=== PATIENT | female | born 1965 | race Caucasian/White ===

== ENCOUNTER 2016-10-24 01:34 | Emergency (ER) | payer MEDICARE ==
[2016-10-24] MEDS ORDERED: Nitrostat 0.4 MG (ED) SL ONE ×2 (01:56→02:15)
[2016-10-24] MEDS ORDERED: BABY ASPIRIN 81 MG CHEW PO ONE (01:56)
[2016-10-24] MEDS ORDERED: Sodium Chloride 0.9% 1000 ML 1,000 ML IV SCH (02:00)
--- NOTE | 2016-10-24 02:00 | ERPHSYRPT ---
- History of Present Illness Time Seen by Provider: 10/24/16 01:48 Source: patient Exam Limitations: no limitations Physician History: PT DEVELOPED A RASH FROM [place]AMPOO AND CHEST PRESSURE 5 DAYS AGO AND WAS ADMITTED TO [facility] IN [place] FOR 3 DAYS. ABOUT 30 MINUTES AGO PT STARTED WITH A NON-PRODUCTIVE COUGH, CHOKING, CHEST HEAVINESS, SHORTNESS OF AIR , NAUSEA AND CONSTANT DULL MID ABDOMINAL PAIN. Allergies/Adverse Reactions: famotidine [From Pepcid] Allergy (Verified 02/25/14 11:42) insulin lispro [From Humalog] Allergy (Verified 11/17/15 15:41) lidocaine Allergy (Verified 02/25/14 11:42) potassium chloride Allergy (Verified 02/25/14 11:42) sumatriptan [From Imitrex] Allergy (Verified 02/25/14 11:42) sumatriptan succinate [From Imitrex] Allergy (Verified 02/25/14 11:42) Home Medications: Aspirin 81 gm Chew [Baby Aspirin 81 mg Chew] 81 mg PO DAILY 11/17/15 [ History] Dextroamphetamine/Amphetamine [Adderall Xr 30 mg Capsule] 2 tab PO DAILY [History] Docusate Sodium 100 mg [Colace 100 MG] 1 tab PO DAILY 11/17/15 [History] Doxepin HCl 2 tab PO DAILY 11/17/15 [History] Esomeprazole Sodium 40 mg PO BID 11/17/15 [History] Estradiol 1 mg [Estrace 1 mg] 1 tab PO DAILY 11/17/15 [History] Ezetimibe 10 mg [Zetia 10 MG] 1 tab PO HS 11/17/15 [History] Hydrochlorothiazide 25 mg [hydroDIURIL 25 MG] 25 mg PO DAILY 11/17/15 [ History] Hydrocodone Bit/Acetaminophen [[place] 10-325 Tablet] 1 tab PO Q4-6HPRN PRN [History] Insulin Aspart [Novolog Flexpen] 60 units SQ TID 11/17/15 [History] Insulin Degludec [Tresiba Flextouch U-200] 150 units SQ DAILY 11/17/15 [History] Lipase/Protease/Amylase [Creon Dr 24,000 Units Capsule] 2 tab PO TID 11/17/15 [ History] Loratadine 10 mg [Claritin 10 mg] 1 tab PO DAILY 11/17/15 [History] Multivitamin W-Minerals/Lutein [Centrum Silver Tablet] 1 tab PO DAILY 11/17/15 [ History] Promethazine HCl 25 mg [Phenergan 25 mg] 1 tab PO DAILY PRN 11/17/15 [ History] Ranitidine HCl 1 tab PO HS 11/17/15 [History] Rosuvastatin Calcium [Crestor] 1 tab PO DAILY 11/17/15 [History] Carvedilol 3.125 mg [Coreg 3.125 MG] 3.125 mg PO BID 07/14/16 [History] Duloxetine HCl 30 mg [Cymbalta 30 MG Capsule] 30 mg PO DAILY 07/14/16 [ History] Fluoxetine HCl [Prozac] 2 cap PO .AM 07/14/16 [History] Fluoxetine HCl [Prozac] 20 mg PO .NOON 07/14/16 [History] Furosemide 20 mg [Lasix 20 mg] 20 mg PO DAILY 07/14/16 [History] Gabapentin [Neurontin] 800 mg PO QID 07/14/16 [History] Meclizine HCl 25 mg [Antivert 25 mg] 25 mg PO TID PRN PRN 07/14/16 [ History] Melatonin/Pyridoxine HCl (B6) [Melatonin 10 mg Tablet] 2 tab PO HS 07/14/16 [ History] Polyethylene Glycol 3350 17 gm [Miralax Powder 17GM PACKET] 17 gm PO DAILY PRN PRN 07/14/16 [History] Potassium Chloride 20 Meq [Klor-Con 20 MEQ] 20 meq PO QID 07/14/16 [History] Thiothixene 5 mg PO BID 07/14/16 [History] Topiramate [Topamax] 200 mg PO BID 07/14/16 [History] Hx Tetanus, Diphtheria Vaccination/Date Given: No Hx Influenza Vaccination/Date Given: No Hx Pneumococcal Vaccination/Date Given: No - Review of Systems Respiratory: Cough, Dyspnea, Other (CHOKING) Cardiac: Other (CHEST HEAVINESS) Abdominal/Gastrointestinal: Abdominal Pain, Nausea Skin: Rash All Other Systems: Reviewed and Negative - Past Medical History Pertinent Past Medical History: Yes Neurological History: Peripheral Neuropathy ENT History: Other Cardiac History: Other Respiratory History: No Pertinent History Endocrine Medical History: Diabetes Type II Musculoskeletal History: Degenerative Disk Disease, Rheumatoid Arthritis GI Medical History: Diverticulosis, Gallbladder Disease History: No Pertinent History Psycho-Social History: Anxiety, Bipolar, Depression, Other Female Reproductive Disorders: Fibroids Other Medical History: 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 AFFECTS BLE AND LEFT ARM, BOTH HANDS, ALSO HAS EARLY SIGNS/SYMPTOMS OF PARKINSON'S DISEASE - Past Surgical History Past Surgical History: Yes Neuro Surgical History: No Pertinent History Cardiac: No Pertinent History Respiratory: No Pertinent History Gastrointestinal: Cholecystectomy Genitourinary: No Pertinent History Musculoskeletal: Other Female Surgical History: Hysterectomy Other Surgical History: surgery right foot pins/toes,right knee "rebuilt"-screw in place, faered hands neuro/nerve surgeries,right wrist x two cyst removed and bone reconstruction,left wrist also,right eye-[place] removed ?, x two, - Social History Smoking Status: Former smoker How long have you smoked: 12 Exposure to second hand smoke: No Drug Use: none Patient Lives Alone: No - Nursing Vital Signs Nursing Vital Signs: Initial Vital Signs Temperature 99.1 F 10/24/16 01:40 Pulse Rate 106 H 10/24/16 01:40 Respiratory Rate 20 10/24/16 01:40 Blood Pressure 130/70 10/24/16 01:40 O2 Sat by Pulse Oximetry 89 L 10/24/16 01:40 Pain Scale Pain Intensity 0 - Physical Exam General Appearance: alert Eye Exam: PERRL/EOMI Ears, Nose, Throat Exam: pharynx normal, moist mucous membranes Neck Exam: normal inspection Respiratory Exam: lungs clear Cardiovascular Exam: normal heart sounds Gastrointestinal/Abdomen Exam: soft, normal bowel sounds Back Exam: normal range of motion Extremity Exam: No pedal edema Neurologic Exam: alert, cooperative Skin Exam: rash (DIFFUSE MACULAR ERYTHEMA) - Course Nursing assessment & vital signs reviewed: Yes EKG Interpreted by Me: RATE ([id number]), Sinus Tach, NORMAL AXIS, NORMAL INTERVALS - Radiology Exams Chest X-ray Interpretation: Interpreted by me, No Pneumonia - CT Exams Chest CT Interpretation: Tele-radiologist Report (2 cm RIGHT THYROID LOBE NODULE. RIGHT PARASPINAL SOFT TISSUE LESION WHICH IS OVOID MEASURING 2.4 X 1.2 cm ON AXIAL IMAGE 100. RECOMMEND FOLLOWUP MRI. POSSIBLY NERVE SHEATH TUMOR. TRACE LEFT -SIDED PLEURAL EFFUSION AND BIBASILAR ATELECTASIS. SUBOPTIMAL OPACIFICATION OF THE PULMONARY ARTERIES. NO VISUALIZED FILLINF DEFECTS WITHIN THE PULMONARY ARTERIES TO SUGGEST PULMONARY EMBOLI.) Ordered Tests: Active Orders 24 hr Category Date Time Status Accucheck STAT Care 10/24/16 04:03 Active Donation Specialist STAT Care 10/24/16 01:56 Active EKG-ER Only STAT Care 10/24/16 01:56 Active IV Insertion STAT Care 10/24/16 01:56 Active Oxygen-ED Only NASAL CANNULA 2 lpm Care 10/24/16 01:56 Active Pulse Oximetry (ED) STAT Care 10/24/16 01:56 Active CHEST 1 VIEW (PORTABLE) Stat Exams 10/24/16 01:56 Taken CHEST WITH CONTRAST [CT] Stat Exams 10/24/16 02:57 Taken AMYLASE Stat Lab 10/24/16 02:05 Completed ARTERIAL BLOOD GASES Urgent Lab 10/24/16 02:16 Completed CBC W DIFF Stat Lab 10/24/16 02:05 Completed CMP Stat Lab 10/24/16 02:05 Completed D-DIMER QUANTITATION Stat Lab 10/24/16 02:05 Completed LIPASE Stat Lab 10/24/16 02:05 Completed MAGNESIUM Stat Lab 10/24/16 02:05 Completed Manual Differential NC Stat Lab 10/24/16 02:05 Completed NT PRO BNP Stat Lab 10/24/16 02:05 Completed TROPONIN Q3H Lab 10/24/16 02:05 Completed TROPONIN Q3H Lab 10/24/16 05:00 Ordered TROPONIN Q3H Lab 10/24/16 08:00 Ordered TROPONIN Q3H Lab 10/24/16 11:00 Ordered TROPONIN Q3H Lab 10/24/16 14:00 Ordered UA W/RFX UR CULTURE Stat Lab 10/24/16 02:55 Completed Medication Summary Generic Name Dose Route Start Last Admin Trade Name Freq PRN Reason Stop Dose Admin Sodium Chloride 1,000 mls @ 100 mls/hr 10/24/16 02:00 10/24/16 02:27 Sodium Chloride 0.9% 1000 Ml IV 11/23/16 01:59 100 mls/hr .Q10H DANIELITO Administration Discontinued Medications Generic Name Dose Route Start Last Admin Trade Name Freq PRN Reason Stop Dose Admin Aspirin 324 mg 10/24/16 01:56 10/24/16 02:29 Baby Aspirin 81 Mg Chew PO 10/24/16 01:57 324 mg STAT ONE Administration Aspirin Confirm 10/24/16 02:15 Baby Aspirin 81 Mg Chew Administered 10/24/16 02:16 Dose 324 mg .ROUTE .STK-MED ONE Nitroglycerin 0.4 mg 10/24/16 01:56 10/24/16 02:29 Nitrostat 0.4 Mg (Ed) SL 10/24/16 01:57 0.4 mg STAT ONE Administration Nitroglycerin Confirm 10/24/16 02:15 Nitrostat 0.4 Mg (Ed) Administered 10/24/16 02:16 Dose 0.4 mg SL .STK-MED ONE Lab/Rad Data: Laboratory Result Diagrams 10/24/16 02:05 10/24/16 02:05 Laboratory Results 10/24/16 10/24/16 10/24/16 Range/Units 02:55 02:16 02:05 WBC (4.0-10.5) K/mm3 RBC (4.1-5.4) M/mm3 Hgb (12.0-16.0) gm/dl Hct (35-47) % MCV (78-100) fl MCH (26-32) pg MCHC (32-36) g/dl RDW (11.5-14.0) % Plt Count (150-450) K/mm3 MPV (6-9.5) fl D-Dimer 1238 H* (0-500) ng/mL Puncture Site LEFT RADIAL pCO2 42 (35-45) mmHg pO2 68 L (75-100) mmHg Base Excess 1.0 (-2.0-2.0) O2 Saturation 92.8 L (94-100) g/dF ABG pH 7.40 (7.35-7.45) ABG HCO3 26.0 (22-28) ABG O2 Sat (Measured) 96.0 (95-100) % Diego Test YES A-a Gradient 136 a/A Ratio 0.33 Hemoglobin 13.4 Carboxyhemoglobin 1.8 (0.0-6.9) % THgb Methemoglobin 1.4 (1.4-1.5) % Temperature 37.0 C POC O2 Flow Rate 36 % Sodium (136-145) mEq/L Potassium 3.5 (3.5-5.1) mEq/L Chloride (98-107) mEq/L Carbon Dioxide (21-32) mEq/L Anion Gap (5-15) MEQ/L BUN (9-20) mg/dL Creatinine (0.55-1.30) mg/dl Estimated GFR ML/MIN Glucose (70-110) MG/DL Calcium (8.5-10.1) mg/dL Magnesium (1.8-2.4) mg/dL Total Bilirubin (0.2-1.0) mg/dL AST (15-37) U/L ALT (12-78) U/L Alkaline Phosphatase (46-116) U/L Troponin I (0.000-0.056) ng/ml NT-Pro-B Natriuret Pep (0-125) pg/ml Serum Total Protein (6.4-8.2) gm/dL Albumin (3.4-5.0) g/dL Amylase (25-115) U/L Lipase (73-393) U/L Ur Collection Type CLEAN CATCH Urine Color YELLOW (YELLOW) Urine Appearance CLEAR (CLEAR) Urine pH 7.0 (5-6) Ur Specific [place] 1.005 (1.005-1.025) Urine Protein NEGATIVE (Negative) Urine Ketones NEGATIVE (NEGATIVE) Urine Blood NEGATIVE (0-5) Regis/ul Urine Nitrite NEGATIVE (NEGATIVE) Urine Bilirubin NEGATIVE (NEGATIVE) Urine Urobilinogen NORMAL (0-1) mg/dL Ur Leukocyte Esterase NEGATIVE (NEGATIVE) Urine Glucose 1000 (NEGATIVE) mg/dL Specimen Received 10/24/16 0255 10/24/16 10/24/16 10/24/16 Range/Units 02:05 02:05 02:05 WBC 8.8 (4.0-10.5) K/mm3 RBC 4.91 (4.1-5.4) M/mm3 Hgb 13.8 (12.0-16.0) gm/dl Hct 43.3 (35-47) % MCV 88.2 (78-100) fl MCH 28.1 (26-32) pg MCHC 31.9 L (32-36) g/dl RDW 16.0 H (11.5-14.0) % Plt Count 222 (150-450) K/mm3 MPV 11.2 H (6-9.5) fl D-Dimer (0-500) ng/mL Puncture Site pCO2 (35-45) mmHg pO2 (75-100) mmHg Base Excess (-2.0-2.0) O2 Saturation (94-100) g/dF ABG pH (7.35-7.45) ABG HCO3 (22-28) ABG O2 Sat (Measured) (95-100) % Diego Test A-a Gradient a/A Ratio Hemoglobin Carboxyhemoglobin (0.0-6.9) % THgb Methemoglobin (1.4-1.5) % Temperature C POC O2 Flow Rate % Sodium 139 (136-145) mEq/L Potassium 3.5 (3.5-5.1) mEq/L Chloride 101 (98-107) mEq/L Carbon Dioxide 26.5 (21-32) mEq/L Anion Gap 15.4 H (5-15) MEQ/L BUN 11 (9-20) mg/dL Creatinine 0.96 (0.55-1.30) mg/dl Estimated GFR > 60 ML/MIN Glucose 358 H (70-110) MG/DL Calcium 9.0 (8.5-10.1) mg/dL Magnesium 1.8 (1.8-2.4) mg/dL Total Bilirubin 0.40 (0.2-1.0) mg/dL AST 42 H (15-37) U/L ALT 55 (12-78) U/L Alkaline Phosphatase 110 (46-116) U/L Troponin I < 0.017 (0.000-0.056) ng/ml NT-Pro-B Natriuret Pep 472 H (0-125) pg/ml Serum Total Protein 6.6 (6.4-8.2) gm/dL Albumin 3.0 L (3.4-5.0) g/dL Amylase 19 L (25-115) U/L Lipase 76 (73-393) U/L Ur Collection Type Urine Color (YELLOW) Urine Appearance (CLEAR) Urine pH (5-6) Ur Specific [place] (1.005-1.025) Urine Protein (Negative) Urine Ketones (NEGATIVE) Urine Blood (0-5) Regis/ul Urine Nitrite (NEGATIVE) Urine Bilirubin (NEGATIVE) Urine Urobilinogen (0-1) mg/dL Ur Leukocyte Esterase (NEGATIVE) Urine Glucose (NEGATIVE) mg/dL Specimen Received - Progress Discussed with Dr.: Other (SPOKE WITH DR Amelia BENSON([id number]) WHO ACCEPTED PT FOR TRANSFER TO [facility] A DIRECT ADMISSION.) - Departure Time of Disposition: 04:17 Departure Disposition: Transfer ([facility]) Clinical Impression: CHEST HEAVINESS, DYSPNEA, PN, DM, ARTHRITIS, BIPOLAR, ANXIETY Condition: Stable Critical Care Time: No
[2016-10-24 02:13] LABS: Mean Cell Volume 88.2 fl (78-100); Mean Corpuscular Hemoglobin 28.1 pg (26-32); Mean Platelet Volume 11.2 fl (6-9.5); Platelet Count 222 K/mm3 (150-450); Red Blood Count 4.91 M/mm3 (4.1-5.4); White Blood Count 8.8 K/mm3 (4.0-10.5)
[2016-10-24] MEDS ORDERED: BABY ASPIRIN 81 MG CHEW ONE (02:15)
[2016-10-24] MEDS ORDERED: Sodium Chloride 0.9% 1000 ML 1,000 ML ONE (02:15)
[2016-10-24 02:19] LABS: A-aADO2 136; ALLEN TEST OK? YES; ARTERIAL BLOOD GAS FIO2 36 %; ARTERIAL BLOOD GAS PO2 68 mmHg (75-100)
[2016-10-24 02:53] LABS: ALKALINE PHOSPHATASE 110 U/L (46-116); ANION GAP 15.4 MEQ/L (5-15); BLOOD UREA NITROGEN 11 mg/dL (9-20); CHLORIDE 101 mEq/L (98-107); Carbon Dioxide 26.5 mEq/L (21-32); Glucose 358 MG/DL (70-110); LIPASE 76 U/L (73-393); MAGNESIUM 1.8 mg/dL (1.8-2.4); Potassium 3.5 mEq/L (3.5-5.1); SGOT/AST 42 U/L (15-37); SGPT/ALT 55 U/L (12-78); SODIUM 139 mEq/L (136-145); Total Protein 6.6 gm/dL (6.4-8.2)
[2016-10-24 03:02] LABS: ADD URINE CULTURE? NO (NO); Bilirubin NEGATIVE (NEGATIVE); Blood NEGATIVE Ery/ul (0-5); COMPLETE URINE MICROSCOPIC? NO; Collection Type CLEAN CATCH; Glucose 1000 mg/dL (NEGATIVE); Leukocyte Esterase NEGATIVE (NEGATIVE)
[2016-10-24 03:58] VITALS: BP 120/73; PULSE 96; O2SAT 96
[2016-10-24 04:22] LABS: Eosinophil 1 % (0.00-3.0); Total Cells Counted 100
[2016-10-24 04:23] LABS: Platelet Estimate NORMAL (NORMAL)
--- NOTE | 2016-10-24 08:08 | XRAY ---
Indication: Cough, chest heaviness, and elevated d-dimer. Multiple contiguous axial images obtained through the chest using 80 cc Isovue 370 contrast and PE protocol. Comparison: None Pulmonary arteries are opacified adequately. There is nonoccluding pulmonary embolus in the distal right upper lobe branch extending into the posterior segmental branch. No other pulmonary embolus. Heart is not enlarged. Aorta is normal in course and caliber. Precarinal calcified node. No pathologic mediastinal/hilar lymphadenopathy. Right thyroid lobe enlarged with 2 cm hypodense lesion. Examination of the lung parenchyma demonstrates right upper lobe calcified granuloma. No other pulmonary mass/nodule, infiltrate, or effusion. Bony thorax intact with minimal spinal osteophytes. There is a 1.1 x 2.5 cm well-circumscribed T9 right paraspinal soft tissue mass. Limited upper abdomen demonstrates mild fatty liver. Caudate lobe of the liver demonstrates 3 cm patchy hypoattenuation. Impression: 1. Nonoccluding right upper lobe pulmonary embolus. No distal infarct. 2. T9 right paraspinal soft tissue mass better evaluated with outpatient MRI. 3. Fatty liver. There is a more focal hypoattenuation in the caudate lobe that can be better evaluated with CT or MRI with contrast. 4. Right thyroid gland enlargement with 2 cm hypodense lesion. Ultrasound may yield further information if clinically warranted. 5. Evidence for old granulomatous disease. Comment: Preliminary interpretation was made by [facility]. Pulmonary embolus and liver lesion not reported. I gave telephone report to Dr. Payton in the ER at 0805 hrs. on October 24, 2016.
--- NOTE | 2016-10-24 08:13 | XRAY ---
Indication: Cough and short of breath. Comparison: November 17, 2015. Portable chest remains clear with right apical calcified granuloma. Heart is not enlarged. Bony thorax intact with minimal degenerative changes. Impression: Stable nonacute chest with chronic feature.
== END 2016-10-24 05:45 | disposition short-term general hospital (02) ==
LOC: SUPCPDRO 01:34 → ED 01:34
DX: R07.89 Other chest pain (principal); R06.00 Dyspnea, unspecified; J18.9 Pneumonia, unspecified organism; E11.9 Type 2 diabetes mellitus without complications; M19.90 Unspecified osteoarthritis, unspecified site; F31.9 Bipolar disorder, unspecified; F41.9 Anxiety disorder, unspecified; R11.10 Vomiting, unspecified
CPT/HCPCS: 36000; 36415; 36600; 71010; 71260; 80053; 81002; 82150; 82375; 82803; 82962; 83690; 83735; 83880; 84484; 85025; 85379; 93005; 93041; 96360; 96361; 96365; 99285; A9270-GY

== ENCOUNTER 2017-08-31 15:22 | Emergency (ER) | payer MEDICARE ==
[2017-08-31] MEDS ORDERED: BACIGUENT PACKET TP ONE (16:10)
--- NOTE | 2017-08-31 16:15 | ERPHSYRPT ---
- History of Present Illness Time Seen by Provider: 08/31/17 16:10 Source: patient Exam Limitations: no limitations Patient Subjective Stated Complaint: Right Knee, Right Ankle, and left knee pain after falling Triage Nursing Assessment: Pt presents to the ED with complaints of fall from standing, abrasion to left knee, pain to right ankle and foot. Pt states "I skipped a step and fell." Pt denies other complaints, denies loss of cosciousness. Pt states she took oxycontin as prescribed at 0700 prior to fall. No distress noted at this time, skin pwd. Physician History: 52-year-old white female with history of peripheral neuropathy diverticulosis fibroids degenerative disc disease rheumatoid arthritis She arrives with complaint of pain in her left knee pain in her right foot and ankle after falling this morning at around 11:00. Patient's denies any other complaints she did have mild pain in her right knee but states it is radiating from her low right foot. According to patient she is on narcotic analgesia she took one at 7:30 this morning. She takes this 3 times a day. She is on blood thinners. Past medical history includes peripheral neuropathy, diverticulosis, degenerative disc disease, rheumatoid arthritis, anxiety, bipolar depression, past surgical history includes surgery on her right foot right knee hands she's had neurosurgery on her wrist she's had C- section 2 Timing/Duration: today (11:00 this morning) Severity: moderate Modifying Factors: Improves With: other Associated Symptoms: No nausea, No vomiting, No abdominal pain, No shortness of breath, No heartburn, No diaphoresis, No cough, No chills, No chest pain, No fever, No headaches, No loss of appetite, No malaise, No rash, No syncope, No seizure, No weakness Allergies/Adverse Reactions: famotidine [From Pepcid] Allergy (Verified 10/24/16 05:05) insulin lispro [From Humalog] Allergy (Verified 10/24/16 05:05) lidocaine Allergy (Verified 10/24/16 05:05) potassium chloride Allergy (Verified 10/24/16 05:05) sumatriptan [From Imitrex] Allergy (Verified 10/24/16 05:05) sumatriptan succinate [From Imitrex] Allergy (Verified 10/24/16 05:05) Home Medications: Aspirin 81 gm Chew [Baby Aspirin 81 mg Chew] 81 mg PO DAILY 11/17/15 [ History] Dextroamphetamine/Amphetamine [Adderall Xr 30 mg Capsule] 2 tab PO DAILY [History] Doxepin HCl 2 tab PO DAILY 11/17/15 [History] Esomeprazole Sodium 40 mg PO BID 11/17/15 [History] Ezetimibe 10 mg [Zetia 10 MG] 1 tab PO HS 11/17/15 [History] Insulin Aspart [Novolog Flexpen] 60 units SQ TID 11/17/15 [History] Insulin Degludec [Tresiba Flextouch U-200] 150 units SQ DAILY 11/17/15 [History] Lipase/Protease/Amylase [Creon Dr 24,000 Units Capsule] 2 tab PO TID 11/17/15 [ History] Multivitamin W-Minerals/Lutein [Centrum Silver Tablet] 1 tab PO DAILY 11/17/15 [ History] Promethazine HCl 25 mg [Phenergan 25 mg] 1 tab PO DAILY PRN 11/17/15 [ History] Ranitidine HCl 1 tab PO HS 11/17/15 [History] Rosuvastatin Calcium [Crestor] 1 tab PO DAILY 11/17/15 [History] Carvedilol 3.125 mg [Coreg 3.125 MG] 3.125 mg PO BID 07/14/16 [History] Duloxetine HCl 30 mg [Cymbalta 30 MG Capsule] 30 mg PO DAILY 07/14/16 [ History] Furosemide 20 mg [Lasix 20 mg] 20 mg PO DAILY 07/14/16 [History] Meclizine HCl 25 mg [Antivert 25 mg] 25 mg PO TID PRN PRN 07/14/16 [ History] Melatonin/Pyridoxine HCl (B6) [Melatonin 10 mg Tablet] 2 tab PO HS 07/14/16 [ History] Polyethylene Glycol 3350 17 gm [Miralax Powder 17GM PACKET] 17 gm PO DAILY PRN PRN 07/14/16 [History] Potassium Chloride 20 Meq [Klor-Con 20 MEQ] 20 meq PO QID 07/14/16 [History] Thiothixene 5 mg PO BID 07/14/16 [History] Oxycodone HCl/Acetaminophen [Percocet 5-325 mg Tablet] 1 tab PO TID 08/31/17 [ History] Hx Tetanus, Diphtheria Vaccination/Date Given: Yes Hx Influenza Vaccination/Date Given: Yes Hx Pneumococcal Vaccination/Date Given: Yes Immunizations Up to Date: Yes - Review of Systems Constitutional: No Fever, No Chills Eyes: No Symptoms Ears, Nose, & Throat: No Symptoms Respiratory: No Cough, No Dyspnea Cardiac: No Chest Pain, No Edema, No Syncope Abdominal/Gastrointestinal: No Abdominal Pain, No Nausea, No Vomiting, No Diarrhea Genitourinary Symptoms: No Dysuria Musculoskeletal: Other (left knee pain and abrasion, pain left foot and ankle) Skin: Other (abrasion left knee) Neurological: No Symptoms Psychological: No Symptoms Endocrine: No Symptoms All Other Systems: Reviewed and Negative - Past Medical History Pertinent Past Medical History: Yes Neurological History: Peripheral Neuropathy ENT History: Other Cardiac History: Other Respiratory History: No Pertinent History Endocrine Medical History: Diabetes Type II Musculoskeletal History: Degenerative Disk Disease, Rheumatoid Arthritis GI Medical History: Diverticulosis, Gallbladder Disease History: No Pertinent History Psycho-Social History: Anxiety, Bipolar, Depression, Other Female Reproductive Disorders: Fibroids Other Medical History: 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 AFFECTS BLE AND LEFT ARM, BOTH HANDS, ALSO HAS EARLY SIGNS/SYMPTOMS OF PARKINSON'S DISEASE - Past Surgical History Past Surgical History: Yes Neuro Surgical History: No Pertinent History Cardiac: No Pertinent History Respiratory: No Pertinent History Gastrointestinal: Cholecystectomy Genitourinary: No Pertinent History Musculoskeletal: Other Female Surgical History: Hysterectomy Other Surgical History: surgery right foot pins/toes,right knee "rebuilt"-screw in place, fareed hands neuro/nerve surgeries,right wrist x two cyst removed and bone reconstruction,left wrist also,right eye-[place] removed ?, x two, - Social History Smoking Status: Former smoker How long have you smoked: 12 Exposure to second hand smoke: No Drug Use: none Patient Lives Alone: No - Female History Hx Now: No - Nursing Vital Signs Nursing Vital Signs: Initial Vital Signs Temperature 98.8 F 08/31/17 15:36 Pulse Rate 100 H 08/31/17 15:36 Respiratory Rate 16 08/31/17 15:36 Blood Pressure 143/9 08/31/17 15:36 O2 Sat by Pulse Oximetry 96 08/31/17 15:36 Pain Scale Pain Intensity 6 - Physical Exam General Appearance: mild distress Eye Exam: PERRL/EOMI, eyes nml inspection Ears, Nose, Throat Exam: normal ENT inspection, TMs normal, pharynx normal, moist mucous membranes Neck Exam: normal inspection, non-tender, supple, full range of motion Respiratory Exam: normal breath sounds, lungs clear, No respiratory distress Cardiovascular Exam: regular rate/rhythm, normal heart sounds, normal peripheral pulses Gastrointestinal/Abdomen Exam: soft, normal bowel sounds, No tenderness, No mass Back Exam: normal inspection, normal range of motion, No CVA tenderness, No vertebral tenderness Extremity Exam: other (full range of motion all extremities pain with palpation left foot and ankle, abrasion anterior left knee pain with movement left knee) Neurologic Exam: alert, oriented x 3, cooperative, direct sales representative II-XII nml as tested, normal mood/affect, nml cerebellar function, nml station & gait, sensation nml, No motor deficits Skin Exam: warm, dry, other (6 cm abrasion left anterior knee), No rash SpO2 Interpretation: normal (96%) SpO2: 96 Oxygen Delivery: Room Air - Course Nursing assessment & vital signs reviewed: Yes - Radiology Exams Right Ankle X-ray Interpretation: Interpreted by me, Negative, No Fracture, No Subluxation Right Foot X-ray Interpretation: Interpreted by me (hardware in place no fractures no subluxation) Left Knee X-ray Interpretation: Interpreted by me, Negative, No Fracture, No Subluxation Ordered Tests: Active Orders 24 hr Category Date Time Status Wound Care STAT Care 08/31/17 16:10 Active ANKLE (3 VIEWS) Stat Exams 08/31/17 16:11 Taken FOOT (MINIMUM 3 VIEWS) Stat Exams 08/31/17 16:11 Taken KNEE (3 VIEWS) Stat Exams 08/31/17 16:10 Taken Medication Summary Discontinued Medications Generic Name Dose Route Start Last Admin Trade Name Freq PRN Reason Stop Dose Admin Bacitracin Zinc 0.9 gm 08/31/17 16:10 Baciguent Packet TP 08/31/17 16:11 STAT ONE Bacitracin Zinc Confirm 08/31/17 16:32 Baciguent Packet Administered 08/31/17 16:33 Dose 1 gm .ROUTE .STK-MED ONE - Progress Progress: improved Progress Note: 08/31/17 17:04 52-year-old white female with history of chronic pain arrives with complaint of pain in her left anterior knee right foot and ankle after falling this morning at around 11:00. Patient with a proximally 6 cm abrasion to her left anterior knee she states that her knee otherwise hurts but is stable. She also has pain in her right foot and ankle. X-ray of her left knee right foot right ankle all negative for fracture there is hardware noted in the right foot appears to be stable. I've asked the nurses to clean the patient's left knee apply bacitracin and dressing will have the nurses place Todd wrap to the right foot and give patient a postop shoe. Patient is already on chronic narcotic analgesia she states she took one this morning she is due to take another one now she states she would take this at home as she is driving. Consideration was given to giving the patient Toradol injection however patient is on Zarrella toe so will avoid this. Impression 1 accidental fall to contusion left knee, 3 left knee pain 4. Right foot sprain. 5 sprain. Plan as above continue home narcotic analgesia 08/31/17 17:09 The patient's tetanus is up-to-date - Departure Time of Disposition: 17:06 Departure Disposition: Home Clinical Impression: Abrasion, left knee, initial encounter Accidental fall Qualifiers: Encounter type: initial encounter Qualified Code(s): W19.XXXA - Unspecified fall, initial encounter Contusion of left knee Qualifiers: Encounter type: initial encounter Qualified Code(s): S80.02XA - Contusion of left knee, initial encounter Right foot sprain Qualifiers: Encounter type: initial encounter Qualified Code(s): S93.601A - Unspecified sprain of right foot, initial encounter Right ankle sprain Qualifiers: Encounter type: initial encounter Involved ligament of ankle: unspecified ligament Qualified Code(s): S93.401A - Sprain of unspecified ligament of right ankle, initial encounter Condition: Fair Critical Care Time: No Referrals: OMAR BENSON MD [Primary Care Provider] - Instructions: Contusion (DC), Preventing Falls Additional Instructions: Return home. Ice to contused areas 24-48 hours. Narcotic analgesia as prescribed by your family doctor or pain program control analyst. Bacitracin to abrasion until healed. Follow-up with your family doctor if symptoms are worse no better in 48 hours, or persist longer than one week. Return for acute distress or for severe symptoms.
[2017-08-31] MEDS ORDERED: BACIGUENT PACKET ONE (16:32)
--- NOTE | 2017-08-31 17:05 | XRAY ---
Exam: 3 view right ankle series from 08/31/2017. Comparison: None available. Indication: Fall, right ankle/foot pain. Findings: AP, oblique, and lateral radiographs of the right ankle were obtained. The lateral image is slightly rotated. I see no acute fracture of the distal right tibia or fibula. There is a small chronic-appearing, oval-shaped, calcification adjacent to the medial malleolus tip which probably represents an accessory ossicle. The right ankle mortise appears well-preserved and is uniform. There is a question of slight soft tissue prominence overlying the lateral aspect of the distal portion of the right ankle and hindfoot. Correlate clinically. The subtalar joint appears unremarkable. Prominent plantar and posterior calcaneal spurring is seen. Impression: 1. No acute fracture or dislocation of the right ankle is seen. There is question of minimal soft tissue swelling overlying the lateral aspect of the distal right ankle and hindfoot on the AP image. 2. Prominent plantar and posterior right calcaneal spurring is seen.
--- NOTE | 2017-08-31 17:06 | XRAY ---
Exam: 3 view left knee series from 08/31/2017. Comparison: 3 view left knee series from 05/25/2013. Indication: Fall, left knee pain. Findings: AP, internal rotation, and lateral radiographs of the left knee were obtained. I see no acute fracture or dislocation. Minimal suprapatellar fluid cannot be excluded. This is unchanged from 05/25/2013. Mild prepatellar soft tissue prominence/swelling is seen. No radiopaque soft tissue foreign body is seen. The patellofemoral joint appears maintained. Minor spurring is seen at the anterior superior and posterior superior margin of the left patella. There is mild to moderate narrowing of the medial compartment of the left knee joint with mild marginal spurring. This is unchanged. The lateral compartment of the left knee joint appears unremarkable. No other focal bone lesion is seen. Impression: 1. No acute left knee fracture or dislocation is seen. I cannot exclude a minimal amount of suprapatellar fluid. However, this is unchanged from 05/25/2013. 2. There is some prepatellar and infrapatellar anterior soft tissue prominence which could represent superficial soft tissue swelling. This is more prominent than that noted on 05/25/2013. Correlate clinically. 3. Predominantly mild to moderate medial compartment left knee joint osteoarthritis. This appears about the same as 05/25/2013.
--- NOTE | 2017-08-31 17:11 | XRAY ---
Exam: 3 views of the right foot from 08/31/2017. Comparison: 3 views of the right foot from 02/10/2016. Indication: Fall, right ankle/foot pain. Findings: AP, oblique, and lateral films of the right foot were obtained. I see no acute fracture or dislocation within the right foot. There is evidence of prior surgery with a small screw projected over the distal right first metatarsal head. It appears the patient may have had a prior bunionectomy. Alignment of the right first MTP joint appears unremarkable. The tarsal-metatarsal joints align correctly. Moderate plantar and posterior right calcaneal spurs is again seen. No other focal bone lesion is seen. No radiopaque soft tissue foreign body is seen. Impression: 1. No acute fracture or dislocation of the right foot is seen. 2. Evidence of prior surgery at the level of the distal right first metatarsal head with a threaded screw projected over this region. 3. There is at least moderate plantar and posterior right calcaneal spurring representing no change from 02/10/2016.
[2017-08-31 17:27] VITALS: BP 142/74; PULSE 93; O2SAT 98
== END 2017-08-31 17:28 | disposition home or self-care (01) ==
LOC: ED 15:22
DX: W19.XXXA Unspecified fall, initial encounter (principal); S80.02XA Contusion of left knee, initial encounter; S93.601A Unspecified sprain of right foot, initial encounter; S93.491A Sprain of other ligament of right ankle, initial encounter
CPT/HCPCS: 73562; 73610; 73630; 99283; A9270-GY

== ENCOUNTER 2018-09-09 17:01 | Emergency (ER) | payer MEDICARE ==
[2018-09-09 17:17] VITALS: O2SAT 96
--- NOTE | 2018-09-09 18:33 | ERPHSYRPT ---
- History of Present Illness Source: patient Exam Limitations: no limitations Patient Subjective Stated Complaint: pt here for pain to left hand for a week now, she states she fell land got hand caught in fencing, Triage Nursing Assessment: pt alert, resp easy, skin w/d/p, walked in with cane , she has yellow bruising to left hand, no swelling nited Physician History: Pt is a 53 y/o female that presented to the ER after injuring her L hand. Pt was walking down stairs and tripped. She grabbed the rail of the [employer] and her hand got cought between the rail and the wall. Pt has some limited ROM and swelling of soft tissue. Pt denied all other complains. Occurred: just prior to arrival Quality: aching Severity of Pain-Max: mild Severity of Pain-Current: mild Extremities Pain Location: hand: left (soft tissue swelling and pain in the L hand) Modifying Factors: Improves With: cold therapy, pain medication Associated Symptoms: none Allergies/Adverse Reactions: famotidine [From Pepcid] Allergy (Severe, Verified 09/09/18 17:18) Vomiting insulin lispro [From Humalog] Allergy (Severe, Verified 09/09/18 17:18) Anaphylactic Reaction lidocaine Allergy (Severe, Verified 09/09/18 17:18) Anaphylactic Reaction pt states all "edgar" potassium chloride Allergy (Severe, Verified 09/09/18 17:18) Swelling of Tongue and Lips liquid potassium caused tongue swelling. pt takes tablets without issue sumatriptan [From Imitrex] Allergy (Severe, Verified 09/09/18 17:18) Anaphylactic Reaction sumatriptan succinate [From Imitrex] Allergy (Severe, Verified 09/09/18 17:18) Anaphylactic Reaction zolpidem [From Ambien] Allergy (Verified 09/09/18 17:18) Home Medications: Aspirin 81 gm Chew [Baby Aspirin 81 mg Chew] 81 mg PO DAILY 11/17/15 [ History] Doxepin HCl 2 tab PO DAILY 11/17/15 [History] Insulin Aspart [Novolog Flexpen] 55 units SQ TID 11/17/15 [History] Insulin Degludec [Tresiba Flextouch U-200] 150 units SQ DAILY 11/17/15 [History] Lipase/Protease/Amylase [Creon Dr 24,000 Units Capsule] 2 tab PO TID 11/17/15 [ History] Multivitamin W-Minerals/Lutein [Centrum Silver Tablet] 1 tab PO DAILY 11/17/15 [ History] Promethazine HCl 25 mg [Phenergan 25 mg] 1 tab PO DAILY PRN 11/17/15 [ History] Ranitidine HCl 1 tab PO HS 11/17/15 [History] Rosuvastatin Calcium [Crestor] 1 tab PO DAILY 11/17/15 [History] Carvedilol 3.125 mg [Coreg 3.125 MG] 3.125 mg PO BID 07/14/16 [History] Duloxetine HCl 30 mg [Cymbalta 30 MG Capsule] 60 mg PO DAILY 07/14/16 [ History] Furosemide 20 mg [Lasix 20 mg] 20 mg PO DAILY 07/14/16 [History] Meclizine HCl 25 mg [Antivert 25 mg] 25 mg PO TID PRN PRN 07/14/16 [ History] Melatonin/Pyridoxine HCl (B6) [Melatonin 10 mg Tablet] 2 tab PO HS 07/14/16 [ History] Polyethylene Glycol 3350 17 gm [Miralax Powder 17GM PACKET] 17 gm PO DAILY PRN PRN 07/14/16 [History] Potassium Chloride 20 Meq [Klor-Con 20 MEQ] 20 meq PO TID 07/14/16 [History] Oxycodone HCl/Acetaminophen [Percocet 5-325 mg Tablet] 1 tab PO TID 08/31/17 [ History] Cyclobenzaprine HCl [Flexeril] 5 mg PO TID 03/07/18 [History] Haloperidol 5 mg [Haldol 5 MG] 5 mg PO BID 03/07/18 [History] Temazepam 15 mg [Restoril 15 MG] 15 mg DAILY 09/09/18 [History] Hx Tetanus, Diphtheria Vaccination/Date Given: Yes Hx Influenza Vaccination/Date Given: Yes Hx Pneumococcal Vaccination/Date Given: Yes Immunizations Up to Date: Yes - Review of Systems Constitutional: No Fever, No Chills Musculoskeletal: Other (hand pain on the L), No Back Pain, No Neck Pain - Past Medical History Pertinent Past Medical History: Yes Neurological History: Migraines, Peripheral Neuropathy ENT History: Other Cardiac History: Other Respiratory History: Other Endocrine Medical History: Diabetes Type II, Hypothyroidism, Other Musculoskeletal History: Osteoarthritis GI Medical History: Diverticulosis, GERD, Gallbladder Disease History: No Pertinent History Psycho-Social History: Anxiety, Bipolar, Depression, Other Female Reproductive Disorders: Fibroids Other Medical History: Diabetic neuropathy in B hands and feet. Psoratic OA. Liver polyps, Pt sleeps with 2L O2. Blockages in heart valves that are not severe enough to do surgery. PE blood clots. - Past Surgical History Past Surgical History: Yes Neuro Surgical History: No Pertinent History Cardiac: No Pertinent History Respiratory: No Pertinent History Gastrointestinal: Cholecystectomy Genitourinary: No Pertinent History Musculoskeletal: Other Female Surgical History: Hysterectomy Other Surgical History: surgery right foot pins/toes,right knee "rebuilt"-screw in place, fareed hands neuro/nerve surgeries,right wrist x two cyst removed and bone reconstruction,left wrist also,right eye-[place] removed ?, x two, back surgery - Social History Smoking Status: Never smoker How long have you smoked: 12 Exposure to second hand smoke: No Drug Use: none Patient Lives Alone: No - Female History Hx Last Menstrual Period: post Hx Now: No - Nursing Vital Signs Nursing Vital Signs: Initial Vital Signs Temperature 97.0 F 09/09/18 17:11 Pulse Rate 106 H 09/09/18 17:11 Respiratory Rate 16 09/09/18 17:11 Blood Pressure 104/83 09/09/18 17:11 O2 Sat by Pulse Oximetry 96 09/09/18 17:11 Pain Scale Pain Intensity 8 - Physical Exam General Appearance: alert Back Exam: normal inspection, No vertebral tenderness Shoulder Exam: normal inspection Elbow/Forearm Exam: normal inspection Wrist Exam: normal inspection Hand Exam: limited ROM (secondary to mild soft tissue swelling.) Neuro/Tendon Exam: normal sensation, normal motor functions SpO2: 96 - Radiology Exams Left Hand X-ray Interpretation: Interpreted by me (No fracture. Soft tissue swelling.) Ordered Tests: Active Orders 24 hr Category Date Time Status HAND (MINIMUM 3 VIEWS) Stat Exams 09/09/18 18:21 Taken - Progress Progress: unchanged Progress Note: 09/09/18 18:32 Pt was seen and examined. XR of L hand did not show any fracture or bony injury. Some soft tissue swelling. Pt should Ice the hand and elevate. She can use OTC pain meds as needed. Will see patient in: office Counseled pt/family regarding: need for follow-up - Departure Departure Disposition: Home Clinical Impression: Injury of left hand Condition: Stable Critical Care Time: No Referrals: OMAR BENSON MD [Primary Care Provider] - Additional Instructions: Ice and elevate the L hand. Use OTC meds for pain. F/U with PCP.
[2018-09-09 18:48] VITALS: BP 103/77; PULSE 95
--- NOTE | 2018-09-09 22:16 | XRAY ---
Indication: Pain following fall one week ago. Comparison: None 3 views of the left hand demonstrates mild degenerative changes base 1st metacarpal. No other bony, articular, or soft tissue abnormalities.
== END 2018-09-09 18:55 | disposition home or self-care (01) ==
LOC: ED 17:01
DX: S69.92XA Unspecified injury of left wrist, hand and finger(s), initial encounter (principal); W10.9XXA Fall (on) (from) unspecified stairs and steps, initial encounter; Z79.899 Other long term (current) drug therapy; E11.9 Type 2 diabetes mellitus without complications
CPT/HCPCS: 73130; 99283

== ENCOUNTER 2018-11-04 20:41 | Emergency (ER) | payer MEDICARE ==
[2018-11-04 21:00] VITALS: O2SAT 97
--- NOTE | 2018-11-04 21:11 | ERPHSYRPT ---
- History of Present Illness Time Seen by Provider: 11/04/18 21:01 Source: patient Patient Subjective Stated Complaint: Left upper leg pain Triage Nursing Assessment: Patient ambulated back to ED and transferred self to bed. Patient A+O X3. Patient's skin pink, warm and dry. Patient complains of left upper leg pain from groin to knee constant, sharp since yesterday. Patient denies injury. Patient's left groin noted to be red and galded. No redness, warmth or swelling noted to left upper leg. Patient states pain starts at groin and goes down behind left knee. Pulses noted and strong. Physician History: 53-year-old white female with history of schizophrenia, bipolar depression, associative identity disorder, dorsalis a, chronic pain syndrome, diabetes who apparently has had PEs in the past arrives with complaint of pain in her left side radiating to her left knee symptoms since yesterday she denies any injury no fever no nausea no vomiting. Patient is chronically on Xaralto and aspirin, she is also chronically on oxycodone temazepam Past medical history includes schizophrenia, bipolar depression, dissociative identity disorder, personality, abdominal pain, pancreatitis, diabetes type 2, irritable bowel syndrome, chronic pain syndrome, GERD, COPD, osteoarthritis, liver polyps, she states that she's had blockage in her heart but nothing surgical. Past surgical history includes cholecystectomy, hysterectomy, ORIF of foot, right knee, hand surgery bilaterally, chorizon removed from eye, , back surgery. Timing/Duration: yesterday Severity: moderate Modifying Factors: Improves With: nothing Associated Symptoms: rash (gaulded skin left inguinal region), No nausea, No vomiting, No abdominal pain, No shortness of breath, No heartburn, No diaphoresis, No cough, No chills, No chest pain, No fever, No headaches, No loss of appetite, No malaise Allergies/Adverse Reactions: famotidine [From Pepcid] Allergy (Severe, Verified 11/04/18 20:47) Vomiting insulin lispro [From Humalog] Allergy (Severe, Verified 11/04/18 20:47) Anaphylactic Reaction lidocaine Allergy (Severe, Verified 11/04/18 20:47) Anaphylactic Reaction pt states all "edgar" potassium chloride Allergy (Severe, Verified 11/04/18 20:47) Swelling of Tongue and Lips liquid potassium caused tongue swelling. pt takes tablets without issue sumatriptan [From Imitrex] Allergy (Severe, Verified 11/04/18 20:47) Anaphylactic Reaction sumatriptan succinate [From Imitrex] Allergy (Severe, Verified 11/04/18 20:47) Anaphylactic Reaction zolpidem [From Ambien] Allergy (Verified 11/04/18 20:47) Home Medications: Albuterol Sulfate [Proair Respiclick] 90 mcg IH QID 11/04/18 [History] Alirocumab [Praluent Pen] 75 mg SQ UD 11/04/18 [History] Ascorbic Acid 500 mg [Vitamin C 500 MG] 500 mg PO DAILY 11/04/18 [History] Aspirin EC 81 mg [Ecotrin 81 mg] 81 mg PO DAILY 11/04/18 [History] Calcium Citrate [Calcitrate] 200 mg PO TID 11/04/18 [History] Carvedilol 3.125 mg [Coreg 3.125 MG] 3.125 mg PO BID 11/04/18 [History] Clobetasol Propionate/Emoll [Clobetasol Emollient 0.05% Crm] 15 gm TP 2XW [History] Cyanocobalamin (Vitamin B-12) [Vitamin B-12] 500 mcg PO DAILY 11/04/18 [History] Doxepin HCl 100 mg PO HS 11/04/18 [History] Duloxetine HCl 30 mg [Cymbalta 30 MG Capsule] 60 mg PO DAILY 11/04/18 [ History] Ergocalciferol (Vitamin D2) [Drisdol] 50,000 unit PO WEEKLY 11/04/18 [History] Esomeprazole Magnesium [Nexium] 40 mg PO DAILY 11/04/18 [History] Furosemide 20 mg [Lasix 20 mg] 20 mg PO BID 11/04/18 [History] Gabapentin Enacarbil [Horizant] 600 mg PO HS 11/04/18 [History] Glimepiride 4 mg [Amaryl 4 mg] 4 mg PO BID 11/04/18 [History] Glycopyrrolate/Formoterol Fum [Bevespi Aerosphere Inhaler] 9 mcg IH BID [History] Haloperidol 5 mg [Haldol 5 MG] 5 mg PO TID 11/04/18 [History] Icosapent Ethyl [Vascepa] 1 gm PO BID 11/04/18 [History] Insulin Aspart Prot/Insuln Asp [Novolog Mix 70-30 Flexpen Syrn] 25 unit SQ TID 11/04/18 [History] Insulin Glargine,Hum.rec.anlog [Lantus Solostar] 80 unit SQ BID 11/04/18 [ History] Ipratropium/Albuterol Sulfate [Combivent Inhaler] 14.7 gm IH QID 11/04/18 [ History] Ipratropium/Albuterol Sulfate [Iprat-Albut 0.5-3(2.5) mg/3 ml] 3 ml IH Q6H 11/04 [History] Levothyroxine Sodium 75 Mcg [Synthroid 75 Mcg] 75 mcg PO DAILY 11/04/18 [ History] Lipase/Protease/Amylase [Creon Dr 24,000 Units Capsule] 2 each PO QID 11/04/18 [ History] Loxapine Succinate [Loxapine] 10 mg PO BID 11/04/18 [History] Metoclopramide HCl 5 mg PO HS 11/04/18 [History] Montelukast Sodium 10 mg [Singulair 10 MG] 10 mg PO DAILY 11/04/18 [History] Multivit-Min/Iron/Folic/Lutein [Centrum Silver Women Tablet] 1 each PO DAILY 06/20 [History] Mupirocin [Bactroban OINTMENT] 22 gm TP TID 11/04/18 [History] Nystatin 4 ml PO QID 11/04/18 [History] Oxycodone HCl/Acetaminophen [Percocet 5-325 mg Tablet] 1 each PO TID 11/04/18 [ History] Pioglitazone 30 mg [Actos 30 MG] 30 mg PO DAILY 11/04/18 [History] Polyethylene Glycol 3350 17 gm [Miralax Powder 17GM PACKET] 17 gm PO DAILY [History] Potassium Chloride 10 Meq Tab* [Klor Con 10 MEQ] 10 meq PO TID 11/04/18 [ History] Promethazine HCl 12.5 mg PO DAILY 11/04/18 [History] Ranitidine HCl [Zantac] 300 mg PO DAILY 11/04/18 [History] Rivaroxaban 10 mg Tablet [Xarelto 10 mg Tablet] 10 mg PO DAILY 11/04/18 [ History] Topiramate 100 mg PO BID 11/04/18 [History] Hx Tetanus, Diphtheria Vaccination/Date Given: Yes Hx Influenza Vaccination/Date Given: Yes Hx Pneumococcal Vaccination/Date Given: No Immunizations Up to Date: Yes - Review of Systems Constitutional: No Fever, No Chills Eyes: No Symptoms Ears, Nose, & Throat: No Symptoms Respiratory: No Cough, No Dyspnea Cardiac: No Chest Pain, No Edema, No Syncope Abdominal/Gastrointestinal: No Abdominal Pain, No Nausea, No Vomiting, No Diarrhea Musculoskeletal: Other (left thigh pain since yesterday), No Neck Pain, No Fall , No Injury Skin: Other (gaulded skin left inguinal region) Neurological: No Dizziness, No Focal Weakness, No Sensory Changes Psychological: No Symptoms Endocrine: No Symptoms All Other Systems: Reviewed and Negative - Past Medical History Pertinent Past Medical History: Yes Neurological History: Migraines, Peripheral Neuropathy ENT History: Other Cardiac History: Other Respiratory History: Other Endocrine Medical History: Diabetes Type II, Hypothyroidism, Other Musculoskeletal History: Osteoarthritis GI Medical History: Diverticulosis, GERD, Gallbladder Disease History: No Pertinent History Psycho-Social History: Anxiety, Bipolar, Depression, Other Female Reproductive Disorders: Fibroids Other Medical History: Diabetic neuropathy in B hands and feet. Psoratic OA. Liver polyps, Pt sleeps with 2L O2. Blockages in heart valves that are not severe enough to do surgery. PE blood clots, schizophrenia - Past Surgical History Past Surgical History: Yes Neuro Surgical History: No Pertinent History Cardiac: No Pertinent History Respiratory: No Pertinent History Gastrointestinal: Cholecystectomy Genitourinary: No Pertinent History Musculoskeletal: Other Female Surgical History: Hysterectomy, Section Other Surgical History: surgery right foot pins/toes,right knee "rebuilt"-screw in place, fareed hands neuro/nerve surgeries,right wrist x two cyst removed and bone reconstruction,left wrist also,right eye-[place] removed ?, x two, back surgery - Social History Smoking Status: Never smoker How long have you smoked: 12 Exposure to second hand smoke: No Drug Use: none Patient Lives Alone: No - Female History Hx Last Menstrual Period: Partial hysterctomy Hx Now: No - Nursing Vital Signs Nursing Vital Signs: Initial Vital Signs Temperature 99.3 F 11/04/18 20:47 Pulse Rate 110 H 11/04/18 20:47 Respiratory Rate 18 11/04/18 20:47 Blood Pressure 107/74 11/04/18 20:47 O2 Sat by Pulse Oximetry 97 11/04/18 20:47 Pain Scale Pain Intensity 8 - Physical Exam General Appearance: no apparent distress, alert Eye Exam: PERRL/EOMI, eyes nml inspection Ears, Nose, Throat Exam: normal ENT inspection, TMs normal, pharynx normal, moist mucous membranes Neck Exam: normal inspection, non-tender, supple, full range of motion Respiratory Exam: normal breath sounds, lungs clear, No respiratory distress Cardiovascular Exam: regular rate/rhythm, normal heart sounds, normal peripheral pulses, capillary refill <2 sec Gastrointestinal/Abdomen Exam: soft, normal bowel sounds, No tenderness, No mass Back Exam: normal inspection, normal range of motion, No CVA tenderness, No vertebral tenderness Extremity Exam: normal inspection, normal range of motion, pelvis stable, other (mild tenderness withpalpation left thigh) Skin Exam: other (erythematous skin left groin) SpO2 Interpretation: normal (97%) SpO2: 97 - Course Nursing assessment & vital signs reviewed: Yes Ordered Tests: Active Orders 24 hr Category Date Time Status CBC W DIFF Stat Lab 11/04/18 21:53 Completed CMP Stat Lab 11/04/18 21:53 Completed D-DIMER QUANTITATION Stat Lab 11/04/18 21:53 Completed PROTIME WITH INR Stat Lab 11/04/18 21:53 Completed PTT Stat Lab 11/04/18 21:53 Completed Medication Summary Discontinued Medications Generic Name Dose Route Start Last Admin Trade Name Freq PRN Reason Stop Dose Admin Clotrimazole 30 gm 11/04/18 22:06 Lotrimin Cream 30 Gm TP 11/04/18 22:07 STAT ONE Potassium Chloride 20 meq 11/04/18 22:06 Klor Con 10 Meq PO 11/04/18 22:07 STAT ONE Lab/Rad Data: Laboratory Result Diagrams 11/04/18 21:53 11/04/18 21:53 Laboratory Results 11/04/18 11/04/18 11/04/18 Range/Units 21:53 21:53 21:53 WBC 14.2 H (4.0-10.5) K/mm3 RBC 4.13 (4.1-5.4) M/mm3 Hgb 10.6 L (12.0-16.0) gm/dl Hct 34.9 L (35-47) % MCV 84.5 (78-100) fl MCH 25.6 L (26-32) pg MCHC 30.4 L (32-36) g/dl RDW 17.2 H (11.5-14.0) % Plt Count 241 (150-450) K/mm3 MPV 10.7 H (6-9.5) fl Gran % 66.4 H (36.0-66.0) % Eos # (Auto) 0.48 (0-0.5) Absolute Lymphs (auto) 3.54 (1.0-4.6) Absolute Monos (auto) 0.74 (0.0-1.3) Lymphocytes % 24.9 (24.0-44.0) % Monocytes % 5.2 (0.0-12.0) % Eosinophils % 3.4 (0.00-5.0) % Basophils % 0.1 (0.0-0.4) % Absolute Granulocytes 9.41 H (1.4-6.9) Basophils # 0.02 (0-0.4) PT 12.3 (9.95-12.35) SECONDS INR 1.09 (0.8-3.0) APTT 40.7 H (25.3-37.0) SECONDS D-Dimer 269 (215-500) ng/mL Sodium 140 (137-145) mmol/L Potassium 3.2 L (3.5-5.1) mmol/L Chloride 105 (98-107) mmol/L Carbon Dioxide 30 (22-30) mmol/L Anion Gap 8.9 (5-15) MEQ/L BUN 12 (7-17) mg/dL Creatinine 0.59 (0.52-1.04) mg/dL Estimated GFR > 60.0 ML/MIN Glucose 138 H (74-106) mg/dL Calcium 9.1 (8.4-10.2) mg/dL Total Bilirubin 0.30 (0.2-1.3) mg/dL AST 15 (14-36) U/L ALT 18 (0-35) U/L Alkaline Phosphatase 92 (38-126) U/L Serum Total Protein 6.4 (6.3-8.2) g/dL Albumin 3.6 (3.5-5.0) g/dL - Progress Progress: improved Progress Note: 11/04/18 21:59 Patient's d-dimer within normal limits. 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 Patient did have a potassium of 3.2 will give patient potassium 20 mEq orally. Patient also with what appears to be candidal dermatitis in her groin will place her on clotrimazole cream to apply to the area twice a day for 7 days. Patient to followup with her family . - Departure Departure Disposition: Home Clinical Impression: Left thigh pain, Candidal dermatitis Condition: Fair Critical Care Time: No Referrals: OMAR BENSON MD [Primary Care Provider] - Additional Instructions: Return home Lotrimin cream to groin area twice a day for 7 days. Continue oxycodone as prescribed by your family doctor as needed for pain. Followup with your family . Return for acute distress or for severe symptoms.
[2018-11-04 21:34] LABS: BASOPHIL % 0.1 % (0.0-0.4); Basophil (Absolute #) 0.02 (0-0.4); Eosinophil % 3.4 % (0.00-5.0); Eosinophil (Absolute #) 0.48 (0-0.5); Granulocyte Absolute (ANC) 9.41 (1.4-6.9); Granulocytes % 66.4 % (36.0-66.0); Hematocrit 34.9 % (35-47); Hemoglobin 10.6 gm/dl (12.0-16.0); Lymphocyte (Absolute #) 3.54 (1.0-4.6); Lymphocytes % 24.9 % (24.0-44.0); Mean Cell Volume 84.5 fl (78-100); Mean Corpuscular Hgb Concent. 30.4 g/dl (32-36); Mean Platelet Volume 10.7 fl (6-9.5); Monocyte (Absolute #) 0.74 (0.0-1.3); Monocytes % 5.2 % (0.0-12.0); Platelet Count 241 K/mm3 (150-450); Red Blood Count 4.13 M/mm3 (4.1-5.4); Red Cell Distribution Width 17.2 % (11.5-14.0); White Blood Count 14.2 K/mm3 (4.0-10.5)
[2018-11-04 21:45] VITALS: BP 116/68; PULSE 105
[2018-11-04 21:47] LABS: INR 1.09 (0.8-3.0); PROTIME 12.3 SECONDS (9.95-12.35)
[2018-11-04 21:50] LABS: PTT 40.7 SECONDS (25.3-37.0)
[2018-11-04 21:51] LABS: ALBUMIN 3.6 g/dL (3.5-5.0); ALKALINE PHOSPHATASE 92 U/L (38-126); ANION GAP 8.9 MEQ/L (5-15); BLOOD UREA NITROGEN 12 mg/dL (7-17); CHLORIDE 105 mmol/L (98-107); Calcium 9.1 mg/dL (8.4-10.2); Carbon Dioxide 30 mmol/L (22-30); Creatinine 1 0.59 mg/dL (0.52-1.04); Glucose 138 mg/dL (74-106); Potassium 3.2 mmol/L (3.5-5.1); SGOT/AST 15 U/L (14-36); SGPT/ALT 18 U/L (0-35); SODIUM 140 mmol/L (137-145); Total Protein 6.4 g/dL (6.3-8.2)
[2018-11-04 21:55] LABS: Mean Corpuscular Hemoglobin 25.6 pg (26-32)
[2018-11-04] MEDS ORDERED: LOTRIMIN CREAM 30 GM TP ONE (22:06)
[2018-11-04] MEDS ORDERED: Klor Con 10 MEQ PO ONE ×2 (22:06→22:13)
== END 2018-11-04 22:29 | disposition home or self-care (01) ==
LOC: ED 20:41
DX: M79.652 Pain in left thigh (principal); B37.2 Candidiasis of skin and nail
CPT/HCPCS: 36415; 80053; 85025; 85379; 85610; 85730; 99283; A9270-GY

== ENCOUNTER 2019-02-27 18:24 | Emergency (ER) | payer MEDICARE ==
[2019-02-27 18:59] VITALS: BP 114/68; PULSE 95; O2SAT 95
--- NOTE | 2019-02-27 19:25 | ERPHSYRPT ---
- History of Present Illness Time Seen by Provider: 02/27/19 19:12 Source: patient Exam Limitations: no limitations Patient Subjective Stated Complaint: Right heel and lower leg pain Triage Nursing Assessment: Patient brought back to ED via w/c and transferred self to bed. Patient A+O X 3. Patient's skin pink, warm and dry. Patient complains of right lower leg and heel pain after stepping down steps yesterday and felt a "pop" and a sharp pain in the middle of heel that caused pain that went up to her right knee. Patient's right heel noted to be warm, red and swollen with sharp intermitent pain when walking. Physician History: 53-year-old female endorses a remote right activities tendon injury during a physical therapy session 5 months ago has been doing well. Yesterday was stepping down a step when she had sudden onset of pain like a bubble popping" in the back of her right ankle area since that time she is constant moderate pain that is worse with walking and better with rest and elevation. She tried one dose of ibuprofen yesterday with mild relief none since. No fevers nausea vomiting. No knee pain. A focal numbness or weakness. Endorses swelling and warmth of the back of the right Achilles as well. PMH: Patient versus a history of diabetes Social: Patient denies tobacco Allergies/Adverse Reactions: famotidine [From Pepcid] Allergy (Severe, Verified 02/27/19 18:49) Vomiting insulin lispro [From Humalog] Allergy (Severe, Verified 02/27/19 18:49) Anaphylactic Reaction lidocaine Allergy (Severe, Verified 02/27/19 18:49) Anaphylactic Reaction pt states all "edgar" potassium chloride Allergy (Severe, Verified 02/27/19 18:49) Swelling of Tongue and Lips liquid potassium caused tongue swelling. pt takes tablets without issue sumatriptan [From Imitrex] Allergy (Severe, Verified 02/27/19 18:49) Anaphylactic Reaction sumatriptan succinate [From Imitrex] Allergy (Severe, Verified 02/27/19 18:49) Anaphylactic Reaction zolpidem [From Ambien] Allergy (Verified 02/27/19 18:49) Home Medications: Albuterol Sulfate [Proair Respiclick] 90 mcg IH QID 11/04/18 [History] Alirocumab [Praluent Pen] 75 mg SQ UD 11/04/18 [History] Ascorbic Acid 500 mg [Vitamin C 500 MG] 500 mg PO DAILY 11/04/18 [History] Aspirin EC 81 mg [Ecotrin 81 mg] 81 mg PO DAILY 11/04/18 [History] Calcium Citrate [Calcitrate] 200 mg PO TID 11/04/18 [History] Carvedilol 3.125 mg [Coreg 3.125 MG] 3.125 mg PO BID 11/04/18 [History] Clobetasol Propionate/Emoll [Clobetasol Emollient 0.05% Crm] 15 gm TP 2XW [History] Cyanocobalamin (Vitamin B-12) [Vitamin B-12] 500 mcg PO DAILY 11/04/18 [History] Doxepin HCl 100 mg PO HS 11/04/18 [History] Duloxetine HCl 30 mg [Cymbalta 30 MG Capsule] 60 mg PO DAILY 11/04/18 [ History] Ergocalciferol (Vitamin D2) [Drisdol] 50,000 unit PO WEEKLY 11/04/18 [History] Esomeprazole Magnesium [Nexium] 40 mg PO DAILY 11/04/18 [History] Furosemide 20 mg [Lasix 20 mg] 20 mg PO BID 11/04/18 [History] Gabapentin Enacarbil [Horizant] 600 mg PO HS 11/04/18 [History] Glimepiride 4 mg [Amaryl 4 mg] 4 mg PO BID 11/04/18 [History] Glycopyrrolate/Formoterol Fum [Bevespi Aerosphere Inhaler] 9 mcg IH BID [History] Haloperidol 5 mg [Haldol 5 MG] 5 mg PO TID 11/04/18 [History] Icosapent Ethyl [Vascepa] 1 gm PO BID 11/04/18 [History] Insulin Aspart Prot/Insuln Asp [Novolog Mix 70-30 Flexpen Syrn] 25 unit SQ TID 11/04/18 [History] Insulin Glargine,Hum.rec.anlog [Lantus Solostar] 80 unit SQ BID 11/04/18 [ History] Ipratropium/Albuterol Sulfate [Combivent Inhaler] 14.7 gm IH QID 11/04/18 [ History] Ipratropium/Albuterol Sulfate [Iprat-Albut 0.5-3(2.5) mg/3 ml] 3 ml IH Q6H 11/04 [History] Levothyroxine Sodium 75 Mcg [Synthroid 75 Mcg] 75 mcg PO DAILY 11/04/18 [ History] Lipase/Protease/Amylase [Armando Zuleta 24,000 Units Capsule] 2 each PO QID 11/04/18 [ History] Loxapine Succinate [Loxapine] 10 mg PO BID 11/04/18 [History] Metoclopramide HCl 5 mg PO HS 11/04/18 [History] Montelukast Sodium 10 mg [Singulair 10 MG] 10 mg PO DAILY 11/04/18 [History] Multivit-Min/Iron/Folic/Lutein [Centrum Silver Women Tablet] 1 each PO DAILY 06/20 [History] Mupirocin [Bactroban OINTMENT] 22 gm TP TID 11/04/18 [History] Nystatin 4 ml PO QID 11/04/18 [History] Oxycodone HCl/Acetaminophen [Percocet 5-325 mg Tablet] 1 each PO TID 11/04/18 [ History] Pioglitazone 30 mg [Actos 30 MG] 30 mg PO DAILY 11/04/18 [History] Polyethylene Glycol 3350 17 gm [Miralax Powder 17GM PACKET] 17 gm PO DAILY [History] Potassium Chloride 10 Meq Tab* [Klor Con 10 MEQ] 10 meq PO TID 11/04/18 [ History] Promethazine HCl 12.5 mg PO DAILY 11/04/18 [History] Rivaroxaban 10 mg Tablet [Xarelto 10 mg Tablet] 10 mg PO DAILY 11/04/18 [ History] Topiramate 100 mg PO BID 11/04/18 [History] raNITIdine HCl [Zantac] 300 mg PO DAILY 11/04/18 [History] Hx Tetanus, Diphtheria Vaccination/Date Given: Yes Hx Influenza Vaccination/Date Given: Yes Hx Pneumococcal Vaccination/Date Given: No Immunizations Up to Date: Yes - Review of Systems Constitutional: No Fever, No Chills Eyes: No Symptoms Ears, Nose, & Throat: No Symptoms Respiratory: No Cough, No Dyspnea Cardiac: No Chest Pain, No Edema, No Syncope Abdominal/Gastrointestinal: No Abdominal Pain, No Nausea, No Vomiting, No Diarrhea Genitourinary Symptoms: No Dysuria Musculoskeletal: Other (historian endorses right posterior ankle pain), No Back Pain, No Neck Pain Skin: No Rash Neurological: No Dizziness, No Focal Weakness, No Sensory Changes Psychological: No Symptoms Endocrine: No Symptoms All Other Systems: Reviewed and Negative - Past Medical History Pertinent Past Medical History: Yes Neurological History: Migraines, Peripheral Neuropathy ENT History: Other Cardiac History: Other Respiratory History: Other Endocrine Medical History: Diabetes Type II, Hypothyroidism, Other Musculoskeletal History: Osteoarthritis GI Medical History: Diverticulosis, GERD, Gallbladder Disease History: No Pertinent History Psycho-Social History: Anxiety, Bipolar, Depression, Other Female Reproductive Disorders: Fibroids Other Medical History: Diabetic neuropathy in B hands and feet. Psoratic OA. Liver polyps, Pt sleeps with 2L O2. Blockages in heart valves that are not severe enough to do surgery. PE blood clots, schizophrenia - Past Surgical History Past Surgical History: Yes Neuro Surgical History: No Pertinent History Cardiac: No Pertinent History Respiratory: No Pertinent History Gastrointestinal: Cholecystectomy Genitourinary: No Pertinent History Musculoskeletal: Other Female Surgical History: Hysterectomy, Section Other Surgical History: surgery right foot pins/toes,right knee "rebuilt"-screw in place, fareed hands neuro/nerve surgeries,right wrist x two cyst removed and bone reconstruction,left wrist also,right eye-[place] removed ?, x two, back surgery - Social History Smoking Status: Never smoker How long have you smoked: 12 Exposure to second hand smoke: Yes Drug Use: none Patient Lives Alone: No - Female History Hx Last Menstrual Period: hysterecomy Hx Now: No - Nursing Vital Signs Nursing Vital Signs: Initial Vital Signs Temperature 97.9 F 02/27/19 18:50 Pulse Rate 95 H 02/27/19 18:50 Respiratory Rate 18 02/27/19 18:50 Blood Pressure 114/68 02/27/19 18:50 O2 Sat by Pulse Oximetry 95 02/27/19 18:50 Pain Scale Pain Intensity 8 - Physical Exam General Appearance: no apparent distress, alert Eye Exam: PERRL/EOMI, eyes nml inspection Ears, Nose, Throat Exam: normal ENT inspection, TMs normal, pharynx normal, moist mucous membranes Neck Exam: normal inspection, non-tender, supple, full range of motion Respiratory Exam: normal breath sounds, lungs clear, No respiratory distress Cardiovascular Exam: regular rate/rhythm, normal heart sounds, normal peripheral pulses Gastrointestinal/Abdomen Exam: soft, normal bowel sounds, No tenderness, No mass Back Exam: normal inspection, normal range of motion, No CVA tenderness, No vertebral tenderness Extremity Exam: normal inspection, normal range of motion, pelvis stable, other (over the entire right acuities is a large warm soft fluid collection without fluctuance induration or erythema in her Jain's test is weak but intact compared to the other side) Neurologic Exam: alert, oriented x 3, cooperative, normal mood/affect, nml cerebellar function, nml station & gait, sensation nml, No motor deficits Skin Exam: normal color, warm, dry, No rash Lymphatic Exam: No adenopathy SpO2 Interpretation: normal SpO2: 95 O2 Delivery: Room Air - Progress Progress: unchanged Progress Note: patient clearly has an acute achilles tendinopathy. No evidence of saline this or infected joint. Patient appears well overall and is appropriate for discharge with rest, ice, scheduled NSAID therapy instructions and orthopedic followup which she states she can do tomorrow morning. The Achilles is intact though extensive precautions have been provided in regards to have ambulate without increasing her risk of completely ruptured the tendon. 02/27/19 19:27 - Departure Departure Disposition: Home Clinical Impression: Achilles tendinitis Qualifiers: Laterality: right Qualified Code(s): M76.61 - Achilles tendinitis, right leg Clinical Impression: (Ruled Out): Achilles rupture, right Condition: Good Critical Care Time: No Referrals: OMAR BENSON MD [Primary Care Provider] - Instructions: Achilles Tendinopathy Additional Instructions: Follow up with orthopedics from the resources provided. Take her ibuprofen as instructed 3 times daily for the next 3-5 days. Return here for new or concerning symptoms. Prescriptions: Ibuprofen 600 mg PO TID 10 Days #30 tablet
== END 2019-02-27 19:33 | disposition home or self-care (01) ==
LOC: ED 18:24
DX: M76.61 Achilles tendinitis, right leg (principal); M79.661 Pain in right lower leg; M79.671 Pain in right foot; Z79.899 Other long term (current) drug therapy; Z79.891 Long term (current) use of opiate analgesic; E11.9 Type 2 diabetes mellitus without complications; E03.9 Hypothyroidism, unspecified
CPT/HCPCS: 99283

== ENCOUNTER 2019-03-24 15:14 | Emergency (ER) | payer MEDICARE ==
[2019-03-24] MEDS ORDERED: EPINEPHRINE 1MG/ML AMP ONE (15:31)
[2019-03-24] MEDS ORDERED: BENADRYL 50 MG/ML ONE (15:32)
[2019-03-24] MEDS ORDERED: XYLOCAINE 1%/Epi 1:100000 MDV 20 ML ONE (15:33)
[2019-03-24] MEDS ORDERED: BENADRYL 50 MG/ML IM ONE (15:40)
[2019-03-24] MEDS ORDERED: XYLOCAINE 1%/Epi 1:100000 MDV 20 ML IJ ONE (15:41)
[2019-03-24] MEDS ORDERED: EPINEPHRINE 1MG/ML AMP IM ONE (15:42)
--- NOTE | 2019-03-24 15:47 | ERPHSYRPT ---
- History of Present Illness Time Seen by Provider: 03/24/19 15:16 Source: patient, family Exam Limitations: no limitations Patient Subjective Stated Complaint: Pt's Jemima Niraj attacked her 5 lb dog and she went to check out the little dog when the Great Niraj bit her several times to the right hand pointing finger and thumb, pt went to Dr. Benson yesterday and was given Amoxicillin and a triple antibiotic was placed on it, today her fingers hurt more and her hand is swelling Triage Nursing Assessment: Pt walked into the ER, vitals wnl, 9 puncture gonzalez on the right thumb, 6 puncture gonzalez to the right pointing finger, fingers are swollen, red, and bruised with puss coming out of some punctures, pt rates pain 10/11 Physician History: Patient is here with dog bite and injury. Patient states 4 days ago she was bite by her dog. She has had continued pain and swelling at the site of the bite since then. Yesterday, she saw here PCP, Dr. Benson. He prescribed her amoxicillin. She states she has taken all doses of this. Today, she returns with continued pain and draining from the wounds. Patient states it is her dog and he is uptodate on vaccinations. Location: right first and second finger radiation: none type: sharp frequency: constant duration: 4 days modifying symptoms: already on amoxicillin Allergies/Adverse Reactions: famotidine [From Pepcid] Allergy (Severe, Verified 03/24/19 15:34) Vomiting insulin lispro [From Humalog] Allergy (Severe, Verified 03/24/19 15:34) Anaphylactic Reaction lidocaine Allergy (Severe, Verified 03/24/19 15:34) Anaphylactic Reaction pt states all "edgar" potassium chloride Allergy (Severe, Verified 03/24/19 15:34) Swelling of Tongue and Lips liquid potassium caused tongue swelling. pt takes tablets without issue sumatriptan [From Imitrex] Allergy (Severe, Verified 03/24/19 15:34) Anaphylactic Reaction sumatriptan succinate [From Imitrex] Allergy (Severe, Verified 03/24/19 15:34) Anaphylactic Reaction zolpidem [From Ambien] Allergy (Verified 03/24/19 15:34) Home Medications: Albuterol Sulfate [Proair Respiclick] 90 mcg IH QID 11/04/18 [History] Alirocumab [Praluent Pen] 75 mg SQ UD 11/04/18 [History] Ascorbic Acid 500 mg [Vitamin C 500 MG] 500 mg PO DAILY 11/04/18 [History] Aspirin EC 81 mg [Ecotrin 81 mg] 81 mg PO DAILY 11/04/18 [History] Calcium Citrate [Calcitrate] 200 mg PO TID 11/04/18 [History] Carvedilol 3.125 mg [Coreg 3.125 MG] 3.125 mg PO BID 11/04/18 [History] Clobetasol Propionate/Emoll [Clobetasol Emollient 0.05% Crm] 15 gm TP 2XW [History] Cyanocobalamin (Vitamin B-12) [Vitamin B-12] 500 mcg PO DAILY 11/04/18 [History] Doxepin HCl 100 mg PO HS 11/04/18 [History] Duloxetine HCl 30 mg [Cymbalta 30 MG Capsule] 60 mg PO DAILY 11/04/18 [ History] Ergocalciferol (Vitamin D2) [Drisdol] 50,000 unit PO WEEKLY 11/04/18 [History] Esomeprazole Magnesium [Nexium] 40 mg PO DAILY 11/04/18 [History] Furosemide 20 mg [Lasix 20 mg] 20 mg PO BID 11/04/18 [History] Gabapentin Enacarbil [Horizant] 600 mg PO HS 11/04/18 [History] Glimepiride 4 mg [Amaryl 4 mg] 4 mg PO BID 11/04/18 [History] Glycopyrrolate/Formoterol Fum [Bevespi Aerosphere Inhaler] 9 mcg IH BID [History] Haloperidol 5 mg [Haldol 5 MG] 5 mg PO TID 11/04/18 [History] Icosapent Ethyl [Vascepa] 1 gm PO BID 11/04/18 [History] Insulin Aspart Prot/Insuln Asp [Novolog Mix 70-30 Flexpen Syrn] 25 unit SQ TID 11/04/18 [History] Insulin Glargine,Hum.rec.anlog [Lantus Solostar] 80 unit SQ BID 11/04/18 [ History] Ipratropium/Albuterol Sulfate [Combivent Inhaler] 14.7 gm IH QID 11/04/18 [ History] Ipratropium/Albuterol Sulfate [Iprat-Albut 0.5-3(2.5) mg/3 ml] 3 ml IH Q6H 11/04 [History] Levothyroxine Sodium 75 Mcg [Synthroid 75 Mcg] 75 mcg PO DAILY 11/04/18 [ History] Lipase/Protease/Amylase [Creon Dr 24,000 Units Capsule] 2 each PO QID 11/04/18 [ History] Loxapine Succinate [Loxapine] 10 mg PO BID 11/04/18 [History] Metoclopramide HCl 5 mg PO HS 11/04/18 [History] Montelukast Sodium 10 mg [Singulair 10 MG] 10 mg PO DAILY 11/04/18 [History] Multivit-Min/Iron/Folic/Lutein [Centrum Silver Women Tablet] 1 each PO DAILY 06/20 [History] Mupirocin [Bactroban OINTMENT] 22 gm TP TID 11/04/18 [History] Nystatin 4 ml PO QID 11/04/18 [History] Oxycodone HCl/Acetaminophen [Percocet 5-325 mg Tablet] 1 each PO TID 11/04/18 [ History] Pioglitazone 30 mg [Actos 30 MG] 30 mg PO DAILY 11/04/18 [History] Polyethylene Glycol 3350 17 gm [Miralax Powder 17GM PACKET] 17 gm PO DAILY [History] Potassium Chloride 10 Meq Tab* [Klor Con 10 MEQ] 10 meq PO TID 11/04/18 [ History] Promethazine HCl 12.5 mg PO DAILY 11/04/18 [History] Rivaroxaban 10 mg Tablet [Xarelto 10 mg Tablet] 10 mg PO DAILY 11/04/18 [ History] Topiramate 100 mg PO BID 11/04/18 [History] raNITIdine HCl [Zantac] 300 mg PO DAILY 11/04/18 [History] Hx Tetanus, Diphtheria Vaccination/Date Given: Yes (2015) Hx Influenza Vaccination/Date Given: Yes Hx Pneumococcal Vaccination/Date Given: No - Review of Systems Constitutional: No Fever, No Chills Eyes: No Symptoms Ears, Nose, & Throat: No Symptoms Respiratory: No Cough, No Dyspnea Cardiac: No Chest Pain, No Edema, No Syncope Abdominal/Gastrointestinal: No Abdominal Pain, No Nausea, No Vomiting, No Diarrhea Genitourinary Symptoms: No Dysuria Musculoskeletal: Other (right finger injury ), No Back Pain, No Neck Pain Skin: No Rash Neurological: No Dizziness, No Focal Weakness, No Sensory Changes Psychological: No Symptoms Endocrine: No Symptoms All Other Systems: Reviewed and Negative - Past Medical History Pertinent Past Medical History: Yes Neurological History: Migraines, Peripheral Neuropathy ENT History: Other Cardiac History: Arrhythmia, High Cholesterol Respiratory History: Pneumonia Endocrine Medical History: Diabetes Type II, Hypothyroidism Musculoskeletal History: Osteoarthritis, Other GI Medical History: Diverticulosis, GERD, Gallbladder Disease History: No Pertinent History Psycho-Social History: Anxiety, Bipolar, Depression, Other Female Reproductive Disorders: Fibroids Other Medical History: PMHX: SCHIZOPHRENIA, BIPOLAR DISORDER, ASSOCIATIVE PERSONALITY DISORDER, ANXIETY, GERD DIVERTICULOSIS, AUTOIMMUNE PANCREATITIS, TACHYCARDIA, STEATOSIS OF LIVER. SX HX: HAD EXTRA TOE REMOVED RIGHT FOOT, KNEE RECONSTRUCTION FOR "BUSTED" UP LIGAMENT WITH PATELLA GOING TO THE SIDE AT AGE 15 , FX RIGHT WRIST WITH PATIENT STATING SHE HAD SURGERY X 2 BUT DENIES HARDWARE AND HAD CYST REMOVAL RIGHT AND LEFT WRIST. CHOLECYSTECTOMY, HYSTERECTOMY, BACK SURGERY - HAS PAIN STIMULATOR. - Past Surgical History Past Surgical History: Yes Neuro Surgical History: No Pertinent History Cardiac: No Pertinent History Respiratory: No Pertinent History Gastrointestinal: Cholecystectomy Genitourinary: No Pertinent History Musculoskeletal: Other Female Surgical History: Hysterectomy, Section Other Surgical History: surgery right foot pins/toes,right knee "rebuilt"-screw in place, fareed hands neuro/nerve surgeries,right wrist x two cyst removed and bone reconstruction,left wrist also,right eye-[place] removed ?, x two, back surgery - Social History Smoking Status: Former smoker How long have you smoked: 12 Exposure to second hand smoke: Yes Drug Use: none Patient Lives Alone: No - Female History Hx Now: No - Nursing Vital Signs Nursing Vital Signs: Initial Vital Signs Temperature 98.3 F 03/24/19 15:19 Pulse Rate 94 H 03/24/19 15:19 Blood Pressure 117/79 1221/19 15:19 O2 Sat by Pulse Oximetry 97 03/24/19 15:19 Pain Scale Pain Intensity 7 - Physical Exam General Appearance: alert Eyes, Ears, Nose, Throat Exam: moist mucous membranes Neck Exam: non-tender, supple Cardiovascular/Respiratory Exam: chest non-tender, normal breath sounds, regular rate/rhythm, no respiratory distress Abdominal Exam: non-tender, No guarding Back Exam: normal inspection, No vertebral tenderness Hand Exam: abrasions (Patient has multiple abrasions without lacerations of her 1st and 2nd finger. She has full range of motion. kanavel signs- negative. There is local wound swelling and active draining of flucent abscess. But, it does not extend deeper then superficially. Good cap refill, neurovascuallry intact) Neuro/Tendon Exam: normal sensation, normal motor functions Mental Status Exam: alert, oriented x 3, cooperative Skin Exam: normal color, warm, dry SpO2: 97 Procedures - Incision and Drainage Anesthesia: 1% lidocaine w/epi cc's of anesthesia: 3 Blade Size: scalpel I & D Procedure: betadine prep Results: small amount pus Progress: small amount of pus drained from 2 locations on index finger. - Radiology Exams Hand X-ray Interpretation: Interpreted by me, No Fracture Ordered Tests: Active Orders 24 hr Category Date Time Status FINGER(S) Stat Exams 03/24/19 Ordered Medication Summary Discontinued Medications Generic Name Dose Route Start Last Admin Trade Name Justin PRN Reason Stop Dose Admin Diphenhydramine HCl Confirm 03/24/19 15:32 Benadryl 50 Mg/Ml Administered 03/24/19 15:33 Dose 50 mg .ROUTE .STK-MED ONE Epinephrine HCl Confirm 03/24/19 15:31 Epinephrine 1mg/Ml Amp Administered 03/24/19 15:32 Dose 1 mg .ROUTE .STK-MED ONE Lidocaine/Epinephrine Confirm 03/24/19 15:33 Xylocaine 1%/Epi [id number] Mdv 20 Ml Administered 03/24/19 15:34 Dose 1 ml .ROUTE .STK-MED ONE - Progress Progress: unchanged Progress Note: 03/24/19 15:50 Patient does appear to have draining abscess on finger. Given this, we will open the wound more to help with evacuation of infection. See procedure note for full details. We will change patient to augmentin for better dog bite coverage. Patient will absolutely need 48 hour ortho follow up for revisiting exam on kanavel signs. The patient should return here for new or changing symptoms sooner, if she is not improving tonight or tomorrow on different antibiotics. Otherwise, she will follow up with ortho as described. - Departure Departure Disposition: Home Clinical Impression: Dog bite, Abscess Condition: Stable Critical Care Time: No Referrals: OMAR BENSON MD [Primary Care Provider] - Additional Instructions: See in ortho follow up clinic for reexam in 48 hours at 8 am on 03/26/19. Return here for new or changing symptoms. Prescriptions: Amox Tr/Potass Clav. 875 mg [Augmentin 875-125 Tablet] 875 mg PO BID 10 Days #20 tablet
[2019-03-24 16:21] VITALS: BP 107/49; PULSE 89
[2019-03-24 16:26] VITALS: O2SAT 97
--- NOTE | 2019-03-24 20:45 | XRAY ---
Indication: Dog bite. Comparison: None 3 views of the right 2nd finger demonstrates tiny posterior laceration. No other bony, articular, or soft tissue abnormalities. Comment: Preliminary interpretation was made by [facility]. No discrepancy.
== END 2019-03-24 16:39 | disposition home or self-care (01) ==
LOC: ED 15:14
DX: S61.250A Open bite of right index finger without damage to nail, initial encounter (principal); S61.051A Open bite of right thumb without damage to nail, initial encounter; W54.0XXA Bitten by dog, initial encounter; L02.511 Cutaneous abscess of right hand
CPT/HCPCS: 73140; 96372; 99284; J0171; J1200

== ENCOUNTER 2019-07-25 14:56 | Emergency (ER) | payer MEDICARE ==
--- NOTE | 2019-07-25 15:27 | ERPHSYRPT ---
- History of Present Illness Time Seen by Provider: 07/25/19 15:20 Source: patient Physician History: 54 years old female with history of diabetes mellitus, pulmonary embolism on Xarelto, hypertension, hyperlipidemia, anxiety, depression presented in the ER with chief complaint of gradually worsening lower extremity swelling for almost 1 week. Swelling is bilaterally and lower legs associated with dull aching pain without any significant aggravating or relieving factors. She has been taking diuretics recommended by her doctor with no significant relief. Patient denies any chest pain palpitations. She has shortness of breath or her baseline which is not any worse than usual. Denies any fever or chills. No sick contact. Patient is sent in here by her primary care. Patient reports she has been taking Xarelto regularly. Timing/Duration: week(s) (1), gradual onset, worse Severity: moderate Associated Symptoms: No nausea, No vomiting, No abdominal pain, No cough, No chills, No chest pain Allergies/Adverse Reactions: famotidine [From Pepcid] Allergy (Severe, Verified 07/25/19 15:23) Vomiting insulin lispro [From Humalog] Allergy (Severe, Verified 07/25/19 15:23) Anaphylactic Reaction lidocaine Allergy (Severe, Verified 07/25/19 15:23) Anaphylactic Reaction pt states all "edgar" potassium chloride Allergy (Severe, Verified 07/25/19 15:23) Swelling of Tongue and Lips liquid potassium caused tongue swelling. pt takes tablets without issue sumatriptan [From Imitrex] Allergy (Severe, Verified 07/25/19 15:23) Anaphylactic Reaction sumatriptan succinate [From Imitrex] Allergy (Severe, Verified 07/25/19 15:23) Anaphylactic Reaction zolpidem [From Ambien] Allergy (Verified 07/25/19 15:23) Home Medications: Albuterol Sulfate [Proair Respiclick] 90 mcg IH QID 11/04/18 [History] Alirocumab [Praluent Pen] 75 mg SQ UD 11/04/18 [History] Ascorbic Acid 500 mg [Vitamin C 500 MG] 500 mg PO DAILY 11/04/18 [History] Aspirin EC 81 mg [Ecotrin 81 mg] 81 mg PO DAILY 11/04/18 [History] Calcium Citrate [Calcitrate] 200 mg PO TID 11/04/18 [History] Carvedilol 3.125 mg [Coreg 3.125 MG] 3.125 mg PO BID 11/04/18 [History] Clobetasol Propionate/Emoll [Clobetasol Emollient 0.05% Crm] 15 gm TP 2XW [History] Cyanocobalamin (Vitamin B-12) [Vitamin B-12] 500 mcg PO DAILY 11/04/18 [History] Doxepin HCl 100 mg PO HS 11/04/18 [History] Duloxetine HCl 30 mg [Cymbalta 30 MG Capsule] 60 mg PO DAILY 11/04/18 [ History] Ergocalciferol (Vitamin D2) [Drisdol] 50,000 unit PO WEEKLY 11/04/18 [History] Esomeprazole Magnesium [Nexium] 40 mg PO DAILY 11/04/18 [History] Furosemide 20 mg [Lasix 20 mg] 20 mg PO BID 11/04/18 [History] Gabapentin Enacarbil [Horizant] 600 mg PO HS 11/04/18 [History] Glimepiride 4 mg [Amaryl 4 mg] 4 mg PO BID 11/04/18 [History] Glycopyrrolate/Formoterol Fum [Bevespi Aerosphere Inhaler] 9 mcg IH BID [History] Haloperidol 5 mg [Haldol 5 MG] 5 mg PO TID 11/04/18 [History] Icosapent Ethyl [Vascepa] 1 gm PO BID 11/04/18 [History] Insulin Aspart Prot/Insuln Asp [Novolog Mix 70-30 Flexpen Syrn] 25 unit SQ TID 11/04/18 [History] Insulin Glargine,Hum.rec.anlog [Lantus Solostar] 80 unit SQ BID 11/04/18 [ History] Ipratropium/Albuterol Sulfate [Combivent Inhaler] 14.7 gm IH QID 11/04/18 [ History] Ipratropium/Albuterol Sulfate [Iprat-Albut 0.5-3(2.5) mg/3 ml] 3 ml IH Q6H 11/04 [History] Levothyroxine Sodium 75 Mcg [Synthroid 75 Mcg] 75 mcg PO DAILY 11/04/18 [ History] Lipase/Protease/Amylase [Armando Dr 24,000 Units Capsule] 2 each PO QID 11/04/18 [ History] Loxapine Succinate [Loxapine] 10 mg PO BID 11/04/18 [History] Metoclopramide HCl 5 mg PO HS 11/04/18 [History] Montelukast Sodium 10 mg [Singulair 10 MG] 10 mg PO DAILY 11/04/18 [History] Multivit-Min/Iron/Folic/Lutein [Centrum Silver Women Tablet] 1 each PO DAILY 06/20 [History] Mupirocin [Bactroban OINTMENT] 22 gm TP TID 11/04/18 [History] Nystatin 4 ml PO QID 11/04/18 [History] Oxycodone HCl/Acetaminophen [Percocet 5-325 mg Tablet] 1 each PO TID 11/04/18 [ History] Pioglitazone 30 mg [Actos 30 MG] 30 mg PO DAILY 11/04/18 [History] Polyethylene Glycol 3350 17 gm [Miralax Powder 17GM PACKET] 17 gm PO DAILY [History] Potassium Chloride 10 Meq Tab* [Klor Con 10 MEQ] 10 meq PO TID 11/04/18 [ History] Promethazine HCl 12.5 mg PO DAILY 11/04/18 [History] Rivaroxaban 10 mg Tablet [Xarelto 10 mg Tablet] 10 mg PO DAILY 11/04/18 [ History] Topiramate 100 mg PO BID 11/04/18 [History] raNITIdine HCl [Zantac] 300 mg PO DAILY 11/04/18 [History] Hx Tetanus, Diphtheria Vaccination/Date Given: Yes (2015) Hx Influenza Vaccination/Date Given: Yes Hx Pneumococcal Vaccination/Date Given: No Travel Risk - International Travel Have you traveled outside of the country in past 3 weeks: No Have you or anyone close to you been diagnosed with or: No Do your reside in a community with a known COVID-19 case?: Yes If Yes where:: [place] - Review of Systems Constitutional: Fatigue Eyes: No Symptoms Ears, Nose, & Throat: No Symptoms Respiratory: Dyspnea Cardiac: No Symptoms Abdominal/Gastrointestinal: No Symptoms Genitourinary Symptoms: No Symptoms Musculoskeletal: No Symptoms Neurological: No Symptoms Psychological: No Symptoms Endocrine: No Symptoms Hematologic/Lymphatic: Blood Clots Immunological/Allergic: No Symptoms - Past Medical History Pertinent Past Medical History: Yes Neurological History: Migraines, Peripheral Neuropathy ENT History: Other Cardiac History: Arrhythmia, High Cholesterol Respiratory History: Pneumonia Endocrine Medical History: Diabetes Type II Musculoskeletal History: Osteoarthritis, Other GI Medical History: Diverticulosis, GERD, Gallbladder Disease History: No Pertinent History Psycho-Social History: Anxiety, Bipolar, Depression, Other Female Reproductive Disorders: Fibroids Other Medical History: PMHX: SCHIZOPHRENIA, BIPOLAR DISORDER, ASSOCIATIVE PERSONALITY DISORDER, ANXIETY, GERD DIVERTICULOSIS, AUTOIMMUNE PANCREATITIS, TACHYCARDIA, STEATOSIS OF LIVER. SX HX: HAD EXTRA TOE REMOVED RIGHT FOOT, KNEE RECONSTRUCTION FOR "BUSTED" UP LIGAMENT WITH PATELLA GOING TO THE SIDE AT AGE 15 , FX RIGHT WRIST WITH PATIENT STATING SHE HAD SURGERY X 2 BUT DENIES HARDWARE AND HAD CYST REMOVAL RIGHT AND LEFT WRIST. CHOLECYSTECTOMY, HYSTERECTOMY, BACK SURGERY - HAS PAIN STIMULATOR. - Past Surgical History Past Surgical History: Yes Neuro Surgical History: No Pertinent History Cardiac: No Pertinent History Respiratory: No Pertinent History Gastrointestinal: Cholecystectomy Genitourinary: No Pertinent History Musculoskeletal: Other Female Surgical History: Hysterectomy, Section Other Surgical History: surgery right foot pins/toes,right knee "rebuilt"-screw in place, fareed hands neuro/nerve surgeries,right wrist x two cyst removed and bone reconstruction,left wrist also,right eye-[place] removed ?, x two, back surgery - Social History Smoking Status: Former smoker How long have you smoked: 12 Exposure to second hand smoke: Yes Drug Use: none Patient Lives Alone: No - Nursing Vital Signs Nursing Vital Signs: Initial Vital Signs Temperature 98.2 F 07/25/19 15:11 Pulse Rate 112 H 07/25/19 15:11 Respiratory Rate 18 07/25/19 15:11 Blood Pressure 152/78 07/25/19 15:11 O2 Sat by Pulse Oximetry 97 07/25/19 15:11 Pain Scale Pain Intensity 6 - Physical Exam General Appearance: no apparent distress Eye Exam: PERRL/EOMI Ears, Nose, Throat Exam: normal ENT inspection, TMs normal, pharynx normal Neck Exam: normal inspection, non-tender, supple, full range of motion Respiratory Exam: normal breath sounds, lungs clear Cardiovascular Exam: regular rate/rhythm, normal heart sounds, normal peripheral pulses Gastrointestinal/Abdomen Exam: soft, normal bowel sounds, No tenderness Back Exam: normal inspection Extremity Exam: pedal edema, swelling (1+ pitting edema bilateral lower extremities. No redness or signs of cellulitis. Nontender to touch. Normal temperature.), other Neurologic Exam: alert, oriented x 3, cooperative, design technology professor II-XII nml as tested Skin Exam: normal color SpO2 Interpretation: normal O2 Delivery: Room Air - Course Nursing assessment & vital signs reviewed: Yes Ordered Tests: Active Orders 24 hr Category Date Time Status IV Insertion STAT Care 07/25/19 15:27 Active CHEST 1 VIEW (PORTABLE) Stat Exams 07/25/19 15:28 Completed CBC W DIFF Stat Lab 07/25/19 15:50 Completed CMP Stat Lab 07/25/19 15:50 Completed MAGNESIUM Stat Lab 07/25/19 15:50 Completed NT PRO BNP Stat Lab 07/25/19 15:50 Completed TROPONIN Q3H Lab 07/25/19 15:50 Completed TROPONIN Q3H Lab 07/25/19 18:30 Ordered TROPONIN Q3H Lab 07/25/19 21:30 Ordered TROPONIN Q3H Lab 07/26/19 00:30 Ordered TROPONIN Q3H Lab 07/26/19 03:30 Ordered Medication Summary Discontinued Medications Generic Name Dose Route Start Last Admin Trade Name Freq PRN Reason Stop Dose Admin Furosemide 40 mg 07/25/19 15:28 07/25/19 15:53 Lasix 40 Mg/4 Ml IV 07/25/19 15:29 40 mg STAT ONE Administration Furosemide Confirm 07/25/19 15:51 Lasix 40 Mg/4 Ml Administered 07/25/19 15:52 Dose 40 mg .ROUTE .STK-MED ONE Lab/Rad Data: Laboratory Result Diagrams 07/25/19 15:50 07/25/19 15:50 Laboratory Results 07/25/19 07/25/19 07/25/19 Range/Units 15:50 15:50 15:50 WBC 9.7 (4.0-10.5) K/mm3 RBC 4.24 (4.1-5.4) M/mm3 Hgb 9.5 L (12.0-16.0) gm/dl Hct 33.8 L (35-47) % MCV 79.7 (78-100) fl MCH 22.4 L (26-32) pg MCHC 28.1 L (32-36) g/dl RDW 18.3 H (11.5-14.0) % Plt Count 236 (150-450) K/mm3 MPV 11.5 H (7.5-11.0) fl Gran % 55.1 (36.0-66.0) % Eos # (Auto) 0.33 (0-0.5) Absolute Lymphs (auto) 3.26 (1.0-4.6) Absolute Monos (auto) 0.75 (0.0-1.3) Lymphocytes % 33.6 (24.0-44.0) % Monocytes % 7.7 (0.0-12.0) % Eosinophils % 3.4 (0.00-5.0) % Basophils % 0.2 (0.0-0.4) % Absolute Granulocytes 5.34 (1.4-6.9) Basophils # 0.02 (0-0.4) Sodium 140 (137-145) mmol/L Potassium 3.6 (3.5-5.1) mmol/L Chloride 104 (98-107) mmol/L Carbon Dioxide 31 H (22-30) mmol/L Anion Gap 8.7 (5-15) MEQ/L BUN 14 (7-17) mg/dL Creatinine 0.67 (0.52-1.04) mg/dL Estimated GFR > 60.0 ML/MIN Glucose 230 H (74-106) mg/dL Calcium 8.8 (8.4-10.2) mg/dL Magnesium 1.9 (1.6-2.3) mg/dL Total Bilirubin 0.30 (0.2-1.3) mg/dL AST 18 (14-36) U/L ALT 17 (0-35) U/L Alkaline Phosphatase 108 (38-126) U/L Troponin I < 0.012 (0.000-0.034) ng/mL NT-Pro-B Natriuret Pep 39.8 (0-900) pg/mL Serum Total Protein 6.4 (6.3-8.2) g/dL Albumin 3.6 (3.5-5.0) g/dL Slides for Path Review YES - Progress Progress: improved, re-examined Progress Note: 07/25/19 17:45 54 years old is evaluated for bilateral lower extremity increasing swelling. She is given IV Lasix. She is not having any shortness of breath and chest x- ray did not show any consolidation or congestion/CHF exacerbation. Normal troponin. Grossly unremarkable chemistries except her blood sugar which she is on insulin. She is taking Xarelto regularly and is not short of breath at all. I do not think patient needs ultrasound based on the presentation with bilateral lower extremity swelling and pitting edema and also that she is taking Xarelto regularly. I believe patient has some fluid retention, recommended leg elevation and taking extra dose of Lasix for 2 to 3 days and follow-up outpatient with primary care. Also she has normal white count and no signs of cellulitis needing antibiotics. Discussed signs symptoms of worsening needing return to ER which she seems understanding. Counseled pt/family regarding: lab results, diagnosis, need for follow-up, rad results - Departure Departure Disposition: Home Clinical Impression: Bilateral lower extremity edema Condition: Stable Critical Care Time: No Referrals: OMAR BENSON MD [Primary Care Provider] - (1 to 2 days for reevaluation.) Instructions: Dependent Edema (DC), Peripheral Edema -- Bilateral Additional Instructions: Keep legs elevated while sleeping. Take low-salt diet. Take extra dose of your diuretic/water pill for next couple of days. Follow-up with your primary care physician for reevaluation. Return to ER for worsening swelling, redness of the legs or if you develop any increasing shortness of breath from your baseline.
[2019-07-25] MEDS ORDERED: Lasix 40 MG/4 ML ONE (15:51)
--- NOTE | 2019-07-25 15:51 | XRAY ---
Indication: Short of breath and leg swelling. CHF. Comparison: October 28, 2016. Portable chest remains clear again with incidental right apical calcified granuloma. Heart is not enlarged for AP portable technique. Bony thorax intact again with mild degenerative changes. Impression: Continued nonacute chest with chronic features.
[2019-07-25] MEDS: Lasix 40 MG/4 ML IV ONE (15:53)
[2019-07-25 16:04] LABS: Absolute Neutrophil Ct (ANC) 5.34 (1.4-6.9); BASOPHIL % 0.2 % (0.0-0.4); Basophil (Absolute #) 0.02 (0-0.4); Eosinophil % 3.4 % (0.00-5.0); Eosinophil (Absolute #) 0.33 (0-0.5); Hematocrit 33.8 % (35-47); Hemoglobin 9.5 gm/dl (12.0-16.0); Lymphocyte (Absolute #) 3.26 (1.0-4.6); Lymphocytes % 33.6 % (24.0-44.0); Mean Cell Volume 79.7 fl (78-100); Mean Corpuscular Hemoglobin 22.4 pg (26-32); Mean Corpuscular Hgb Concent. 28.1 g/dl (32-36); Mean Platelet Volume 11.5 fl (7.5-11.0); Monocyte (Absolute #) 0.75 (0.0-1.3); Monocytes % 7.7 % (0.0-12.0); Neutrophil % 55.1 % (36.0-66.0); Platelet Count 236 K/mm3 (150-450); Red Blood Count 4.24 M/mm3 (4.1-5.4); Red Cell Distribution Width 18.3 % (11.5-14.0); White Blood Count 9.7 K/mm3 (4.0-10.5)
[2019-07-25 16:22] LABS: ALBUMIN 3.6 g/dL (3.5-5.0); ALKALINE PHOSPHATASE 108 U/L (38-126); ANION GAP 8.7 MEQ/L (5-15); BLOOD UREA NITROGEN 14 mg/dL (7-17); CHLORIDE 104 mmol/L (98-107); Calcium 8.8 mg/dL (8.4-10.2); Carbon Dioxide 31 mmol/L (22-30); Creatinine 1 0.67 mg/dL (0.52-1.04); Glucose 230 mg/dL (74-106); MAGNESIUM 1.9 mg/dL (1.6-2.3); NT PRO BNP 39.8 pg/mL (0-900); Potassium 3.6 mmol/L (3.5-5.1); SGOT/AST 18 U/L (14-36); SGPT/ALT 17 U/L (0-35); SODIUM 140 mmol/L (137-145); Total Protein 6.4 g/dL (6.3-8.2)
[2019-07-25 16:43] VITALS: BP 119/77; PULSE 97; O2SAT 93
[2019-07-25 16:57] LABS: Slide Review 1 YES
== END 2019-07-25 17:56 | disposition home or self-care (01) ==
LOC: ED 14:56
DX: R60.0 Localized edema (principal); E11.9 Type 2 diabetes mellitus without complications; F31.9 Bipolar disorder, unspecified; F41.9 Anxiety disorder, unspecified; F20.9 Schizophrenia, unspecified; Z79.01 Long term (current) use of anticoagulants; Z79.899 Other long term (current) drug therapy; I10 Essential (primary) hypertension; G62.9 Polyneuropathy, unspecified; E78.5 Hyperlipidemia, unspecified; K21.9 Gastro-esophageal reflux disease without esophagitis
CPT/HCPCS: 36000; 36415; 71045; 80053; 83735; 83880; 84484; 85025; 96374; 99284; J1940

== ENCOUNTER 2020-04-10 23:04 | Emergency (ER) | payer MEDICARE ==
--- NOTE | 2020-04-10 23:22 | ERPHSYRPT ---
- History of Present Illness Time Seen by Provider: 04/10/20 23:22 Source: patient Exam Limitations: no limitations Physician History: This is an obese 54-year-old diabetic white female with a history of pulmonary embolism on Xarelto and also has a history of hypertension and elevated cholesterol. In addition she has a history of anxiety and depression. Patient presents with pain in her right knee, right ankle and right foot after falling after slipping at approximately 6 PM prior to this examination. Patient did not injure her head or neck. Patient can bear weight but it hurts to do so. Occurred: this evening Reason for Fall: slipped Injuries/Pain Location: lower extremity (Right knee, ankle and foot) Loss of Consciousness: no loss of consciousness Quality: aching Severity of Pain-Max: moderate Severity of Pain-Current: moderate Modifying Factors: Improves With: movement Associated Symptoms (Fall): extremity injury (Right knee right ankle and right foot) Allergies/Adverse Reactions: famotidine [From Pepcid] Allergy (Severe, Verified 04/10/20 23:36) Vomiting insulin lispro [From Humalog] Allergy (Severe, Verified 04/10/20 23:36) Anaphylactic Reaction lidocaine Allergy (Severe, Verified 04/10/20 23:36) Anaphylactic Reaction pt states all "edgar" potassium chloride Allergy (Severe, Verified 04/10/20 23:36) Swelling of Tongue and Lips liquid potassium caused tongue swelling. pt takes tablets without issue propranolol [From Inderal LA] Allergy (Severe, Verified 04/10/20 23:36) Anaphylactic Reaction sumatriptan [From Imitrex] Allergy (Severe, Verified 04/10/20 23:36) Anaphylactic Reaction sumatriptan succinate [From Imitrex] Allergy (Severe, Verified 04/10/20 23:36) Anaphylactic Reaction zolpidem [From Ambien] Allergy (Verified 04/10/20 23:36) Home Medications: Albuterol Sulfate [Proair Respiclick] 90 mcg IH QID 11/04/18 [History] Alirocumab [Praluent Pen] 75 mg SQ UD 11/04/18 [History] Ascorbic Acid 500 mg [Vitamin C 500 MG] 500 mg PO DAILY 11/04/18 [History] Aspirin EC 81 mg [Ecotrin 81 mg] 81 mg PO DAILY 11/04/18 [History] Calcium Citrate [Calcitrate] 200 mg PO TID 11/04/18 [History] Carvedilol 3.125 mg [Coreg 3.125 MG] 3.125 mg PO BID 11/04/18 [History] Clobetasol Propionate/Emoll [Clobetasol Emollient 0.05% Crm] 15 gm TP 2XW 11/04/18 [History] Cyanocobalamin (Vitamin B-12) [Vitamin B-12] 500 mcg PO DAILY 11/04/18 [History] Doxepin HCl 100 mg PO HS 11/04/18 [History] Duloxetine HCl 30 mg [Cymbalta 30 MG Capsule] 60 mg PO DAILY 11/04/18 [History] Ergocalciferol (Vitamin D2) [Drisdol] 50,000 unit PO WEEKLY 11/04/18 [History] Esomeprazole Magnesium [Nexium] 40 mg PO DAILY 11/04/18 [History] Furosemide 20 mg [Lasix 20 mg] 20 mg PO BID 11/04/18 [History] Gabapentin Enacarbil [Horizant] 600 mg PO HS 11/04/18 [History] Glimepiride 4 mg [Amaryl 4 mg] 4 mg PO BID 11/04/18 [History] Glycopyrrolate/Formoterol Fum [Bevespi Aerosphere Inhaler] 9 mcg IH BID 11/04/18 [History] Haloperidol 5 mg [Haldol 5 MG] 5 mg PO TID 11/04/18 [History] Icosapent Ethyl [Vascepa] 1 gm PO BID 11/04/18 [History] Insulin Aspart Prot/Insuln Asp [Novolog Mix 70-30 Flexpen Syrn] 25 unit SQ TID 11/04/18 [History] Insulin Glargine,Hum.rec.anlog [Lantus Solostar] 80 unit SQ BID 11/04/18 [History] Ipratropium/Albuterol Sulfate [Combivent Inhaler] 14.7 gm IH QID 11/04/18 [History] Ipratropium/Albuterol Sulfate [Iprat-Albut 0.5-3(2.5) mg/3 ml] 3 ml IH Q6H 11/04/18 [History] Levothyroxine Sodium 75 Mcg [Synthroid 75 Mcg] 75 mcg PO DAILY 11/04/18 [History] Lipase/Protease/Amylase [Creon Dr 24,000 Units Capsule] 2 each PO QID 11/04/18 [History] Loxapine Succinate [Loxapine] 10 mg PO BID 11/04/18 [History] Metoclopramide HCl 5 mg PO HS 11/04/18 [History] Montelukast Sodium 10 mg [Singulair 10 MG] 10 mg PO DAILY 11/04/18 [History] Multivit-Min/Iron/Folic/Lutein [Centrum Silver Women Tablet] 1 each PO DAILY 11/04/18 [History] Mupirocin [Bactroban OINTMENT] 22 gm TP TID 11/04/18 [History] Nystatin 4 ml PO QID 11/04/18 [History] Oxycodone HCl/Acetaminophen [Percocet 5-325 mg Tablet] 1 each PO TID 11/04/18 [History] Pioglitazone 30 mg [Actos 30 MG] 30 mg PO DAILY 11/04/18 [History] Polyethylene Glycol 3350 17 gm [Miralax Powder 17GM PACKET] 17 gm PO DAILY 11/04/18 [History] Potassium Chloride 10 Meq Tab* [Klor Con 10 MEQ] 10 meq PO TID 11/04/18 [History] Promethazine HCl 12.5 mg PO DAILY 11/04/18 [History] Rivaroxaban 10 mg Tablet [Xarelto 10 mg Tablet] 10 mg PO DAILY 11/04/18 [History] Topiramate 100 mg PO BID 11/04/18 [History] raNITIdine HCl [Zantac] 300 mg PO DAILY 11/04/18 [History] Hx Tetanus, Diphtheria Vaccination/Date Given: Yes (2015) Hx Influenza Vaccination/Date Given: Yes Hx Pneumococcal Vaccination/Date Given: No Travel Risk - International Travel Have you traveled outside of the country in past 3 weeks: No - Coronavirus Screening Are you exhibiting any of the following symptoms?: No Close contact with a COVID-19 positive Pt in past 14-21 Days: No - Review of Systems Constitutional: No Symptoms Eyes: No Symptoms Ears, Nose, & Throat: No Symptoms Respiratory: No Symptoms Cardiac: No Symptoms Abdominal/Gastrointestinal: No Symptoms Genitourinary Symptoms: No Symptoms Musculoskeletal: Fall, Injury (Right knee, right ankle and right foot) Skin: No Symptoms Neurological: No Symptoms Psychological: No Symptoms Endocrine: No Symptoms Hematologic/Lymphatic: No Symptoms Immunological/Allergic: No Symptoms All Other Systems: Reviewed and Negative - Past Medical History Pertinent Past Medical History: Yes Neurological History: Migraines, Peripheral Neuropathy ENT History: Other Cardiac History: Arrhythmia Respiratory History: Other Endocrine Medical History: Diabetes Type II, Hyperthyroidism Musculoskeletal History: Osteoarthritis GI Medical History: Diverticulosis, GERD, Gallbladder Disease History: No Pertinent History Psycho-Social History: Anxiety, Bipolar, Depression, Other Female Reproductive Disorders: Fibroids Other Medical History: pancreatitis, Lack of O2 in the blood, she notes her heart beats fast. - Past Surgical History Past Surgical History: Yes Neuro Surgical History: No Pertinent History Cardiac: No Pertinent History Respiratory: No Pertinent History Gastrointestinal: Cholecystectomy Genitourinary: No Pertinent History Musculoskeletal: Other Female Surgical History: Hysterectomy, Section Other Surgical History: surgery right foot pins/toes,right knee "rebuilt"-screw in place, fareed hands neuro/nerve surgeries,right wrist x two cyst removed and bone reconstruction,left wrist also,right eye-[place] removed ?, x two, back surgery - Social History Smoking Status: Former smoker How long have you smoked: 12 Exposure to second hand smoke: Yes Drug Use: none Patient Lives Alone: No - Nursing Vital Signs Nursing Vital Signs: Initial Vital Signs Temperature 99.1 F 04/10/20 23:25 Pulse Rate 92 H 04/10/20 23:25 Respiratory Rate 18 04/10/20 23:25 Blood Pressure 103/71 04/10/20 23:25 O2 Sat by Pulse Oximetry 98 04/10/20 23:25 Pain Scale Pain Intensity 9 - [place] Coma Score Best Eye Response ([place]): (4) open spontaneously Best Verbal Response ([place]): (5) oriented Best Motor Response ([place]): (6) obeys commands [place] Total: 15 - Physical Exam General Appearance: no apparent distress, alert, anxiety, obese Head Injury: no evidence of injury Eye Exam: PERRL/EOMI, eyes nml inspection ENT Exam: airway nml, nml ext.inspection Neck Exam: supple, trachea midline, full range of motion, normal alignment Respiratory/Chest Exam: No chest tenderness, No respiratory distress Gastrointestinal Exam: No tenderness Rectal Exam: not done Back Exam: normal inspection, normal range of motion, No CVA tenderness, No vertebral tenderness Extremity Exam: normal inspection, normal range of motion, tenderness (Right anterior knee, right ankle and right foot) Neurologic Exam: alert, oriented x 3, cooperative, chaperon II-XII nml as tested, normal mood/affect, nml cerebellar function, sensation nml Skin Exam: normal color, warm, dry SpO2 Interpretation: normal O2 Delivery: Room Air - Course Nursing assessment & vital signs reviewed: Yes Ordered Tests: Active Orders 24 hr Category Date Time Status ANKLE (3 VIEWS) Stat Exams 04/11/20 00:01 Taken FOOT (MINIMUM 3 VIEWS) Stat Exams 04/11/20 00:01 Taken KNEE (1 OR 2 VIEW) Stat Exams 04/11/20 00:01 Taken Medication Summary Generic Name Dose Route Start Last Admin Trade Name Justin PRN Reason Stop Dose Admin Morphine Sulfate 2 mg 04/11/20 01:32 Morphine Sulfate 2 Mg Inj IM 04/11/20 01:33 STAT ONE Ondansetron HCl 4 mg 04/11/20 01:32 Zofran Odt 4 Mg PO 04/11/20 01:33 STAT ONE - Progress Progress: improved, pain not gone completely, re-examined Progress Note: 04/11/20 01:33 X-ray of right knee reveals no acute fracture or dislocation X-ray of right ankle reveals no acute fracture dislocation X-ray of right foot reveals no acute fracture or dislocation. Medical decision making: This patient takes Percocet 4 times a day. Her last dose was approximately 4 hours ago. Patient states that her right side injuries were much worse than the left and does not feel that the x-rays of the left knee foot ankle or lower leg need to be x-rayed. She is bearing weight fine per her report, using of the left leg. We will provide her with very low-dose of morphine intramuscularly and Zofran ODT. We will also put her in a Aircast for her right ankle. Counseled pt/family regarding: diagnosis, need for follow-up, rad results - Departure Departure Disposition: Home Clinical Impression: Fall with injury, Contusion of lower extremity Condition: Stable Critical Care Time: No Referrals: OMAR BENSON MD [Primary Care Provider] - Additional Instructions: Wear your Aircast for comfort. May purchase a right knee sleeve/brace for comfort [id number]. Continue your Percocet pain medicine as prescribed. Follow-up with your primary care physician for persistent symptoms.
[2020-04-11] MEDS ORDERED: ZOFRAN ODT 4 MG PO ONE (01:32)
[2020-04-11] MEDS ORDERED: MORPHINE SULFATE 2 MG INJ IM ONE (01:32)
[2020-04-11] MEDS ORDERED: ZOFRAN ODT 4 MG ONE (02:01)
[2020-04-11] MEDS ORDERED: MORPHINE SULFATE 2 MG INJ ONE (02:02)
[2020-04-11 02:19] VITALS: BP 115/73
[2020-04-11 02:43] VITALS: PULSE 89; O2SAT 97
--- NOTE | 2020-04-11 09:17 | XRAY ---
Indication: Pain following fall. Comparison: August 31, 2017. 3 view right ankle demonstrates stable small heel spurs and small medial malleolus tip heterotopic ossifications. No other bony, articular, or soft tissue abnormalities. Foot reported separately.
--- NOTE | 2020-04-11 09:23 | XRAY ---
Indication: Pain following fall. Comparison: August 31, 2017. 3 nonweightbearing views right foot demonstrates new nondisplaced 4th and 5th metatarsal head fracture. Stable mild osteopenia, small heel spurs, and intact 1st metatarsal head orthopedic screw. No other bony, articular, or soft tissue abnormalities. Ankle reported separately. Comment: Fractures not reported by interpreting ER clinician. Telephone report given to Dr. Johnson at 0917 hrs. on April 11, 2020.
--- NOTE | 2020-04-11 09:25 | XRAY ---
Indication: Pain following fall. Comparison: November 20, 2013. AP/lateral right knee again demonstrates mild osteopenia, mild tricompartmental degenerative changes, nonspecific effusion, and intact proximal tibia orthopedic screw. New faint patella tendon calcifications presumed from old injury/inflammation. No other bony, articular, or soft tissue abnormalities.
== END 2020-04-11 02:42 | disposition home or self-care (01) ==
LOC: ED 23:04
DX: S92.341A Displaced fracture of fourth metatarsal bone, right foot, initial encounter for closed fracture (principal); S92.351A Displaced fracture of fifth metatarsal bone, right foot, initial encounter for closed fracture; W01.0XXA Fall on same level from slipping, tripping and stumbling without subsequent striking against object, initial encounter; Z79.899 Other long term (current) drug therapy; Z79.4 Long term (current) use of insulin
CPT/HCPCS: 73560; 73610; 73630; 96372; 99284; J2270; Q0162

== ENCOUNTER 2020-05-29 17:24 | Emergency (ER) | payer MEDICARE ==
[2020-05-29 18:51] LABS: Absolute Neutrophil Ct (ANC) 7.58 (1.4-6.9); BASOPHIL % 0.1 % (0.0-0.4); Basophil (Absolute #) 0.01 (0-0.4); Eosinophil % 2.5 % (0.00-5.0); Eosinophil (Absolute #) 0.28 (0-0.5); Hematocrit 32.2 % (35-47); Hemoglobin 8.4 gm/dl (12.0-16.0); Lymphocyte (Absolute #) 2.44 (1.0-4.6); Lymphocytes % 21.9 % (24.0-44.0); Mean Cell Volume 78.5 fl (78-100); Mean Corpuscular Hemoglobin 20.5 pg (26-32); Mean Corpuscular Hgb Concent. 26.1 g/dl (32-36); Mean Platelet Volume 11.3 fl (7.5-11.0); Monocyte (Absolute #) 0.81 (0.0-1.3); Monocytes % 7.3 % (0.0-12.0); Neutrophil % 68.2 % (36.0-66.0); Platelet Count 287 K/mm3 (150-450); White Blood Count 11.1 K/mm3 (4.0-10.5)
[2020-05-29 19:14] LABS: ALKALINE PHOSPHATASE 86 U/L (38-126); ANION GAP 9.6 MEQ/L (5-15); BLOOD UREA NITROGEN 8 mg/dL (7-17); CHLORIDE 99 mmol/L (98-107); Calcium 9.3 mg/dL (8.4-10.2); Carbon Dioxide 33 mmol/L (22-30); Creatinine 1 0.78 mg/dL (0.52-1.04); EST GLOMERULAR FILTRATION RATE > 60.0 ML/MIN; Glucose 80 mg/dL (74-106); NT PRO BNP 81.2 pg/mL (0-900); Potassium 3.4 mmol/L (3.5-5.1); SGOT/AST 21 U/L (14-36); SGPT/ALT 16 U/L (0-35); SODIUM 139 mmol/L (137-145); Total Protein 6.8 g/dL (6.3-8.2)
[2020-05-29 20:06] LABS: Slide Review 1 YES
[2020-05-29 20:20] VITALS: O2SAT 99
--- NOTE | 2020-05-29 20:47 | ERPHSYRPT ---
- History of Present Illness Time Seen by Provider: 05/29/20 17:56 Source: patient Exam Limitations: no limitations Patient Subjective Stated Complaint: Pt states "I had a boot on my right foot from breaking my foot and took it off yesterday and today I noticed my legs were swollen." Triage Nursing Assessment: Pt presented alert and oriented X3, skin pwd. PT lower legs tight and swollen, non pitting edema. PT in no apparent resiratory distress noted. Physician History: Patient is a 54-year-old female presents to our emergency department for evaluation of bilateral lower extremity swelling. Patient states she fractured her foot has been wearing a right lower extremity walking boot. Yesterday she removed her boot and observed her legs were swollen. No associated chest pain or shortness of breath. No nausea vomiting or diaphoresis. No trauma. No fevers. No lower extremity numbness tingling or weakness. Patient otherwise asymptomatic. Patient states she feels pressure at her right calf and some pain at her left calf. No history of PE DVT. Patient voices no other complaints or concerns at this time. Timing/Duration: today Severity: moderate Modifying Factors: Improves With: nothing Associated Symptoms: denies symptoms, other (Upon arrival patient was feeling drowsy. Patient's blood sugar was found to be in the 40 range. Patient was given orange juice and immediately felt better.) Allergies/Adverse Reactions: famotidine [From Pepcid] Allergy (Severe, Verified 04/10/20 23:36) Vomiting insulin lispro [From Humalog] Allergy (Severe, Verified 04/10/20 23:36) Anaphylactic Reaction lidocaine Allergy (Severe, Verified 04/10/20 23:36) Anaphylactic Reaction pt states all "edgar" potassium chloride Allergy (Severe, Verified 04/10/20 23:36) Swelling of Tongue and Lips liquid potassium caused tongue swelling. pt takes tablets without issue propranolol [From Inderal LA] Allergy (Severe, Verified 04/10/20 23:36) Anaphylactic Reaction sumatriptan [From Imitrex] Allergy (Severe, Verified 04/10/20 23:36) Anaphylactic Reaction sumatriptan succinate [From Imitrex] Allergy (Severe, Verified 04/10/20 23:36) Anaphylactic Reaction zolpidem [From Ambien] Allergy (Verified 04/10/20 23:36) Home Medications: Albuterol Sulfate [Proair Respiclick] 90 mcg IH QID 11/04/18 [History] Ascorbic Acid 500 mg [Vitamin C 500 MG] 500 mg PO DAILY 11/04/18 [History] Aspirin EC 81 mg [Ecotrin 81 mg] 81 mg PO DAILY 11/04/18 [History] Calcium Citrate [Calcitrate] 200 mg PO TID 11/04/18 [History] Carvedilol 3.125 mg [Coreg 3.125 MG] 3.125 mg PO BID 11/04/18 [History] Cyanocobalamin (Vitamin B-12) [Vitamin B-12] 500 mcg PO DAILY 11/04/18 [History] Doxepin HCl 100 mg PO HS 11/04/18 [History] Duloxetine HCl 30 mg [Cymbalta 30 MG Capsule] 60 mg PO DAILY 11/04/18 [History] Ergocalciferol (Vitamin D2) [Drisdol] 50,000 unit PO WEEKLY 11/04/18 [History] Esomeprazole Magnesium [Nexium] 40 mg PO DAILY 11/04/18 [History] Furosemide 20 mg [Lasix 20 mg] 20 mg PO BID 11/04/18 [History] Glimepiride 4 mg [Amaryl 4 mg] 4 mg PO BID 11/04/18 [History] Glycopyrrolate/Formoterol Fum [Bevespi Aerosphere Inhaler] 9 mcg IH BID 11/04/18 [History] Haloperidol 5 mg [Haldol 5 MG] 5 mg PO TID 11/04/18 [History] Insulin Aspart Prot/Insuln Asp [Novolog Mix 70-30 Flexpen Syrn] 25 unit SQ TID 11/04/18 [History] Insulin Glargine,Hum.rec.anlog [Lantus Solostar] 80 unit SQ BID 11/04/18 [History] Ipratropium/Albuterol Sulfate [Combivent Inhaler] 14.7 gm IH QID 11/04/18 [History] Ipratropium/Albuterol Sulfate [Iprat-Albut 0.5-3(2.5) mg/3 ml] 3 ml IH Q6H 11/04/18 [History] Levothyroxine Sodium 75 Mcg [Synthroid 75 Mcg] 75 mcg PO DAILY 11/04/18 [History] Lipase/Protease/Amylase [Armando Zuleta 24,000 Units Capsule] 2 each PO QID 11/04/18 [History] Loxapine Succinate [Loxapine] 10 mg PO BID 11/04/18 [History] Metoclopramide HCl 5 mg PO HS 11/04/18 [History] Montelukast Sodium 10 mg [Singulair 10 MG] 10 mg PO DAILY 11/04/18 [History] Multivit-Min/Iron/Folic/Lutein [Centrum Silver Women Tablet] 1 each PO DAILY 11/04/18 [History] Mupirocin [Bactroban OINTMENT] 22 gm TP TID 11/04/18 [History] Nystatin 4 ml PO QID 11/04/18 [History] Oxycodone HCl/Acetaminophen [Percocet 5-325 mg Tablet] 1 each PO TID 11/04/18 [History] Pioglitazone 30 mg [Actos 30 MG] 30 mg PO DAILY 11/04/18 [History] Polyethylene Glycol 3350 17 gm [Miralax Powder 17GM PACKET] 17 gm PO DAILY 11/04/18 [History] Potassium Chloride 10 Meq Tab* [Klor Con 10 MEQ] 10 meq PO TID 11/04/18 [History] Promethazine HCl 12.5 mg PO DAILY 11/04/18 [History] Rivaroxaban 10 mg Tablet [Xarelto 10 mg Tablet] 10 mg PO DAILY 11/04/18 [History] Topiramate 100 mg PO BID 11/04/18 [History] Hx Tetanus, Diphtheria Vaccination/Date Given: Yes Hx Influenza Vaccination/Date Given: Yes Hx Pneumococcal Vaccination/Date Given: Yes Immunizations Up to Date: Yes Travel Risk - International Travel Have you traveled outside of the country in past 3 weeks: No - Coronavirus Screening Are you exhibiting any of the following symptoms?: No Close contact with a COVID-19 positive Pt in past 14-21 Days: No - Review of Systems Constitutional: No Symptoms, No Fever, No Chills Eyes: No Symptoms Ears, Nose, & Throat: No Symptoms Respiratory: No Symptoms, No Cough, No Dyspnea Cardiac: No Symptoms, No Chest Pain, No Edema, No Syncope Abdominal/Gastrointestinal: No Symptoms, No Abdominal Pain, No Nausea, No Vomiting, No Diarrhea Genitourinary Symptoms: No Symptoms, No Dysuria Musculoskeletal: No Symptoms, No Back Pain, No Neck Pain Skin: No Symptoms, No Rash Neurological: No Symptoms, No Dizziness, No Focal Weakness, No Sensory Changes Psychological: No Symptoms Endocrine: No Symptoms Hematologic/Lymphatic: No Symptoms Immunological/Allergic: No Symptoms All Other Systems: Reviewed and Negative - Past Medical History Pertinent Past Medical History: Yes Neurological History: Migraines, Peripheral Neuropathy ENT History: Other Cardiac History: Arrhythmia Respiratory History: Other Endocrine Medical History: Diabetes Type II, Hyperthyroidism Musculoskeletal History: Osteoarthritis GI Medical History: Diverticulosis, GERD, Gallbladder Disease History: No Pertinent History Psycho-Social History: Anxiety, Bipolar, Depression, Other Female Reproductive Disorders: Fibroids Other Medical History: pancreatitis, Lack of O2 in the blood, she notes her heart beats fast. - Past Surgical History Past Surgical History: Yes Neuro Surgical History: No Pertinent History Cardiac: No Pertinent History Respiratory: No Pertinent History Gastrointestinal: Cholecystectomy Genitourinary: No Pertinent History Musculoskeletal: Other Female Surgical History: Hysterectomy, Section Other Surgical History: surgery right foot pins/toes,right knee "rebuilt"-screw in place, fareed hands neuro/nerve surgeries,right wrist x two cyst removed and bone reconstruction,left wrist also,right eye-[place] removed ?, x two, back surgery - Social History Smoking Status: Former smoker How long have you smoked: 12 Exposure to second hand smoke: Yes Drug Use: none Patient Lives Alone: No - Female History Hx Now: No - Nursing Vital Signs Nursing Vital Signs: Initial Vital Signs Temperature 98.4 F 05/29/20 17:36 Pulse Rate 78 05/29/20 17:36 Respiratory Rate 20 05/29/20 17:36 Blood Pressure 115/86 05/29/20 17:36 O2 Sat by Pulse Oximetry 100 05/29/20 17:36 Pain Scale Pain Intensity 0 - Physical Exam General Appearance: no apparent distress, alert Eye Exam: PERRL/EOMI, eyes nml inspection Ears, Nose, Throat Exam: normal ENT inspection, TMs normal, pharynx normal, moist mucous membranes Neck Exam: normal inspection, non-tender, supple, full range of motion Respiratory Exam: normal breath sounds, lungs clear, No respiratory distress Cardiovascular Exam: regular rate/rhythm, normal heart sounds, normal peripheral pulses Gastrointestinal/Abdomen Exam: soft, normal bowel sounds, No tenderness, No mass Back Exam: normal inspection, normal range of motion, No CVA tenderness, No vertebral tenderness Extremity Exam: normal inspection, normal range of motion, pelvis stable, other (2+ pitting edema bilateral lower extremity. Bilateral Homans' sign positive. Bilateral lower extremities are neurovascularly intact distally. Compartments are soft. Cap refill less than 2 seconds.) Neurologic Exam: alert, oriented x 3, cooperative, normal mood/affect, nml cerebellar function, nml station & gait, sensation nml, No motor deficits Skin Exam: normal color, warm, dry, No rash Lymphatic Exam: No adenopathy SpO2 Interpretation: normal SpO2: 99 O2 Delivery: Room Air - Course Nursing assessment & vital signs reviewed: Yes EKG Interpreted by Me: RATE (80), Sinus Rhythm, NORMAL AXIS, NORMAL INTERVALS - Radiology Exams Chest X-ray Interpretation: Interpreted by me (Chest x-ray. No infiltrate consolidation. No pulmonary congestion.) Ordered Tests: Active Orders 24 hr Category Date Time Status It Infrastructure Manager STAT Care 05/29/20 17:58 Active EKG-ER Only STAT Care 05/29/20 17:57 Active IV Insertion STAT Care 05/29/20 17:57 Active Pulse Oximetry (ED) STAT Care 05/29/20 17:57 Active CHEST 1 VIEW (PORTABLE) Stat Exams 05/29/20 17:58 Taken VENOUS BILATERAL EXTREMITY [US] Stat Exams 05/29/20 18:06 Taken CBC W DIFF Stat Lab 05/29/20 18:30 Completed CMP Stat Lab 05/29/20 18:30 Completed MAGNESIUM Stat Lab 05/29/20 18:30 Completed NT PRO BNP Stat Lab 05/29/20 18:30 Completed TROPONIN Q3H Lab 05/29/20 18:30 Completed TROPONIN Q3H Lab 05/29/20 21:29 Completed TROPONIN Q3H Lab 05/30/20 00:00 Ordered TROPONIN Q3H Lab 05/30/20 03:00 Ordered TROPONIN Q3H Lab 05/30/20 06:00 Ordered UA W/RFX UR CULTURE Stat Lab 05/29/20 20:47 Completed Lab/Rad Data: Laboratory Result Diagrams 05/29/20 18:30 05/29/20 18:30 Laboratory Results 05/29/20 05/29/20 05/29/20 Range/Units 21:29 20:47 18:30 WBC (4.0-10.5) K/mm3 RBC (4.1-5.4) M/mm3 Hgb (12.0-16.0) gm/dl Hct (35-47) % MCV (78-100) fl MCH (26-32) pg MCHC (32-36) g/dl RDW (11.5-14.0) % Plt Count (150-450) K/mm3 MPV (7.5-11.0) fl Gran % (36.0-66.0) % Eos # (Auto) (0-0.5) Absolute Lymphs (auto) (1.0-4.6) Absolute Monos (auto) (0.0-1.3) Lymphocytes % (24.0-44.0) % Monocytes % (0.0-12.0) % Eosinophils % (0.00-5.0) % Basophils % (0.0-0.4) % Absolute Granulocytes (1.4-6.9) Basophils # (0-0.4) Sodium (137-145) mmol/L Potassium (3.5-5.1) mmol/L Chloride (98-107) mmol/L Carbon Dioxide (22-30) mmol/L Anion Gap (5-15) MEQ/L BUN (7-17) mg/dL Creatinine (0.52-1.04) mg/dL Estimated GFR ML/MIN Glucose (74-106) mg/dL Calcium (8.4-10.2) mg/dL Magnesium (1.6-2.3) mg/dL Total Bilirubin (0.2-1.3) mg/dL AST (14-36) U/L ALT (0-35) U/L Alkaline Phosphatase (38-126) U/L Troponin I < 0.012 < 0.012 (0.000-0.034) ng/mL NT-Pro-B Natriuret Pep (0-900) pg/mL Serum Total Protein (6.3-8.2) g/dL Albumin (3.5-5.0) g/dL Urine Color STRAW (YELLOW) Urine Appearance CLEAR (CLEAR) Urine pH 9.0 (5-6) Ur Specific [place] 1.004 (1.005-1.025) Urine Protein NEGATIVE (Negative) Urine Ketones NEGATIVE (NEGATIVE) Urine Blood NEGATIVE (0-5) Regis/ul Urine Nitrite NEGATIVE (NEGATIVE) Urine Bilirubin NEGATIVE (NEGATIVE) Urine Urobilinogen NEGATIVE (0-1) mg/dL Ur Leukocyte Esterase TRACE (NEGATIVE) Urine WBC (Auto) 6-10 (0-5) /HPF Urine RBC (Auto) NONE (0-2) /HPF U Epithel Cells (Auto) NONE (FEW) /HPF Urine Bacteria (Auto) NONE SEEN (NEGATIVE) /HPF Urine Culture Reflexed NO (NO) Urine Glucose NEGATIVE (NEGATIVE) mg/dL Slides for Path Review 05/29/20 05/29/20 Range/Units 18:30 18:30 WBC 11.1 H (4.0-10.5) K/mm3 RBC 4.10 (4.1-5.4) M/mm3 Hgb 8.4 L (12.0-16.0) gm/dl Hct 32.2 L (35-47) % MCV 78.5 (78-100) fl MCH 20.5 L (26-32) pg MCHC 26.1 L (32-36) g/dl RDW 19.0 H (11.5-14.0) % Plt Count 287 (150-450) K/mm3 MPV 11.3 H (7.5-11.0) fl Gran % 68.2 H (36.0-66.0) % Eos # (Auto) 0.28 (0-0.5) Absolute Lymphs (auto) 2.44 (1.0-4.6) Absolute Monos (auto) 0.81 (0.0-1.3) Lymphocytes % 21.9 L (24.0-44.0) % Monocytes % 7.3 (0.0-12.0) % Eosinophils % 2.5 (0.00-5.0) % Basophils % 0.1 (0.0-0.4) % Absolute Granulocytes 7.58 H (1.4-6.9) Basophils # 0.01 (0-0.4) Sodium 139 (137-145) mmol/L Potassium 3.4 L (3.5-5.1) mmol/L Chloride 99 (98-107) mmol/L Carbon Dioxide 33 H (22-30) mmol/L Anion Gap 9.6 (5-15) MEQ/L BUN 8 (7-17) mg/dL Creatinine 0.78 (0.52-1.04) mg/dL Estimated GFR > 60.0 ML/MIN Glucose 80 (74-106) mg/dL Calcium 9.3 (8.4-10.2) mg/dL Magnesium 2.0 (1.6-2.3) mg/dL Total Bilirubin 0.10 L (0.2-1.3) mg/dL AST 21 (14-36) U/L ALT 16 (0-35) U/L Alkaline Phosphatase 86 (38-126) U/L Troponin I (0.000-0.034) ng/mL NT-Pro-B Natriuret Pep 81.2 (0-900) pg/mL Serum Total Protein 6.8 (6.3-8.2) g/dL Albumin 4.0 (3.5-5.0) g/dL Urine Color (YELLOW) Urine Appearance (CLEAR) Urine pH (5-6) Ur Specific [place] (1.005-1.025) Urine Protein (Negative) Urine Ketones (NEGATIVE) Urine Blood (0-5) Regis/ul Urine Nitrite (NEGATIVE) Urine Bilirubin (NEGATIVE) Urine Urobilinogen (0-1) mg/dL Ur Leukocyte Esterase (NEGATIVE) Urine WBC (Auto) (0-5) /HPF Urine RBC (Auto) (0-2) /HPF U Epithel Cells (Auto) (FEW) /HPF Urine Bacteria (Auto) (NEGATIVE) /HPF Urine Culture Reflexed (NO) Urine Glucose (NEGATIVE) mg/dL Slides for Path Review YES - Progress Progress: improved Progress Note: Patient reassessed. She feels well. No chest pain or shortness of breath. No nausea vomiting or diaphoresis. Patient had bouts of hypoglycemia in our ED. Patient states that she has been dealing with this for several weeks and she is currently working with her physician to adjust her insulin. Cause of bilateral lower extremity swelling is unclear. Ultrasound negative for DVT. BNP is normal. No pulmonary congestion. CHF very unlikely. Renal function within normal limits. We will discharge patient home. Patient agrees to follow-up with her primary care doctor for further evaluation and treatment of her leg swelling. Plan of care discussed with patient. She voices no other complaints at this time. Patient requesting discharge. 05/29/20 22:45 05/29/20 22:47 Counseled pt/family regarding: lab results, diagnosis, need for follow-up, rad results - Departure Departure Disposition: Home Clinical Impression: Hypoglycemia, Leg swelling Condition: Stable Critical Care Time: No Referrals: OMAR BENSON MD [Primary Care Provider] - Additional Instructions: Discharge/Care Plan HIREN BENSON was seen on 05/29/20 in the Emergency Room. The patient was counseled regarding Diagnosis,Lab results, Imaging studies, need for follow up and when to return to the Emergency Room. Prescriptions given: Discharge Note I have spoken with the patient and/or caregivers. I have explained the patient's condition, diagnosis and treatment plan based on the information available to me at this time. I have answered the patient's and/or caregiver's questions and addressed any concerns. The patient and/or caregivers have as good understanding of the patient's diagnosis, condition and treatment plan as can be expected at this point. The vital signs have been stable. The patient's condition is stable and appropriate for discharge from the emergency department. The patient will pursue further outpatient evaluation with the primary care physician or other designated or consulting physician as outlined in the discharge instructions. The patient and/or caregivers are agreeable to this plan of care and follow-up instructions have been explained in detail. The patient and/or caregivers have received these instruction. The patient/and or caregivers are aware that any significant change in condition or worsening of symptoms should prompt an immediate return to this or the closest emergency department or call 911.
[2020-05-29 21:06] LABS: Appearance CLEAR (CLEAR); Bilirubin NEGATIVE (NEGATIVE); Blood NEGATIVE Ery/ul (0-5); Glucose NEGATIVE (NEGATIVE); Ketones NEGATIVE (NEGATIVE); Leukocyte Esterase TRACE (NEGATIVE); Nitrite NEGATIVE (NEGATIVE); Protein,Urine Dip NEGATIVE (Negative); Specific Gravity 1.004 (1.005-1.025); Urobilinogen NEGATIVE mg/dL (0-1)
[2020-05-29 21:07] LABS: Bacteria NONE SEEN /HPF (NEGATIVE)
[2020-05-29 23:00] VITALS: BP 121/67; PULSE 74
--- NOTE | 2020-05-30 13:18 | XRAY ---
Exam: AP upright portable chest film from 05/29/2020. Comparison: AP upright portable chest film from 07/25/2019. Indication: Pulmonary congestion, swelling in legs. Findings: 2 AP upright portable chest films were obtained. The patient is slightly rotated toward the right on both images. Fine surgical suture material is seen along the right margin of the thoracic inlet. Correlate with surgical history. The transverse heart size appears within normal limits. The remainder of the marin and mediastinal structures appears unremarkable. There is average inflation of the lungs. An 8 mm calcified granuloma is again seen at the lateral right lung apex representing no change from 07/25/2019. No abnormal soft tissue lung nodule is seen. No air space infiltrates, vascular congestion, pneumothorax, or pleural fluid is seen. Lateral osteophyte formation is seen on the right within the lower thoracic spine. No acute osseous process is seen. Impression: 1. No pulmonary vascular congestion to suggest fluid volume overload or heart failure is seen. I see no other evidence of acute cardiopulmonary disease. 2. Stable calcified granuloma at lateral right lung apex.
--- NOTE | 2020-05-30 13:35 | XRAY ---
Exam: Bilateral lower extremity duplex Doppler venous ultrasound exam from 05/29/2020. There is an: None. Indication: 54-year-old female with bilateral lower extremity swelling. Findings: Wilson scale images, color blood flow images, and Doppler tracings without and with augmentation were obtained within both lower extremities. Right lower extremity: Normal transducer compression, color flow imaging, and Doppler signal without and with augmentation were seen throughout the right lower extremity deep veins. No echogenic thrombus was seen. Envelope Sealing Machine Operator images of the greater saphenous vein reveal normal color flow imaging and transducer compression. The profunda femoral vein reveals normal Doppler signal augmentation. I note moderate subcutaneous soft tissue swelling and edema within the distal right lower leg. Left lower extremity: Normal transducer compression, color flow imaging, and Doppler signal augmentation were seen throughout the deep veins on the left. I again see some mild superficial subcutaneous edema/soft tissue swelling within the distal left lower leg. The profunda femoral vein reveals normal color blood flow and Doppler signal augmentation. The greater saphenous vein reveals normal transducer compression. Unremarkable color blood flow and Doppler signal augmentation were seen within the left greater saphenous vein near the superficial femoral vein junction. Impression: 1. No sonographic or Doppler evidence of deep or superficial venous thrombosis was seen within either lower extremity. 2. Superficial subcutaneous soft tissue swelling/edema is seen within both distal lower legs.
== END 2020-05-29 22:57 | disposition home or self-care (01) ==
LOC: ED 17:24
DX: E16.2 Hypoglycemia, unspecified (principal); M79.89 Other specified soft tissue disorders; M79.662 Pain in left lower leg; E11.9 Type 2 diabetes mellitus without complications; E05.90 Thyrotoxicosis, unspecified without thyrotoxic crisis or storm; F41.9 Anxiety disorder, unspecified; Z79.899 Other long term (current) drug therapy; Z79.4 Long term (current) use of insulin; Z79.891 Long term (current) use of opiate analgesic; Z79.01 Long term (current) use of anticoagulants
CPT/HCPCS: 36415; 71045; 80053; 81001; 83735; 83880; 84484; 85025; 93005; 93041; 93970; 94760; 99284

== ENCOUNTER → 2020-08-01 | Day surgery (SDC) | payer MEDICARE ==
[~2020-08-01] MED LIST: INJECTAFER 750 MG 750 MG in Sodium Chloride 0.9% 250 ML 250 ML IV SCH
[2020-08-01 14:58] VITALS: BP 137/77; PULSE 72; O2SAT 97
== END ==
LOC: INFUSION 13:22
PROVIDERS: ATTEND Internal Medicine
DX: D50.8 Other iron deficiency anemias (principal); K90.9 Intestinal malabsorption, unspecified
CPT/HCPCS: 96365; 99211; J1439

== ENCOUNTER 2021-06-25 17:14 | Emergency (ER) | payer MEDICARE ==
[2021-06-25] MEDS ORDERED: XYLOCAINE 1% HCL 20 ML MDV IJ ONE (17:15)
--- NOTE | 2021-06-25 17:19 | ERPHSYRPT ---
- History of Present Illness Time Seen by Provider: 06/25/21 17:19 Source: patient Exam Limitations: no limitations Physician History: This is a morbidly obese 55-year-old white female has a history of hypertension, diabetes, hypothyroidism and a history of deep venous thrombosis and is no longer on any anticoagulation therapy. She presents with 2-day history of right lower extremity, medial aspect redness tenderness and some swelling. Patient is concerned for 2 things. The first is, DVT. The second thing is infection. Patient has not been coughing. She has no shortness of breath. Patient states that she has multiple allergies but can take Rocephin and oral Bactrim DS without any problems. Method of Injury: other (No specific injury) Occurred: days ago (2) Severity of Pain-Max: mild Severity of Pain-Current: mild Modifying Factors: Improves With: nothing Associated Symptoms: none Allergies/Adverse Reactions: famotidine [From Pepcid] Allergy (Severe, Verified 06/25/21 17:28) Vomiting insulin lispro [From Humalog] Allergy (Severe, Verified 06/25/21 17:28) Anaphylactic Reaction potassium chloride Allergy (Severe, Verified 06/25/21 17:28) Swelling of Tongue and Lips liquid potassium caused tongue swelling. pt takes tablets without issue propranolol [From Inderal LA] Allergy (Severe, Verified 06/25/21 17:28) Anaphylactic Reaction sumatriptan [From Imitrex] Allergy (Severe, Verified 06/25/21 17:28) Anaphylactic Reaction sumatriptan succinate [From Imitrex] Allergy (Severe, Verified 06/25/21 17:28) Anaphylactic Reaction procaine [From Novocain] Allergy (Intermediate, Verified 06/25/21 17:28) Swelling zolpidem [From Ambien] Allergy (Verified 06/25/21 17:28) Home Medications: Albuterol Sulfate [Proair Respiclick] 90 mcg IH QID 11/04/18 [History] Ascorbic Acid 500 mg [Vitamin C 500 MG] 500 mg PO DAILY 11/04/18 [History] Aspirin EC 81 mg [Ecotrin 81 mg] 81 mg PO DAILY 11/04/18 [History] Calcium Citrate [Calcitrate] 200 mg PO TID 11/04/18 [History] Carvedilol 3.125 mg [Coreg 3.125 MG] 3.125 mg PO BID 11/04/18 [History] Cyanocobalamin (Vitamin B-12) [Vitamin B-12] 500 mcg PO DAILY 11/04/18 [History] Doxepin HCl 100 mg PO HS 11/04/18 [History] Duloxetine HCl 30 mg [Cymbalta 30 MG Capsule] 60 mg PO DAILY 11/04/18 [History] Ergocalciferol (Vitamin D2) [Drisdol] 50,000 unit PO WEEKLY 11/04/18 [History] Esomeprazole Magnesium [Nexium] 40 mg PO DAILY 11/04/18 [History] Furosemide 20 mg [Lasix 20 mg] 20 mg PO BID 11/04/18 [History] Glimepiride 4 mg [Amaryl 4 mg] 4 mg PO BID 11/04/18 [History] Insulin Aspart Prot/Insuln Asp [Novolog Mix 70-30 Flexpen Syrn] 25 unit SQ TID 11/04/18 [History] Ipratropium/Albuterol Sulfate [Iprat-Albut 0.5-3(2.5) mg/3 ml] 3 ml IH Q6H 11/04/18 [History] Levothyroxine Sodium 75 Mcg [Synthroid 75 Mcg] 75 mcg PO DAILY 11/04/18 [History] Lipase/Protease/Amylase [Creon Dr 24,000 Units Capsule] 2 each PO QID 11/04/18 [History] Loxapine Succinate [Loxapine] 10 mg PO BID 11/04/18 [History] Metoclopramide HCl 5 mg PO HS 11/04/18 [History] Montelukast Sodium 10 mg [Singulair 10 MG] 10 mg PO DAILY 11/04/18 [History] Multivit-Min/Iron/Folic/Lutein [Centrum Silver Women Tablet] 1 each PO DAILY 11/04/18 [History] Nystatin 4 ml PO QID 11/04/18 [History] Oxycodone HCl/Acetaminophen [Percocet 5-325 mg Tablet] 1 each PO TID 11/04/18 [History] Pioglitazone 30 mg [Actos 30 MG] 30 mg PO DAILY 11/04/18 [History] Polyethylene Glycol 3350 17 gm [Miralax Powder 17GM PACKET] 17 gm PO DAILY PRN PRN 11/04/18 [History] Potassium Chloride 10 Meq Tab* [Klor Con 10 MEQ] 10 meq PO TID 11/04/18 [History] Promethazine HCl 12.5 mg PO HS PRN PRN 11/04/18 [History] Topiramate 100 mg PO BID 11/04/18 [History] Apremilast [Otezla] 1 each PO BID 08/01/20 [History] Cyclobenzaprine HCl 10 mg [Cyclobenzaprine 10 MG] 10 mg PO BID 08/01/20 [History] Gabapentin 300 mg [Neurontin 300 mg] 300 mg PO TID 08/01/20 [History] Glucagon,Human Recombinant [Glucagen] 1 mg IJ UD 08/01/20 [History] Levocetirizine Dihydrochloride 5 mg PO BID 08/01/20 [History] Losartan Potassium [Cozaar] 25 mg PO BID 08/01/20 [History] Mirtazapine 30 mg [Remeron 30 mg] 30 mg PO BID 08/01/20 [History] Naphazoline HCl/Pheniramine [Allergy Eye Drops] 15 ml OP BID 08/01/20 [History] Silver Sulfadiazine [Silvadene] 1,000 gm TP DAILY PRN PRN 08/01/20 [History] haloperidoL [Haloperidol] 10 mg PO TID 08/01/20 [History] Hx Tetanus, Diphtheria Vaccination/Date Given: Yes Hx Influenza Vaccination/Date Given: Yes Hx Pneumococcal Vaccination/Date Given: Yes Travel Risk - International Travel Have you traveled outside of the country in past 3 weeks: No - Coronavirus Screening Are you exhibiting any of the following symptoms?: No Close contact with a COVID-19 positive Pt in past 14-21 Days: No - Review of Systems Constitutional: No Symptoms Eyes: No Symptoms Ears, Nose, & Throat: No Symptoms Respiratory: No Symptoms Cardiac: No Symptoms Abdominal/Gastrointestinal: No Symptoms Genitourinary Symptoms: No Symptoms Musculoskeletal: No Symptoms Skin: Cellulitis, Other (Tenderness medial aspect right lower extremity. Mild swelling and redness present.) Neurological: No Symptoms Psychological: No Symptoms Endocrine: No Symptoms Hematologic/Lymphatic: No Symptoms Immunological/Allergic: No Symptoms All Other Systems: Reviewed and Negative - Past Medical History Pertinent Past Medical History: Yes Neurological History: Other ENT History: Other Cardiac History: Arrhythmia, High Cholesterol, Hypertension Respiratory History: Other Endocrine Medical History: Diabetes Type II, Hypothyroidism Musculoskeletal History: Fractures GI Medical History: Diverticulosis, GERD, Gallbladder Disease History: No Pertinent History Psycho-Social History: Anxiety, Bipolar, Depression, Other Female Reproductive Disorders: Fibroids Other Medical History: PATIENT REPORTS HX OF COVID BUT ASYMPTOMATIC, IS VACCINATED FOR COVID. ALSO REPORTS "DON'T BREATH DEEP ENOUGH" SO USES NEBULIZER EVERY DAY. HX FX RIGHT TIBIA WITH ORIF AT AGE 15, SURGERY RIGHT GREAT TOE FOR HALLUX VALGUS 5 YEARS AGO. - Past Surgical History Past Surgical History: Yes Neuro Surgical History: No Pertinent History Cardiac: No Pertinent History Respiratory: No Pertinent History Gastrointestinal: Cholecystectomy Genitourinary: No Pertinent History Musculoskeletal: Other Female Surgical History: Hysterectomy, Section Other Surgical History: surgery right foot pins/toes,right knee "rebuilt"-screw in place, fareed hands neuro/nerve surgeries,right wrist x two cyst removed and bone reconstruction,left wrist also,right eye-[place] removed ?, x two, back surgery - Social History Smoking Status: Former smoker How long have you smoked: 12 Exposure to second hand smoke: Yes Drug Use: none Patient Lives Alone: No - Nursing Vital Signs Nursing Vital Signs: Initial Vital Signs Temperature 97.4 F 06/25/21 17:21 Pulse Rate 90 06/25/21 17:21 Respiratory Rate 18 06/25/21 17:21 Blood Pressure 131/92 06/25/21 17:21 O2 Sat by Pulse Oximetry 98 06/25/21 17:21 Pain Scale Pain Intensity 2 - Physical Exam General Appearance: no apparent distress, alert, anxiety, obese Eyes, Ears, Nose, Throat Exam: normal ENT inspection, moist mucous membranes Neck Exam: normal inspection, non-tender, supple, full range of motion Cardiovascular/Respiratory Exam: chest non-tender, no respiratory distress Gastrointestinal/Abdominal Exam: non-tender Back Exam: normal inspection, normal range of motion, No CVA tenderness, No vertebral tenderness Hips Exam: bilateral: non-tender, normal inspection, normal range of motion, no evidence of injury Legs Exam: right leg: soft tissue tenderness (Right lower leg below the knee medial aspect), swelling (Right lower leg below the knee medial aspect), other, left leg: non-tender, normal inspection, bilateral leg: normal range of motion, no evidence of injury Knees Exam: bilateral knee: non-tender, normal inspection, normal range of motion, no evidence of injury Ankle Exam: bilateral ankle: non-tender, normal inspection, normal range of motion, no evidence of injury Foot Exam: bilateral foot: non-tender, normal inspection, normal range of mo tion, no evidence of injury Neuro/Tendon Exam: normal sensation, normal motor functions, normal tendon functions, responds to pain, no evidence tendon injury Mental Status Exam: alert, oriented x 3, cooperative Skin Exam: other (Colitis redness tenderness and swelling medial aspect distal right lower leg) SpO2 Interpretation: normal O2 Delivery: Room Air Ordered Tests: Active Orders 24 hr Category Date Time Status D-DIMER QUANTITATIVE Stat Lab 06/25/21 17:31 Completed Medication Summary Discontinued Medications Generic Name Dose Route Start Last Admin Trade Name Justin PRN Reason Stop Dose Admin Ceftriaxone Sodium 1,000 mg 06/25/21 17:52 06/25/21 17:55 Ceftriaxone Sodium 1000 Mg Inj Vial IM 06/25/21 17:53 1,000 mg STAT ONE Administration Ceftriaxone Sodium Confirm 06/25/21 17:53 Ceftriaxone Sodium 1000 Mg Inj Vial Administered 06/25/21 17:54 Dose 1,000 mg .ROUTE .STK-MED ONE Enoxaparin Sodium 150 mg 06/25/21 18:23 Enoxaparin Sodium 150 Mg/Ml Syringe SQ 06/25/21 18:24 STAT ONE Lab/Rad Data: Laboratory Results 06/25/21 Range/Units 17:31 D-Dimer 537 H* (215-500) ng/mL - Progress Progress: unchanged Progress Note: 06/25/21 18:31 Medical decision making: This patient has a history of DVTs. She is obese. She is no longer on any anticoagulation therapy. She has an elevated D-dimer. She does have redness and swelling in medial aspect distal right lower extremity. It is tender there. We will provide the patient with intramuscular Rocephin injection and a subcutaneous Lovenox injection 150 mg 1 time. We will then continue Bactrim DS orally as an outpatient. Patient is scheduled for an outpatient ultrasound tomorrow 06/26/2021 Counseled pt/family regarding: lab results, diagnosis, need for follow-up - Departure Departure Disposition: Home Clinical Impression: Cellulitis Condition: Stable Critical Care Time: No Referrals: OMAR BENSON MD [Primary Care Provider] - Follow up/PCP as directed Additional Instructions: Take your medication as prescribed. Follow-up at the [facility] radiology department at 2:45 PM. You have a right lower extremity venous Doppler scheduled to evaluate for a deep venous thrombosis. Call your primary care physician tomorrow at 4 PM to obtain your ultrasound results. If your primary care physician is not available, call the emergency department for your results and further evaluation and management instructions. Prescriptions: Smz/Tmp Ds Tablet [Bactrim Ds Tablet] 1 udtab PO BID #14 tablet
[2021-06-25] MEDS ORDERED: Rocephin 1000 MG INJ ONE (17:53)
[2021-06-25] MEDS: Rocephin 1000 MG INJ IM ONE (17:55)
[2021-06-25 18:27] VITALS: PULSE 84
[2021-06-25] MEDS: ENOXAPARIN SODIUM SQ ONE (18:31)
[2021-06-25 18:37] VITALS: BP 125/90; O2SAT 97
== END 2021-06-25 18:42 | disposition home or self-care (01) ==
LOC: ED 17:14
DX: L03.115 Cellulitis of right lower limb (principal); M79.604 Pain in right leg; E78.5 Hyperlipidemia, unspecified; I10 Essential (primary) hypertension; E11.9 Type 2 diabetes mellitus without complications; K21.9 Gastro-esophageal reflux disease without esophagitis; Z79.4 Long term (current) use of insulin; Z79.891 Long term (current) use of opiate analgesic
CPT/HCPCS: 36415; 85379; 96372; 99284; J0696; J1650

== ENCOUNTER 2021-12-17 16:05 | Emergency (ER) | payer MEDICARE ==
--- NOTE | 2021-12-17 16:36 | ERPHSYRPT ---
- History of Present Illness Time Seen by Provider: 12/17/21 16:20 Source: patient Exam Limitations: no limitations Patient Subjective Stated Complaint: PT states"I have had a week from hell. I feel like I need to run but I can hardly walk. I feel like I need to sleep but I cannot sleep, I am numb to my knees, I am numb to my elbows." Triage Nursing Assessment: Pt presented alert and oriented X3, skin pwd. Pt ambulates with an upright steady gait, able to speak in clear full setences pt aggitated, unable to sit still. Physician History: Patient is a 56-year-old female presents to our ED for evaluation of anxiety. Patient states that she has been under a tremendous amount of stress. Patient's electric has been off of her home for approximately 2 weeks. Patient states she had to bury her dog today. Patient has a history of bipolar and anxiety. Patient states that stress is likely causing her symptoms. She complains of sleeplessness/insomnia. Patient states she feels very anxious. Patient states her hands and her feet are numb. No chest pain or shortness of breath. No nausea vomiting or diaphoresis symptoms are mild to moderate in intensity. Patient's stressful situation is likely exacerbating her underlying anxiety. Patient voices no other complaints or concerns at this time. Portions of this note were created with voice recognition technology. There may be grammatical, spelling, punctuation or sound alike errors Timing/Duration: today Severity: moderate Modifying Factors: Improves With: nothing Associated Symptoms: denies symptoms Allergies/Adverse Reactions: famotidine [From Pepcid] Allergy (Severe, Verified 06/25/21 17:28) Vomiting insulin lispro [From Humalog] Allergy (Severe, Verified 06/25/21 17:28) Anaphylactic Reaction potassium chloride Allergy (Severe, Verified 06/25/21 17:28) Swelling of Tongue and Lips liquid potassium caused tongue swelling. pt takes tablets without issue propranolol [From Inderal LA] Allergy (Severe, Verified 06/25/21 17:28) Anaphylactic Reaction sumatriptan [From Imitrex] Allergy (Severe, Verified 06/25/21 17:28) Anaphylactic Reaction sumatriptan succinate [From Imitrex] Allergy (Severe, Verified 06/25/21 17:28) Anaphylactic Reaction procaine [From Novocain] Allergy (Intermediate, Verified 06/25/21 17:28) Swelling zolpidem [From Ambien] Allergy (Verified 06/25/21 17:28) Home Medications: Albuterol Sulfate [Proair Respiclick] 90 mcg IH QID 11/04/18 [History] Ascorbic Acid 500 mg [Vitamin C 500 MG] 500 mg PO DAILY 11/04/18 [History] Aspirin EC 81 mg [Ecotrin 81 mg] 81 mg PO DAILY 11/04/18 [History] Carvedilol 3.125 mg [Coreg 3.125 MG] 3.125 mg PO BID 11/04/18 [History] Cyanocobalamin (Vitamin B-12) [Vitamin B-12] 500 mcg PO DAILY 11/04/18 [History] Duloxetine HCl 30 mg [Cymbalta 30 MG Capsule] 60 mg PO DAILY 11/04/18 [History] Ergocalciferol (Vitamin D2) [Drisdol] 50,000 unit PO WEEKLY 11/04/18 [History] Esomeprazole Magnesium [Nexium] 40 mg PO DAILY 11/04/18 [History] Furosemide 20 mg [Lasix 20 mg] 20 mg PO BID 11/04/18 [History] Glimepiride 4 mg [Amaryl 4 mg] 4 mg PO BID 11/04/18 [History] Insulin Aspart Prot/Insuln Asp [Novolog Mix 70-30 Flexpen Syrn] 25 unit SQ TID 11/04/18 [History] Levothyroxine Sodium 75 Mcg [Synthroid 75 Mcg] 75 mcg PO DAILY 11/04/18 [History] Lipase/Protease/Amylase [Creon Dr 24,000 Units Capsule] 2 each PO QID 11/04/18 [History] Loxapine Succinate [Loxapine] 10 mg PO BID 11/04/18 [History] Metoclopramide HCl 5 mg PO HS 11/04/18 [History] Montelukast Sodium 10 mg [Singulair 10 MG] 10 mg PO DAILY 11/04/18 [History] Oxycodone HCl/Acetaminophen [Percocet 5-325 mg Tablet] 1 each PO TID 11/04/18 [History] Pioglitazone 30 mg [Actos 30 MG] 30 mg PO DAILY 11/04/18 [History] Polyethylene Glycol 3350 17 gm [Miralax Powder 17GM PACKET] 17 gm PO DAILY PRN PRN 11/04/18 [History] Potassium Chloride Tab* [Klor Con 10 MEQ] 10 meq PO TID 11/04/18 [History] Promethazine HCl 12.5 mg PO HS PRN PRN 11/04/18 [History] Topiramate 100 mg PO HS 11/04/18 [History] Apremilast [Otezla] 1 each PO BID 08/01/20 [History] Cyclobenzaprine HCl 10 mg [Cyclobenzaprine 10 MG] 10 mg PO BID 08/01/20 [History] Gabapentin [Neurontin 300 mg] 300 mg PO TID 08/01/20 [History] Glucagon,Human Recombinant [Glucagen] 1 mg IJ UD 08/01/20 [History] Levocetirizine Dihydrochloride 5 mg PO BID 08/01/20 [History] Losartan Potassium [Cozaar] 25 mg PO BID 08/01/20 [History] Mirtazapine 30 mg [Remeron 30 mg] 30 mg PO BID 08/01/20 [History] haloperidoL [Haloperidol] 10 mg PO TID 08/01/20 [History] Hx Tetanus, Diphtheria Vaccination/Date Given: Yes Hx Influenza Vaccination/Date Given: Yes Hx Pneumococcal Vaccination/Date Given: Yes Immunizations Up to Date: Yes Travel Risk - International Travel Have you traveled outside of the country in past 3 weeks: No - Coronavirus Screening Are you exhibiting any of the following symptoms?: No - Vaccine Status Have you recieved a Covid-19 vaccination: Yes Hand Nailer: Moderna - Vaccination Dates Date of 2cond Vaccination (if applicable): 2020 - Review of Systems Constitutional: No Symptoms, No Fever, No Chills Eyes: No Symptoms Ears, Nose, & Throat: No Symptoms Respiratory: No Symptoms, No Cough, No Dyspnea Cardiac: No Symptoms, No Chest Pain, No Edema, No Syncope Abdominal/Gastrointestinal: No Symptoms, No Abdominal Pain, No Nausea, No Vomiting, No Diarrhea Genitourinary Symptoms: No Symptoms, No Dysuria Musculoskeletal: No Symptoms, No Back Pain, No Neck Pain Skin: No Symptoms, No Rash Neurological: No Symptoms, No Dizziness, No Focal Weakness, No Sensory Changes Psychological: No Symptoms Endocrine: No Symptoms Hematologic/Lymphatic: No Symptoms Immunological/Allergic: No Symptoms All Other Systems: Reviewed and Negative - Past Medical History Pertinent Past Medical History: Yes Neurological History: Other ENT History: Other Cardiac History: Arrhythmia, High Cholesterol, Hypertension Respiratory History: Other Endocrine Medical History: Diabetes Type II, Hypothyroidism Musculoskeletal History: Fractures GI Medical History: Diverticulosis, GERD, Gallbladder Disease History: No Pertinent History Psycho-Social History: Anxiety, Bipolar, Depression, Other Female Reproductive Disorders: Fibroids Other Medical History: PATIENT REPORTS HX OF COVID BUT ASYMPTOMATIC, IS VACCINATED FOR COVID. ALSO REPORTS "DON'T BREATH DEEP ENOUGH" SO USES NEBULIZER EVERY DAY. HX FX RIGHT TIBIA WITH ORIF AT AGE 15, SURGERY RIGHT GREAT TOE FOR HALLUX VALGUS 5 YEARS AGO. - Past Surgical History Past Surgical History: Yes Neuro Surgical History: No Pertinent History Cardiac: No Pertinent History Respiratory: No Pertinent History Gastrointestinal: Cholecystectomy Genitourinary: No Pertinent History Musculoskeletal: Other Female Surgical History: Hysterectomy, Section Other Surgical History: surgery right foot pins/toes,right knee "rebuilt"-screw in place, fareed hands neuro/nerve surgeries,right wrist x two cyst removed and bone reconstruction,left wrist also,right eye-[place] removed ?, x two, back surgery - Social History Smoking Status: Former smoker How long have you smoked: 12 Exposure to second hand smoke: Yes Drug Use: none Patient Lives Alone: No - Nursing Vital Signs Nursing Vital Signs: Initial Vital Signs Temperature 97.8 F 12/17/21 16:13 Pulse Rate 84 12/17/21 16:13 Respiratory Rate 20 12/17/21 16:13 Blood Pressure 105/75 12/17/21 16:13 O2 Sat by Pulse Oximetry 98 12/17/21 16:13 Pain Scale Pain Intensity 0 - Physical Exam General Appearance: no apparent distress, alert Eye Exam: PERRL/EOMI, eyes nml inspection Ears, Nose, Throat Exam: normal ENT inspection, TMs normal, pharynx normal, moist mucous membranes Neck Exam: normal inspection, non-tender, supple, full range of motion Respiratory Exam: normal breath sounds, lungs clear, airway intact, No respiratory distress Cardiovascular Exam: regular rate/rhythm, normal heart sounds, normal peripheral pulses Gastrointestinal/Abdomen Exam: soft, normal bowel sounds, No tenderness, No mass Back Exam: normal inspection, normal range of motion, No CVA tenderness, No vertebral tenderness Extremity Exam: normal inspection, normal range of motion, pelvis stable Neurologic Exam: alert, oriented x 3, cooperative, normal mood/affect, nml cerebellar function, nml station & gait, sensation nml, No motor deficits Skin Exam: normal color, warm, dry, No rash Lymphatic Exam: No adenopathy SpO2 Interpretation: normal SpO2: 98 O2 Delivery: Room Air - Course Nursing assessment & vital signs reviewed: Yes EKG Interpreted by Me: RATE ([id number]), Sinus Rhythm, NORMAL AXIS, NORMAL INTERVALS Ordered Tests: Active Orders 24 hr Category Date Time Status Safety Belt Installer STAT Care 12/17/21 16:29 Active EKG-ER Only STAT Care 12/17/21 16:28 Active IV Insertion STAT Care 12/17/21 16:28 Active Pulse Oximetry (ED) STAT Care 12/17/21 16:28 Active CBC W DIFF Stat Lab 12/17/21 16:50 Completed CMP Stat Lab 12/17/21 16:50 Completed POCT GLUCOSE Stat Lab 12/17/21 16:11 Completed TROPONIN Q4H Lab 12/17/21 16:50 Completed TROPONIN Q4H Lab 12/17/21 20:30 Ordered TROPONIN Q4H Lab 12/18/21 00:30 Ordered TSH [TSH, 3RD Generation] Stat Lab 12/17/21 16:50 Completed UA W/RFX CULTURE Stat Lab 12/17/21 17:25 Ordered Medication Summary Discontinued Medications Generic Name Dose Route Start Last Admin Trade Name Yoniq PRN Reason Stop Dose Admin Lorazepam 0.5 mg 12/17/21 17:38 12/17/21 18:02 Lorazepam 2 Mg/1 Ml 2 Mg Vial IM 12/17/21 17:39 0.5 mg STAT ONE Administration Lorazepam Confirm 12/17/21 17:57 Lorazepam 2 Mg/1 Ml 2 Mg Vial Administered 12/17/21 17:58 Dose 2 mg .ROUTE .STK-MED ONE Potassium Chloride 40 meq 12/17/21 17:11 12/17/21 17:33 Potassium Chloride Tab 10 Meq Tab PO 12/17/21 17:12 40 meq STAT ONE Administration Potassium Chloride Confirm 12/17/21 17:28 Potassium Chloride Tab 10 Meq Tab Administered 12/17/21 17:29 Dose 40 meq PO .STK-MED ONE Lab/Rad Data: Laboratory Result Diagrams 12/17/21 16:50 12/17/21 16:50 Laboratory Results 12/17/21 12/17/21 12/17/21 Range/Units 16:50 16:50 16:50 WBC (4.0-10.5) x10^3/uL RBC (4.1-5.4) x10^6/uL Hgb (12.0-16.0) g/dL Hct (35-47) % MCV (78-100) fL MCH (26-32) pg MCHC (32-36) g/dL RDW (11.5-14.0) % Plt Count (150-450) x10^3/uL MPV (7.5-11.0) fL Gran % (36.0-66.0) % Immature Gran % (Auto) (0.00-0.4) % Nucleat RBC Rel Count (0.00-0.1) % Eos # (Auto) (0-0.5) x10^3/uL Immature Gran # (Auto) (0.00-0.03) x10^3u/L Absolute Lymphs (auto) (1.0-4.6) x10^3/uL Absolute Monos (auto) (0.0-1.3) x10^3/uL Absolute Nucleated RBC (0.00-0.01) x10^3u/L Lymphocytes % (24.0-44.0) % Monocytes % (0.0-12.0) % Eosinophils % (0.00-5.0) % Basophils % (0.0-0.4) % Absolute Granulocytes (1.4-6.9) x10^3/uL Basophils # (0-0.4) x10^3/uL Sodium 139 (137-145) mmol/L Potassium 3.2 L (3.5-5.1) mmol/L Chloride 96 L (98-107) mmol/L Carbon Dioxide 35 H (22-30) mmol/L Anion Gap 11.4 (5-15) MEQ/L BUN 9 (7-17) mg/dL Creatinine 0.82 (0.52-1.04) mg/dL Estimated GFR > 60.0 ML/MIN Glucose 144 H (74-106) mg/dL POC Glucometer (74 to 106) mg/dL Calcium 8.7 (8.4-10.2) mg/dL Total Bilirubin 0.30 (0.2-1.3) mg/dL AST 22 (14-36) U/L ALT 20 (0-35) U/L Alkaline Phosphatase 125 (38-126) U/L Troponin I < 0.012 (0.000-0.034) ng/mL Serum Total Protein 6.6 (6.3-8.2) g/dL Albumin 3.9 (3.5-5.0) g/dL TSH 3rd Generation 1.060 (0.47-4.68) mIU/L Slides for Path Review 12/17/21 12/17/21 Range/Units 16:50 16:11 WBC 9.6 (4.0-10.5) x10^3/uL RBC 4.94 (4.1-5.4) x10^6/uL Hgb 11.0 L (12.0-16.0) g/dL Hct 38.7 (35-47) % MCV 78.3 (78-100) fL MCH 22.3 L (26-32) pg MCHC 28.4 L (32-36) g/dL RDW 17.5 H (11.5-14.0) % Plt Count 258 (150-450) x10^3/uL MPV 10.7 (7.5-11.0) fL Gran % 66.7 H (36.0-66.0) % Immature Gran % (Auto) 0.4 (0.00-0.4) % Nucleat RBC Rel Count 0.0 (0.00-0.1) % Eos # (Auto) 0.17 (0-0.5) x10^3/uL Immature Gran # (Auto) 0.04 H (0.00-0.03) x10^3u/L Absolute Lymphs (auto) 2.28 (1.0-4.6) x10^3/uL Absolute Monos (auto) 0.70 (0.0-1.3) x10^3/uL Absolute Nucleated RBC 0.00 (0.00-0.01) x10^3u/L Lymphocytes % 23.7 L (24.0-44.0) % Monocytes % 7.3 (0.0-12.0) % Eosinophils % 1.8 (0.00-5.0) % Basophils % 0.1 (0.0-0.4) % Absolute Granulocytes 6.41 (1.4-6.9) x10^3/uL Basophils # 0.01 (0-0.4) x10^3/uL Sodium (137-145) mmol/L Potassium (3.5-5.1) mmol/L Chloride (98-107) mmol/L Carbon Dioxide (22-30) mmol/L Anion Gap (5-15) MEQ/L BUN (7-17) mg/dL Creatinine (0.52-1.04) mg/dL Estimated GFR ML/MIN Glucose (74-106) mg/dL POC Glucometer 155 H (74 to 106) mg/dL Calcium (8.4-10.2) mg/dL Total Bilirubin (0.2-1.3) mg/dL AST (14-36) U/L ALT (0-35) U/L Alkaline Phosphatase (38-126) U/L Troponin I (0.000-0.034) ng/mL Serum Total Protein (6.3-8.2) g/dL Albumin (3.5-5.0) g/dL TSH 3rd Generation (0.47-4.68) mIU/L Slides for Path Review YES - Progress Progress: improved Progress Note: Patient reassessed. Symptoms significantly improved after administration of Ativan. Work-up reveals a mild hypokalemia. Potassium replaced orally. Patient refused an IV. TSH normal. EKG normal sinus rhythm. Troponin negative. Vitals within normal limits. Will discharge home. Patient voices no other complaints or concerns at this time. Portions of this note were created with voice recognition technology. There may be grammatical, spelling, punctuation or sound alike errors 12/17/21 18:22 Counseled pt/family regarding: diagnosis, need for follow-up - Departure Departure Disposition: Home Clinical Impression: Hypokalemia, Anxiety Condition: Stable Critical Care Time: No Referrals: OMAR BENSON MD [Primary Care Provider] - Follow up/PCP as directed
[2021-12-17 16:51] LABS: Absolute Neutrophil Ct (ANC) 6.41 x10^3/uL (1.4-6.9); Basophil (Absolute #) 0.01 x10^3/uL (0-0.4); Eosinophil % 1.8 % (0.00-5.0); Eosinophil (Absolute #) 0.17 x10^3/uL (0-0.5); Hematocrit 38.7 % (35-47); Lymphocyte (Absolute #) 2.28 x10^3/uL (1.0-4.6); Lymphocytes % 23.7 % (24.0-44.0); Mean Cell Volume 78.3 fL (78-100); Mean Corpuscular Hemoglobin 22.3 pg (26-32); Mean Corpuscular Hgb Concent. 28.4 g/dL (32-36); Mean Platelet Volume 10.7 fL (7.5-11.0); Monocytes % 7.3 % (0.0-12.0); Neutrophil % 66.7 % (36.0-66.0); Platelet Count 258 x10^3/uL (150-450); Red Blood Count 4.94 x10^6/uL (4.1-5.4); Red Cell Distribution Width 17.5 % (11.5-14.0); White Blood Count 9.6 x10^3/uL (4.0-10.5)
[2021-12-17 17:08] LABS: ALBUMIN 3.9 g/dL (3.5-5.0); ALKALINE PHOSPHATASE 125 U/L (38-126); ANION GAP 11.4 MEQ/L (5-15); BLOOD UREA NITROGEN 9 mg/dL (7-17); CHLORIDE 96 mmol/L (98-107); Calcium 8.7 mg/dL (8.4-10.2); Carbon Dioxide 35 mmol/L (22-30); Creatinine 1 0.82 mg/dL (0.52-1.04); EST GLOMERULAR FILTRATION RATE > 60.0 ML/MIN; Glucose 144 mg/dL (74-106); Potassium 3.2 mmol/L (3.5-5.1); SGOT/AST 22 U/L (14-36); SGPT/ALT 20 U/L (0-35); SODIUM 139 mmol/L (137-145); Total Protein 6.6 g/dL (6.3-8.2)
[2021-12-17] MEDS ORDERED: Klor Con PO ONE ×2 (17:11→17:28)
[2021-12-17] MEDS ORDERED: Ativan 2 MG/1 ML VIAL IM ONE (17:38)
[2021-12-17 17:57] VITALS: O2SAT 98
[2021-12-17] MEDS ORDERED: Ativan 2 MG/1 ML VIAL ONE (17:57)
[2021-12-17 17:58] LABS: Slide Review 1 YES
[2021-12-17 18:34] VITALS: BP 127/75; PULSE 84
[2021-12-17 19:51] LABS: Appearance CLEAR (CLEAR); Bilirubin NEGATIVE (NEGATIVE); Glucose NEGATIVE (NEGATIVE); Ketones NEGATIVE (NEGATIVE); Nitrite NEGATIVE (NEGATIVE); Protein,Urine Dip NEGATIVE (Negative); RBC NEGATIVE Ery/ul (0-5); Urobilinogen 0.2 mg/dL (0-1)
[2021-12-17 19:52] LABS: Dipstick done @ ? MAIN LAB
[2021-12-17 19:55] LABS: Urine Cultured Indicated? YES
== END 2021-12-17 19:04 | disposition home or self-care (01) ==
LOC: ED 16:05
DX: F41.9 Anxiety disorder, unspecified (principal); E87.6 Hypokalemia; F51.02 Adjustment insomnia; R20.2 Paresthesia of skin; E78.5 Hyperlipidemia, unspecified; I10 Essential (primary) hypertension; E11.9 Type 2 diabetes mellitus without complications; Z86.16 Personal history of COVID-19; Z79.4 Long term (current) use of insulin; Z79.899 Other long term (current) drug therapy
CPT/HCPCS: 36415; 80053; 81015; 82947; 84443; 84484; 85025; 87086; 93005; 93041; 94760; 96372; 99284; J2060; A9270-GY

== ENCOUNTER 2022-02-08 22:34 | Emergency (ER) | payer MEDICARE ==
--- NOTE | 2022-02-08 22:52 | ERPHSYRPT ---
- History of Present Illness Time Seen by Provider: 02/08/22 22:52 Source: patient Exam Limitations: no limitations Physician History: This is a morbidly obese 56-year-old white female who is on potassium supplementation chronically. Patient took her medication today. On 02/05/2022 her potassium level was 3.6 which is normal. Patient states that she knows her body well and knows when her potassium is low. She states approximately 45 minutes to an hour prior to arrival she started having pain in both of her legs generally. She has not been vomiting. She has had no diarrhea. She has no specific calf pain. She does have a history in the distant past of DVT but is no longer taking anticoagulant therapy. She was told she no longer required that type of therapy. Patient has a history of hypertension, diabetes, hypothyroidism, anxiety and bipolar psychiatric issues. Occurred: hours ago (1) Quality: aching (Generalized bilateral lower extremity) Severity of Pain-Max: mild Severity of Pain-Current: mild Lower Extremities Pain: leg: bilateral, knee: bilateral, foot: bilateral, ankle: bilateral Modifying Factors: Improves With: nothing Associated Symptoms: none Allergies/Adverse Reactions: famotidine [From Pepcid] Allergy (Severe, Verified 06/25/21 17:28) Vomiting insulin lispro [From Humalog] Allergy (Severe, Verified 06/25/21 17:28) Anaphylactic Reaction potassium chloride Allergy (Severe, Verified 06/25/21 17:28) Swelling of Tongue and Lips liquid potassium caused tongue swelling. pt takes tablets without issue propranolol [From Inderal LA] Allergy (Severe, Verified 06/25/21 17:28) Anaphylactic Reaction sumatriptan [From Imitrex] Allergy (Severe, Verified 06/25/21 17:28) Anaphylactic Reaction sumatriptan succinate [From Imitrex] Allergy (Severe, Verified 06/25/21 17:28) Anaphylactic Reaction procaine [From Novocain] Allergy (Intermediate, Verified 06/25/21 17:28) Swelling zolpidem [From Ambien] Allergy (Verified 06/25/21 17:28) Home Medications: Albuterol Sulfate [Proair Respiclick] 90 mcg IH QID 11/04/18 [History] Ascorbic Acid 500 mg [Vitamin C 500 MG] 500 mg PO DAILY 11/04/18 [History] Aspirin EC 81 mg [Ecotrin 81 mg] 81 mg PO DAILY 11/04/18 [History] Carvedilol 3.125 mg [Coreg 3.125 MG] 3.125 mg PO BID 11/04/18 [History] Cyanocobalamin (Vitamin B-12) [Vitamin B-12] 500 mcg PO DAILY 11/04/18 [History] Duloxetine HCl 30 mg [Cymbalta 30 MG Capsule] 60 mg PO DAILY 11/04/18 [History] Ergocalciferol (Vitamin D2) [Drisdol] 50,000 unit PO WEEKLY 11/04/18 [History] Esomeprazole Magnesium [Nexium] 40 mg PO DAILY 11/04/18 [History] Furosemide 20 mg [Lasix 20 mg] 20 mg PO BID 11/04/18 [History] Glimepiride 4 mg [Amaryl 4 mg] 4 mg PO BID 11/04/18 [History] Insulin Aspart Prot/Insuln Asp [Novolog Mix 70-30 Flexpen Syrn] 25 unit SQ TID 11/04/18 [History] Levothyroxine Sodium 75 Mcg [Synthroid 75 Mcg] 75 mcg PO DAILY 11/04/18 [History] Lipase/Protease/Amylase [[place] Dr 24,000 Units Capsule] 2 each PO QID 11/04/18 [History] Loxapine Succinate [Loxapine] 10 mg PO BID 11/04/18 [History] Metoclopramide HCl 5 mg PO HS 11/04/18 [History] Montelukast Sodium 10 mg [Singulair 10 MG] 10 mg PO DAILY 11/04/18 [History] Oxycodone HCl/Acetaminophen [Percocet 5-325 mg Tablet] 1 each PO TID 11/04/18 [History] Pioglitazone 30 mg [Actos 30 MG] 30 mg PO DAILY 11/04/18 [History] Polyethylene Glycol 3350 17 gm [Miralax Powder 17GM PACKET] 17 gm PO DAILY PRN PRN 11/04/18 [History] Potassium Chloride Tab* [Klor Con 10 MEQ] 10 meq PO TID 11/04/18 [History] Promethazine HCl 12.5 mg PO HS PRN PRN 11/04/18 [History] Topiramate 100 mg PO HS 11/04/18 [History] Apremilast [Otezla] 1 each PO BID 08/01/20 [History] Cyclobenzaprine HCl 10 mg [Cyclobenzaprine 10 MG] 10 mg PO BID 08/01/20 [History] Gabapentin [Neurontin 300 mg] 300 mg PO TID 08/01/20 [History] Glucagon,Human Recombinant [Glucagen] 1 mg IJ UD 08/01/20 [History] Levocetirizine Dihydrochloride 5 mg PO BID 08/01/20 [History] Losartan Potassium [Cozaar] 25 mg PO BID 08/01/20 [History] Mirtazapine 30 mg [Remeron 30 mg] 30 mg PO BID 08/01/20 [History] haloperidoL [Haloperidol] 10 mg PO TID 08/01/20 [History] Hx Tetanus, Diphtheria Vaccination/Date Given: Yes Hx Influenza Vaccination/Date Given: Yes Hx Pneumococcal Vaccination/Date Given: Yes Travel Risk - International Travel Have you traveled outside of the country in past 3 weeks: No - Coronavirus Screening Are you exhibiting any of the following symptoms?: No Close contact with a COVID-19 positive Pt in past 14-21 Days: No - Vaccine Status Have you recieved a Covid-19 vaccination: Yes Vamp Presser: Moderna - Vaccination Dates Date of 2cond Vaccination (if applicable): 2020 - Review of Systems Constitutional: No Symptoms Eyes: No Symptoms Ears, Nose, & Throat: No Symptoms Respiratory: No Symptoms Cardiac: No Symptoms Abdominal/Gastrointestinal: No Symptoms Genitourinary Symptoms: No Symptoms Musculoskeletal: Other (Bilateral lower extremity pain) Skin: No Symptoms Neurological: No Symptoms Psychological: No Symptoms Endocrine: No Symptoms Hematologic/Lymphatic: No Symptoms Immunological/Allergic: No Symptoms All Other Systems: Reviewed and Negative - Past Medical History Pertinent Past Medical History: Yes Neurological History: Other ENT History: Other Cardiac History: Arrhythmia, High Cholesterol, Hypertension Respiratory History: Other Endocrine Medical History: Diabetes Type II, Hypothyroidism Musculoskeletal History: Fractures GI Medical History: Diverticulosis, GERD, Gallbladder Disease History: No Pertinent History Psycho-Social History: Anxiety, Bipolar, Depression, Other Female Reproductive Disorders: Fibroids Other Medical History: PATIENT REPORTS HX OF COVID BUT ASYMPTOMATIC, IS VACCINATED FOR COVID. ALSO REPORTS "DON'T BREATH DEEP ENOUGH" SO USES NEBULIZER EVERY DAY. HX FX RIGHT TIBIA WITH ORIF AT AGE 15, SURGERY RIGHT GREAT TOE FOR HALLUX VALGUS 5 YEARS AGO. - Past Surgical History Past Surgical History: Yes Neuro Surgical History: No Pertinent History Cardiac: No Pertinent History Respiratory: No Pertinent History Gastrointestinal: Cholecystectomy Genitourinary: No Pertinent History Musculoskeletal: Other Female Surgical History: Hysterectomy, Section Other Surgical History: surgery right foot pins/toes,right knee "rebuilt"-screw in place, fareed hands neuro/nerve surgeries,right wrist x two cyst removed and bone reconstruction,left wrist also,right eye-[place] removed ?, x two, back surgery - Social History Smoking Status: Former smoker How long have you smoked: 12 Exposure to second hand smoke: Yes Drug Use: none Patient Lives Alone: No - Nursing Vital Signs Nursing Vital Signs: Initial Vital Signs Temperature 98.2 F 02/08/22 22:42 Pulse Rate 83 02/08/22 22:42 Respiratory Rate 18 02/08/22 22:42 Blood Pressure 131/82 02/08/22 22:42 O2 Sat by Pulse Oximetry 97 02/08/22 22:42 Pain Scale Pain Intensity 8 - Physical Exam General Appearance: no apparent distress, alert, anxiety, obese Eyes, Ears, Nose, Throat Exam: normal ENT inspection, moist mucous membranes Neck Exam: normal inspection, non-tender, supple, full range of motion Cardiovascular/Respiratory Exam: chest non-tender, no respiratory distress Gastrointestinal/Abdominal Exam: non-tender Back Exam: normal inspection, normal range of motion, No CVA tenderness, No vert ebral tenderness Hips Exam: bilateral: non-tender, normal inspection, normal range of motion, no evidence of injury Legs Exam: bilateral leg: normal inspection, normal range of motion, no evidence of injury, soft tissue tenderness Knees Exam: bilateral knee: non-tender, normal inspection, normal range of motion, no evidence of injury Ankle Exam: bilateral ankle: normal inspection, normal range of motion, no evidence of injury, soft tissue tenderness Foot Exam: bilateral foot: normal inspection, normal range of motion, no evidence of injury, soft tissue tenderness Neuro/Tendon Exam: normal sensation, normal motor functions, normal tendon funct ions, no evidence tendon injury Mental Status Exam: alert, oriented x 3, cooperative Skin Exam: normal color, warm, dry SpO2 Interpretation: normal O2 Delivery: Room Air - Course Nursing assessment & vital signs reviewed: Yes Ordered Tests: Active Orders 24 hr Category Date Time Status IV Insertion STAT Care 02/08/22 23:07 Active BMP Stat Lab 02/08/22 23:05 Completed MAGNESIUM Stat Lab 02/08/22 23:05 Completed Lab/Rad Data: Laboratory Result Diagrams 02/08/22 23:05 Laboratory Results 02/08/22 Range/Units 23:05 Sodium 136 L (137-145) mmol/L Potassium 4.2 (3.5-5.1) mmol/L Chloride 96 L (98-107) mmol/L Carbon Dioxide 33 H (22-30) mmol/L Anion Gap 10.9 (5-15) MEQ/L BUN 13 (7-17) mg/dL Creatinine 0.63 (0.52-1.04) mg/dL Estimated GFR > 60.0 ML/MIN Glucose 176 H (74-106) mg/dL Calcium 8.7 (8.4-10.2) mg/dL Magnesium 1.9 (1.6-2.3) mg/dL - Progress Progress: unchanged Progress Note: 02/08/22 23:44 Patient states she is only concerned that her potassium level was low. Now that she realizes her potassium, magnesium and kidney function are all normal she is ready to go home. She does not desire any further work-up. Counseled pt/family regarding: lab results, diagnosis, need for follow-up - Departure Departure Disposition: Home Clinical Impression: Chronic leg pain Condition: Stable Critical Care Time: No Referrals: OMAR BENSON MD [Primary Care Provider] - Follow up/PCP as directed
[2022-02-08 22:55] VITALS: BP 131/82
[2022-02-08 23:27] LABS: ANION GAP 10.9 MEQ/L (5-15); BLOOD UREA NITROGEN 13 mg/dL (7-17); CHLORIDE 96 mmol/L (98-107); Calcium 8.7 mg/dL (8.4-10.2); Carbon Dioxide 33 mmol/L (22-30); Creatinine 1 0.63 mg/dL (0.52-1.04); EST GLOMERULAR FILTRATION RATE > 60.0 ML/MIN; Glucose 176 mg/dL (74-106); MAGNESIUM 1.9 mg/dL (1.6-2.3); Potassium 4.2 mmol/L (3.5-5.1); SODIUM 136 mmol/L (137-145)
[2022-02-08 23:49] VITALS: PULSE 89; O2SAT 95
== END 2022-02-08 23:57 | disposition home or self-care (01) ==
LOC: ED 22:34
DX: G89.29 Other chronic pain (principal); M79.604 Pain in right leg; M79.605 Pain in left leg; I10 Essential (primary) hypertension; E11.9 Type 2 diabetes mellitus without complications; E78.5 Hyperlipidemia, unspecified; Z79.4 Long term (current) use of insulin; Z79.84 Long term (current) use of oral hypoglycemic drugs; Z79.899 Other long term (current) drug therapy
CPT/HCPCS: 36000; 36415; 80048; 83735; 99283

== ENCOUNTER 2022-02-22 02:42 | Emergency (ER) | payer MEDICARE ==
[2022-02-22 02:56] VITALS: O2SAT 98
[2022-02-22 03:17] LABS: Absolute Neutrophil Ct (ANC) 6.31 x10^3/uL (1.4-6.9); Basophil (Absolute #) 0.02 x10^3/uL (0-0.4); Eosinophil % 1.9 % (0.00-5.0); Eosinophil (Absolute #) 0.19 x10^3/uL (0-0.5); Hematocrit 36.4 % (35-47); Hemoglobin 10.6 g/dL (12.0-16.0); Lymphocyte (Absolute #) 2.72 x10^3/uL (1.0-4.6); Lymphocytes % 26.9 % (24.0-44.0); Mean Cell Volume 77.6 fL (78-100); Mean Corpuscular Hemoglobin 22.6 pg (26-32); Mean Corpuscular Hgb Concent. 29.1 g/dL (32-36); Mean Platelet Volume 11.1 fL (7.5-11.0); Monocyte (Absolute #) 0.86 x10^3/uL (0.0-1.3); Monocytes % 8.5 % (0.0-12.0); Neutrophil % 62.3 % (36.0-66.0); Platelet Count 204 x10^3/uL (150-450); Red Blood Count 4.69 x10^6/uL (4.1-5.4); Red Cell Distribution Width 17.1 % (11.5-14.0); White Blood Count 10.1 x10^3/uL (4.0-10.5)
[2022-02-22 03:27] LABS: ALBUMIN 3.8 g/dL (3.5-5.0); ALKALINE PHOSPHATASE 137 U/L (38-126); ANION GAP 10.7 MEQ/L (5-15); BLOOD UREA NITROGEN 10 mg/dL (7-17); CHLORIDE 99 mmol/L (98-107); Calcium 8.7 mg/dL (8.4-10.2); Carbon Dioxide 29 mmol/L (22-30); Creatinine 1 0.65 mg/dL (0.52-1.04); EST GLOMERULAR FILTRATION RATE > 60.0 ML/MIN; Glucose 202 mg/dL (74-106); MAGNESIUM 1.9 mg/dL (1.6-2.3); Potassium 3.8 mmol/L (3.5-5.1); SGOT/AST 22 U/L (14-36); SGPT/ALT 21 U/L (0-35); SODIUM 135 mmol/L (137-145); Total Protein 6.5 g/dL (6.3-8.2)
--- NOTE | 2022-02-22 03:43 | ERPHSYRPT ---
- History of Present Illness Time Seen by Provider: 02/22/22 02:55 Source: patient Exam Limitations: no limitations Patient Subjective Stated Complaint: pt states "I think my potassium is low. My legs are cramping" Triage Nursing Assessment: Pt ambulatory to bed from wheelchair by self, pt alert and oriented x3, pt c/o bilateral leg cramping since 2129, pt states "I think my potassium is low. my legs hurt. I ate 3 bananas before I left home." Pt states her PCP increased her potassium 20 mEq TID Physician History: Patient is a 56-year-old white female presents with a concern that her potassium might be low. She has a history of visits to the ER because of leg cramping etc. She comes in requesting a potassium check. Timing/Duration: today Severity: mild Associated Symptoms: denies symptoms Allergies/Adverse Reactions: famotidine [From Pepcid] Allergy (Severe, Verified 02/22/22 02:49) Vomiting insulin lispro [From Humalog] Allergy (Severe, Verified 02/22/22 02:49) Anaphylactic Reaction potassium chloride Allergy (Severe, Verified 02/22/22 02:49) Swelling of Tongue and Lips liquid potassium caused tongue swelling. pt takes tablets without issue propranolol [From Inderal LA] Allergy (Severe, Verified 02/22/22 02:49) Anaphylactic Reaction sumatriptan [From Imitrex] Allergy (Severe, Verified 02/22/22 02:49) Anaphylactic Reaction sumatriptan succinate [From Imitrex] Allergy (Severe, Verified 02/22/22 02:49) Anaphylactic Reaction procaine [From Novocain] Allergy (Intermediate, Verified 02/22/22 02:49) Swelling zolpidem [From Ambien] Allergy (Verified 02/22/22 02:49) Home Medications: Albuterol Sulfate [Proair Respiclick] 90 mcg IH QID 11/04/18 [History] Ascorbic Acid 500 mg [Vitamin C 500 MG] 500 mg PO DAILY 11/04/18 [History] Aspirin EC 81 mg [Ecotrin 81 mg] 81 mg PO DAILY 11/04/18 [History] Carvedilol 3.125 mg [Coreg 3.125 MG] 3.125 mg PO BID 11/04/18 [History] Cyanocobalamin (Vitamin B-12) [Vitamin B-12] 500 mcg PO DAILY 11/04/18 [History] Duloxetine HCl 30 mg [Cymbalta 30 MG Capsule] 60 mg PO DAILY 11/04/18 [History] Ergocalciferol (Vitamin D2) [Drisdol] 50,000 unit PO WEEKLY 11/04/18 [History] Esomeprazole Magnesium [Nexium] 40 mg PO DAILY 11/04/18 [History] Furosemide 20 mg [Lasix 20 mg] 20 mg PO BID 11/04/18 [History] Glimepiride 4 mg [Amaryl 4 mg] 4 mg PO BID 11/04/18 [History] Insulin Aspart Prot/Insuln Asp [Novolog Mix 70-30 Flexpen Syrn] 25 unit SQ TID 11/04/18 [History] Levothyroxine Sodium 75 Mcg [Synthroid 75 Mcg] 75 mcg PO DAILY 11/04/18 [History] Lipase/Protease/Amylase [[place] Dr 24,000 Units Capsule] 2 each PO QID 11/04/18 [History] Loxapine Succinate [Loxapine] 10 mg PO BID 11/04/18 [History] Metoclopramide HCl 5 mg PO HS 11/04/18 [History] Montelukast Sodium 10 mg [Singulair 10 MG] 10 mg PO DAILY 11/04/18 [History] Oxycodone HCl/Acetaminophen [Percocet 5-325 mg Tablet] 1 each PO TID 11/04/18 [History] Pioglitazone 30 mg [Actos 30 MG] 30 mg PO DAILY 11/04/18 [History] Polyethylene Glycol 3350 17 gm [Miralax Powder 17GM PACKET] 17 gm PO DAILY PRN PRN 11/04/18 [History] Potassium Chloride Tab* [Klor Con 10 MEQ] 10 meq PO TID 11/04/18 [History] Promethazine HCl 12.5 mg PO HS PRN PRN 11/04/18 [History] Topiramate 100 mg PO HS 11/04/18 [History] Apremilast [Otezla] 1 each PO BID 08/01/20 [History] Cyclobenzaprine HCl 10 mg [Cyclobenzaprine 10 MG] 10 mg PO BID 08/01/20 [History] Gabapentin [Neurontin 300 mg] 300 mg PO TID 08/01/20 [History] Glucagon,Human Recombinant [Glucagen] 1 mg IJ UD 08/01/20 [History] Levocetirizine Dihydrochloride 5 mg PO BID 08/01/20 [History] Losartan Potassium [Cozaar] 25 mg PO BID 08/01/20 [History] Mirtazapine 30 mg [Remeron 30 mg] 30 mg PO BID 08/01/20 [History] haloperidoL [Haloperidol] 10 mg PO TID 08/01/20 [History] Hx Tetanus, Diphtheria Vaccination/Date Given: Yes Hx Influenza Vaccination/Date Given: Yes Hx Pneumococcal Vaccination/Date Given: Yes Immunizations Up to Date: Yes Travel Risk - International Travel Have you traveled outside of the country in past 3 weeks: No - Coronavirus Screening Are you exhibiting any of the following symptoms?: No Close contact with a COVID-19 positive Pt in past 14-21 Days: No - Vaccine Status Have you recieved a Covid-19 vaccination: Yes Cage Supervisor: Moderna - Vaccination Dates Date of 2cond Vaccination (if applicable): 2020 - Review of Systems Constitutional: No Fever, No Chills Eyes: No Symptoms Ears, Nose, & Throat: No Symptoms Respiratory: No Cough, No Dyspnea Cardiac: No Chest Pain, No Edema, No Syncope Abdominal/Gastrointestinal: No Abdominal Pain, No Nausea, No Vomiting, No Diarrhea Genitourinary Symptoms: No Dysuria Musculoskeletal: Myalgias, No Back Pain, No Neck Pain Skin: No Rash Neurological: No Dizziness, No Focal Weakness, No Sensory Changes Psychological: No Symptoms Endocrine: No Symptoms All Other Systems: Reviewed and Negative - Past Medical History Pertinent Past Medical History: Yes Neurological History: Other ENT History: Other Cardiac History: Arrhythmia, High Cholesterol, Hypertension Respiratory History: Other Endocrine Medical History: Diabetes Type II, Hypothyroidism Musculoskeletal History: Fractures GI Medical History: Diverticulosis, GERD, Gallbladder Disease History: No Pertinent History Psycho-Social History: Anxiety, Bipolar, Depression, Other Female Reproductive Disorders: Fibroids Other Medical History: PATIENT REPORTS HX OF COVID BUT ASYMPTOMATIC, IS VACCINATED FOR COVID. ALSO REPORTS "DON'T BREATH DEEP ENOUGH" SO USES NEBULIZER EVERY DAY. HX FX RIGHT TIBIA WITH ORIF AT AGE 15, SURGERY RIGHT GREAT TOE FOR HALLUX VALGUS 5 YEARS AGO. - Past Surgical History Past Surgical History: Yes Neuro Surgical History: No Pertinent History Cardiac: No Pertinent History Respiratory: No Pertinent History Gastrointestinal: Cholecystectomy Genitourinary: No Pertinent History Musculoskeletal: Other Female Surgical History: Hysterectomy, Section Other Surgical History: surgery right foot pins/toes,right knee "rebuilt"-screw in place, fareed hands neuro/nerve surgeries,right wrist x two cyst removed and bone reconstruction,left wrist also,right eye-[place] removed ?, x two, back surgery - Social History Smoking Status: Former smoker How long have you smoked: 12 Exposure to second hand smoke: Yes Drug Use: none Patient Lives Alone: No - Nursing Vital Signs Nursing Vital Signs: Initial Vital Signs Temperature 97.5 F 02/22/22 02:49 Pulse Rate 82 02/22/22 02:49 Respiratory Rate 18 02/22/22 02:49 Blood Pressure 123/75 02/22/22 02:49 O2 Sat by Pulse Oximetry 98 02/22/22 02:49 Pain Scale Pain Intensity 8 - Physical Exam General Appearance: no apparent distress, alert Eye Exam: PERRL/EOMI, eyes nml inspection Ears, Nose, Throat Exam: normal ENT inspection, TMs normal, pharynx normal, moist mucous membranes Neck Exam: normal inspection, non-tender, supple, full range of motion Respiratory Exam: normal breath sounds, lungs clear, No respiratory distress Cardiovascular Exam: regular rate/rhythm, normal heart sounds, normal peripheral pulses Gastrointestinal/Abdomen Exam: soft, normal bowel sounds, No tenderness, No mass Back Exam: normal inspection, normal range of motion, No CVA tenderness, No vertebral tenderness Extremity Exam: normal inspection, normal range of motion, pelvis stable Neurologic Exam: alert, oriented x 3, cooperative, normal mood/affect, nml cerebellar function, nml station & gait, sensation nml, No motor deficits Skin Exam: normal color, warm, dry, No rash Lymphatic Exam: No adenopathy SpO2: 98 - Course Nursing assessment & vital signs reviewed: Yes Ordered Tests: Active Orders 24 hr Category Date Time Status CBC W DIFF Stat Lab 02/22/22 03:16 Completed CMP Stat Lab 02/22/22 03:16 Completed MAGNESIUM Stat Lab 02/22/22 03:16 Completed Lab/Rad Data: Laboratory Result Diagrams 02/22/22 03:16 02/22/22 03:16 Laboratory Results 02/22/22 02/22/22 Range/Units 03:16 03:16 WBC 10.1 (4.0-10.5) x10^3/uL RBC 4.69 (4.1-5.4) x10^6/uL Hgb 10.6 L (12.0-16.0) g/dL Hct 36.4 (35-47) % MCV 77.6 L (78-100) fL MCH 22.6 L (26-32) pg MCHC 29.1 L (32-36) g/dL RDW 17.1 H (11.5-14.0) % Plt Count 204 (150-450) x10^3/uL MPV 11.1 H (7.5-11.0) fL Gran % 62.3 (36.0-66.0) % Immature Gran % (Auto) 0.2 (0.00-0.4) % Nucleat RBC Rel Count 0.0 (0.00-0.1) % Eos # (Auto) 0.19 (0-0.5) x10^3/uL Immature Gran # (Auto) 0.02 (0.00-0.03) x10^3u/L Absolute Lymphs (auto) 2.72 (1.0-4.6) x10^3/uL Absolute Monos (auto) 0.86 (0.0-1.3) x10^3/uL Absolute Nucleated RBC 0.00 (0.00-0.01) x10^3u/L Lymphocytes % 26.9 (24.0-44.0) % Monocytes % 8.5 (0.0-12.0) % Eosinophils % 1.9 (0.00-5.0) % Basophils % 0.2 (0.0-0.4) % Absolute Granulocytes 6.31 (1.4-6.9) x10^3/uL Basophils # 0.02 (0-0.4) x10^3/uL Sodium 135 L (137-145) mmol/L Potassium 3.8 (3.5-5.1) mmol/L Chloride 99 (98-107) mmol/L Carbon Dioxide 29 (22-30) mmol/L Anion Gap 10.7 (5-15) MEQ/L BUN 10 (7-17) mg/dL Creatinine 0.65 (0.52-1.04) mg/dL Estimated GFR > 60.0 ML/MIN Glucose 202 H (74-106) mg/dL Calcium 8.7 (8.4-10.2) mg/dL Magnesium 1.9 (1.6-2.3) mg/dL Total Bilirubin 0.40 (0.2-1.3) mg/dL AST 22 (14-36) U/L ALT 21 (0-35) U/L Alkaline Phosphatase 137 H (38-126) U/L Serum Total Protein 6.5 (6.3-8.2) g/dL Albumin 3.8 (3.5-5.0) g/dL - Progress Progress: unchanged - Departure Departure Disposition: Home Clinical Impression: Muscle cramps Condition: Stable Critical Care Time: No Referrals: OMAR BENSON MD [Primary Care Provider] - Follow up/PCP as directed Instructions: Nocturnal (Nighttime) Leg Cramps (DC)
[2022-02-22 03:54] VITALS: BP 116/54; PULSE 87
== END 2022-02-22 03:54 | disposition home or self-care (01) ==
LOC: ED 02:42
DX: R25.2 Cramp and spasm (principal); E78.5 Hyperlipidemia, unspecified; I10 Essential (primary) hypertension; E11.9 Type 2 diabetes mellitus without complications; Z79.4 Long term (current) use of insulin; Z79.899 Other long term (current) drug therapy
CPT/HCPCS: 36415; 80053; 83735; 85025; 99282

== ENCOUNTER 2022-08-17 17:05 | Emergency (ER) | payer MEDICARE ==
--- NOTE | 2022-08-17 17:43 | ERPHSYRPT ---
- History of Present Illness Time Seen by Provider: 08/17/22 17:39 Source: patient Physician History: Patient is a 57-year-old female presents to our ED for evaluation of left hand wrist and right knee. Patient was at a business when she tripped and fell. The fall was mechanical. Patient fell forward and bruised her lip. However patient is concerned with possible broken hand and injured right knee. Patient has had knee surgery in the past and has hardware. Patient concerned that the hardware "shifted". No associated nausea vomiting or diaphoresis. The fall was not associated with chest pain or shortness of breath. Patient otherwise feels well. She voices no other complaints or concerns at this time. Portions of this note were created with voice recognition technology. There may be grammatical, spelling, punctuation or sound alike errors Timing/Duration: today Severity: moderate Modifying Factors: Improves With: nothing Associated Symptoms: denies symptoms Allergies/Adverse Reactions: famotidine [From Pepcid] Allergy (Severe, Verified 08/17/22 17:22) Vomiting insulin lispro [From Humalog] Allergy (Severe, Verified 08/17/22 17:22) Anaphylactic Reaction potassium chloride Allergy (Severe, Verified 08/17/22 17:22) Swelling of Tongue and Lips liquid potassium caused tongue swelling. pt takes tablets without issue propranolol [From Inderal LA] Allergy (Severe, Verified 08/17/22 17:22) Anaphylactic Reaction sumatriptan [From Imitrex] Allergy (Severe, Verified 08/17/22 17:22) Anaphylactic Reaction sumatriptan succinate [From Imitrex] Allergy (Severe, Verified 08/17/22 17:22) Anaphylactic Reaction procaine [From Novocain] Allergy (Intermediate, Verified 08/17/22 17:22) Swelling zolpidem [From Ambien] Allergy (Verified 08/17/22 17:22) Home Medications: Albuterol Sulfate [Proair Respiclick] 90 mcg IH QID 11/04/18 [History] Ascorbic Acid 500 mg [Vitamin C 500 MG] 500 mg PO DAILY 11/04/18 [History] Aspirin EC 81 mg [Ecotrin 81 mg] 81 mg PO DAILY 11/04/18 [History] Carvedilol 3.125 mg [Coreg 3.125 MG] 3.125 mg PO BID 11/04/18 [History] Cyanocobalamin (Vitamin B-12) [Vitamin B-12] 500 mcg PO DAILY 11/04/18 [History] Ergocalciferol (Vitamin D2) [Drisdol] 50,000 unit PO WEEKLY 11/04/18 [History] Esomeprazole Magnesium [Nexium] 40 mg PO DAILY 11/04/18 [History] Furosemide 20 mg [Lasix 20 mg] 20 mg PO BID 11/04/18 [History] Glimepiride 4 mg [Amaryl 4 mg] 4 mg PO BID 11/04/18 [History] Insulin Aspart Prot/Insuln Asp [Novolog Mix 70-30 Flexpen Syrn] 26 unit SQ TID 11/04/18 [History] Levothyroxine Sodium 75 Mcg [Synthroid 75 Mcg] 75 mcg PO DAILY 11/04/18 [History] Lipase/Protease/Amylase [Armando Zuleta 24,000 Units Capsule] 2 each PO QID 11/04/18 [History] Loxapine Succinate [Loxapine] 10 mg PO BID 11/04/18 [History] Metoclopramide HCl 5 mg PO HS 11/04/18 [History] Montelukast Sodium 10 mg [Singulair 10 MG] 10 mg PO DAILY 11/04/18 [History] Oxycodone HCl/Acetaminophen [Percocet 5-325 mg Tablet] 1 each PO QID 11/04/18 [History] Pioglitazone 30 mg [Actos 30 MG] 30 mg PO DAILY 11/04/18 [History] Polyethylene Glycol 3350 17 gm [Miralax Powder 17GM PACKET] 17 gm PO DAILY PRN PRN 11/04/18 [History] Potassium Chloride Tab* [Klor Con 10 MEQ] 10 meq PO TID 11/04/18 [History] Promethazine HCl 12.5 mg PO HS PRN PRN 11/04/18 [History] Topiramate 100 mg PO HS 11/04/18 [History] Cyclobenzaprine HCl 10 mg [Cyclobenzaprine 10 MG] 10 mg PO BID 08/01/20 [History] Gabapentin [Neurontin 300 mg] 600 mg PO TID 08/01/20 [History] Glucagon,Human Recombinant [Glucagen] 1 mg IJ UD 08/01/20 [History] Levocetirizine Dihydrochloride 5 mg PO BID 08/01/20 [History] Losartan Potassium [Cozaar] 25 mg PO BID 08/01/20 [History] Mirtazapine 30 mg [Remeron 30 mg] 30 mg PO BID 08/01/20 [History] haloperidoL [Haloperidol] 10 mg PO TID 08/01/20 [History] Hx Tetanus, Diphtheria Vaccination/Date Given: Yes Hx Influenza Vaccination/Date Given: Yes Hx Pneumococcal Vaccination/Date Given: Yes Travel Risk - Vaccine Status Have you recieved a Covid-19 vaccination: Yes Registration Representative: Moderna - Vaccination Dates Date of 2cond Vaccination (if applicable): 2020 - Review of Systems Constitutional: No Symptoms, No Fever, No Chills Eyes: No Symptoms Ears, Nose, & Throat: No Symptoms Respiratory: No Symptoms, No Cough, No Dyspnea Cardiac: No Symptoms, No Chest Pain, No Edema, No Syncope Abdominal/Gastrointestinal: No Symptoms, No Abdominal Pain, No Nausea, No Vomiting, No Diarrhea Genitourinary Symptoms: No Symptoms, No Dysuria Musculoskeletal: No Symptoms, No Back Pain, No Neck Pain Skin: No Symptoms, No Rash Neurological: No Symptoms, No Dizziness, No Focal Weakness, No Sensory Changes Psychological: No Symptoms Endocrine: No Symptoms Hematologic/Lymphatic: No Symptoms Immunological/Allergic: No Symptoms All Other Systems: Reviewed and Negative - Past Medical History Pertinent Past Medical History: Yes Neurological History: Other ENT History: Other Cardiac History: Arrhythmia, High Cholesterol, Hypertension Respiratory History: Other Endocrine Medical History: Diabetes Type II, Hypothyroidism Musculoskeletal History: Fractures GI Medical History: Diverticulosis, GERD, Gallbladder Disease History: No Pertinent History Psycho-Social History: Anxiety, Bipolar, Depression, Other Female Reproductive Disorders: Fibroids Other Medical History: PATIENT REPORTS HX OF COVID BUT ASYMPTOMATIC, IS VACCINATED FOR COVID. ALSO REPORTS "DON'T BREATH DEEP ENOUGH" SO USES NEBULIZER EVERY DAY. HX FX RIGHT TIBIA WITH ORIF AT AGE 15, SURGERY RIGHT GREAT TOE FOR HALLUX VALGUS 5 YEARS AGO. - Past Surgical History Past Surgical History: Yes Neuro Surgical History: No Pertinent History Cardiac: No Pertinent History Respiratory: No Pertinent History Gastrointestinal: Cholecystectomy Genitourinary: No Pertinent History Musculoskeletal: Other Female Surgical History: Hysterectomy, Section Other Surgical History: surgery right foot pins/toes,right knee "rebuilt"-screw in place, fareed hands neuro/nerve surgeries,right wrist x two cyst removed and bone reconstruction,left wrist also,right eye-[place] removed ?, x two, back surgery - Social History Smoking Status: Former smoker How long have you smoked: 12 Exposure to second hand smoke: Yes Drug Use: none Patient Lives Alone: No - Nursing Vital Signs Nursing Vital Signs: Initial Vital Signs Temperature 98.2 F 08/17/22 17:06 Pulse Rate 84 08/17/22 17:06 Respiratory Rate 22 08/17/22 17:06 Blood Pressure 141/59 08/17/22 17:06 O2 Sat by Pulse Oximetry 97 08/17/22 17:06 Pain Scale Pain Intensity 8 - Physical Exam General Appearance: no apparent distress, alert Eye Exam: PERRL/EOMI, eyes nml inspection Ears, Nose, Throat Exam: normal ENT inspection, TMs normal, pharynx normal, moist mucous membranes Neck Exam: normal inspection, non-tender, supple, full range of motion Respiratory Exam: normal breath sounds, lungs clear, airway intact, No respiratory distress Cardiovascular Exam: regular rate/rhythm, normal heart sounds, normal peripheral pulses Gastrointestinal/Abdomen Exam: soft, normal bowel sounds, No tenderness, No mass Back Exam: normal inspection, normal range of motion, No CVA tenderness, No vertebral tenderness Extremity Exam: normal inspection, normal range of motion, pelvis stable, other (Tenderness to palpation to left hand and wrist. Overlying soft tissue intact. No deformity. No swelling. Extremities neurovascular intact distally. Compartments are soft. Cap refill less than 2 seconds.) Neurologic Exam: alert, oriented x 3, cooperative, normal mood/affect, nml cerebellar function, nml station & gait, sensation nml, other (Some tenderness t o palpation of the right knee. No deformity. No open or draining lesions. The extremity is neurovascular intact distally.), No motor deficits Skin Exam: normal color, warm, dry, No rash Lymphatic Exam: No adenopathy SpO2 Interpretation: normal SpO2: 97 O2 Delivery: Room Air - Course Nursing assessment & vital signs reviewed: Yes - Radiology Exams Wrist X-ray Interpretation: Interpreted by me (No fracture or dislocation. Osteopenia degenerative changes.) Hand X-ray Interpretation: Interpreted by me (No fracture dislocations. Osteopenia and degenerative changes observed) Ordered Tests: Active Orders 24 hr Category Date Time Status HAND (MINIMUM 3 VIEWS) Stat Exams 08/17/22 17:28 Taken KNEE (MIN 4 VIEW) Stat Exams 08/17/22 17:28 Taken WRIST (MIN 3 VIEWS) Stat Exams 08/17/22 17:28 Taken Medication Summary Discontinued Medications Generic Name Dose Route Start Last Admin Trade Name Justin PRN Reason Stop Dose Admin Acetaminophen 1,000 mg 08/17/22 18:22 08/17/22 18:26 Acetaminophen 500 Mg Tablet PO 08/17/22 18:23 1,000 mg STAT ONE Administration Acetaminophen Confirm 08/17/22 18:23 Acetaminophen 500 Mg Tablet Administered 08/17/22 18:24 Dose 1,000 mg .ROUTE .STK-MED ONE - Progress Progress: improved Progress Note: 49-year-old female status post fall. Patient presents to our ED with complaints of head wrist and right knee pain. X-rays are negative for fracture dislocations. Intact hardware right knee. Patient received Tylenol for pain control. Patient will be referred to orthopedic clinic for follow-up. Complexity of problem addressed is low, acute uncomplicated. Complex of data reviewed and analyzed is moderate. Dr. Miranda independently reviewed x-rays of hand knee and wrist. Risk of complication and or risk of morbidity/mortality of patient management is low. Patient received Tylenol for pain control. Patient referred to orthopedic clinic for follow-up. Patient resting comfortably. No active pain. For splint provided for comfort. Portions of this note were created with voice recognition technology. There may be grammatical, spelling, punctuation or sound alike errors 08/17/22 18:47 Counseled pt/family regarding: diagnosis, need for follow-up, rad results - Departure Departure Disposition: Home Clinical Impression: Fall, Hand contusion, Contusion Condition: Stable Critical Care Time: No Referrals: OMAR BENSON MD [Primary Care Provider] - Follow up/PCP as directed Additional Instructions: Discharge/Care Plan HIREN BENSON was seen on 08/17/22 in the Emergency Room. The patient was counseled regarding Diagnosis,Lab results, Imaging studies, need for follow up and when to return to the Emergency Room. Prescriptions given: Discharge Note I have spoken with the patient and/or caregivers. I have explained the patient's condition, diagnosis and treatment plan based on the information available to me at this time. I have answered the patient's and/or caregiver's questions and addressed any concerns. The patient and/or caregivers have as good understanding of the patient's diagnosis, condition and treatment plan as can be expected at this point. The vital signs have been stable. The patient's condition is stable and appropriate for discharge from the emergency department. The patient will pursue further outpatient evaluation with the primary care physician or other designated or consulting physician as outlined in the discharge instructions. The patient and/or caregivers are agreeable to this plan of care and follow-up instructions have been explained in detail. The patient and/or caregivers have received these instruction. The patient/and or caregivers are aware that any significant change in condition or worsening of symptoms should prompt an immediate return to this or the closest emergency department or call 911. Outpatient Orders: Ortho Referral Time Frame: 1 Day, Facility: [facility], Location: [facility]
[2022-08-17] MEDS ORDERED: TYLENOL EXTRA STRENGTH 500 MG PO ONE (18:22)
[2022-08-17] MEDS ORDERED: TYLENOL EXTRA STRENGTH 500 MG ONE (18:23)
[2022-08-17 19:06] VITALS: BP 110/68; PULSE 89; O2SAT 96
--- NOTE | 2022-08-18 08:55 | XRAY ---
Indication: Pain and swelling following fall. Comparison: None 3 view left wrist demonstrates osteopenia, mild/moderate 1st metacarpal multangular scaphoid degenerative changes, and radiocarpal joint space narrowing. No other bony, articular, or soft tissue abnormalities.
--- NOTE | 2022-08-18 08:57 | XRAY ---
Indication: Pain and swelling following fall. Comparison: None 4 view right knee demonstrates osteopenia, mild/moderate tricompartmental degenerative changes, small nonspecific effusion, and intact proximal tibial orthopedic screw. No other bony, articular, or soft tissue abnormalities.
--- NOTE | 2022-08-18 08:57 | XRAY ---
Indication: Pain and swelling following fall. Comparison: None 3 view left hand demonstrates osteopenia, mild degenerative changes all IP joints, mild/moderate 1st metacarpal multangular scaphoid degenerative changes, and radiocarpal joint space narrowing. No other bony, articular, or soft tissue abnormalities.
== END 2022-08-17 19:07 | disposition home or self-care (01) ==
LOC: ED 17:05
DX: S60.222A Contusion of left hand, initial encounter (principal); W01.0XXA Fall on same level from slipping, tripping and stumbling without subsequent striking against object, initial encounter; M25.532 Pain in left wrist; M25.561 Pain in right knee; E78.5 Hyperlipidemia, unspecified; I10 Essential (primary) hypertension; E11.9 Type 2 diabetes mellitus without complications; Z79.4 Long term (current) use of insulin; Z79.899 Other long term (current) drug therapy
CPT/HCPCS: 73110; 73130; 73564; 99283; L3908; A9270-GY

== ENCOUNTER 2022-10-07 14:32 | Emergency (ER) | payer MEDICARE ==
[2022-10-07] MEDS ORDERED: Sodium Chloride 0.9% 1000 ML 1,000 ML IV STA (18:12)
--- NOTE | 2022-10-07 18:12 | ERPHSYRPT ---
- History of Present Illness Time Seen by Provider: 10/07/22 18:10 Source: patient Exam Limitations: no limitations Patient Subjective Stated Complaint: Hypotension Triage Nursing Assessment: Patient brought back to ED per w/c and transferred self to bed. Patient A+O X 3. Patient's skin pink, warm and dry. Patient states she was at PT and already felt dizzy. Patient states her blood pressure read 84/58 and 83/28. Patient states she had a headache earlier, but denies pain or discomfort now. Patient states she is dizzy. Physician History: Patient is a 57-year-old female presents to our emergency department for evalu ation of low blood pressure. Patient reports she was in physical therapy felt dizzy and blood pressure was 83/58 systolic. Upon arrival to our ED patient was normotensive. Upon my examination patient was no longer dizzy she was asymptomatic. Patient currently has no complaints at this time. Vital stable. Blood pressure normal. Patient states she has had episodes of hypotension in the past. No associated chest pain. No nausea vomiting or diaphoresis. Significant other at bedside. They voiced no other complaints or concerns at this time. Portions of this note were created with voice recognition technology. There may be grammatical, spelling, punctuation or sound alike errors Timing/Duration: today Severity: moderate Modifying Factors: Improves With: nothing Associated Symptoms: denies symptoms Allergies/Adverse Reactions: famotidine [From Pepcid] Allergy (Severe, Verified 10/07/22 15:35) Vomiting insulin lispro [From Humalog] Allergy (Severe, Verified 10/07/22 15:35) Anaphylactic Reaction potassium chloride Allergy (Severe, Verified 10/07/22 15:35) Swelling of Tongue and Lips liquid potassium caused tongue swelling. pt takes tablets without issue propranolol [From Inderal LA] Allergy (Severe, Verified 10/07/22 15:35) Anaphylactic Reaction sumatriptan [From Imitrex] Allergy (Severe, Verified 10/07/22 15:35) Anaphylactic Reaction sumatriptan succinate [From Imitrex] Allergy (Severe, Verified 10/07/22 15:35) Anaphylactic Reaction procaine [From Novocain] Allergy (Intermediate, Verified 10/07/22 15:35) Swelling zolpidem [From Ambien] Allergy (Verified 10/07/22 15:35) Home Medications: Albuterol Sulfate [Proair Respiclick] 90 mcg IH QID 11/04/18 [History] Ascorbic Acid 500 mg [Vitamin C 500 MG] 500 mg PO DAILY 11/04/18 [History] Aspirin EC 81 mg [Ecotrin 81 mg] 81 mg PO DAILY 11/04/18 [History] Carvedilol 3.125 mg [Coreg 3.125 MG] 3.125 mg PO BID 11/04/18 [History] Cyanocobalamin (Vitamin B-12) [Vitamin B-12] 500 mcg PO DAILY 11/04/18 [History] Ergocalciferol (Vitamin D2) [Drisdol] 50,000 unit PO WEEKLY 11/04/18 [History] Esomeprazole Magnesium [Nexium] 40 mg PO DAILY 11/04/18 [History] Furosemide 20 mg [Lasix 20 mg] 20 mg PO BID 11/04/18 [History] Glimepiride 4 mg [Amaryl 4 mg] 4 mg PO BID 11/04/18 [History] Insulin Aspart Prot/Insuln Asp [Novolog Mix 70-30 Flexpen Syrn] 26 unit SQ TID 11/04/18 [History] Levothyroxine Sodium 75 Mcg [Synthroid 75 Mcg] 75 mcg PO DAILY 11/04/18 [History] Lipase/Protease/Amylase [Armando Dr 24,000 Units Capsule] 2 each PO QID 11/04/18 [History] Loxapine Succinate [Loxapine] 10 mg PO BID 11/04/18 [History] Metoclopramide HCl 5 mg PO HS 11/04/18 [History] Montelukast Sodium 10 mg [Singulair 10 MG] 10 mg PO DAILY 11/04/18 [History] Oxycodone HCl/Acetaminophen [Percocet 5-325 mg Tablet] 1 each PO QID 11/04/18 [History] Pioglitazone 30 mg [Actos 30 MG] 30 mg PO DAILY 11/04/18 [History] Polyethylene Glycol 3350 17 gm [Miralax Powder 17GM PACKET] 17 gm PO DAILY PRN PRN 11/04/18 [History] Potassium Chloride Tab* [Klor Con 10 MEQ] 10 meq PO TID 11/04/18 [History] Promethazine HCl 12.5 mg PO HS PRN PRN 11/04/18 [History] Topiramate 100 mg PO HS 11/04/18 [History] Cyclobenzaprine HCl 10 mg [Cyclobenzaprine 10 MG] 10 mg PO BID 08/01/20 [History] Gabapentin [Neurontin 300 mg] 600 mg PO TID 08/01/20 [History] Glucagon,Human Recombinant [Glucagen] 1 mg IJ UD 08/01/20 [History] Levocetirizine Dihydrochloride 5 mg PO BID 08/01/20 [History] Losartan Potassium [Cozaar] 25 mg PO BID 08/01/20 [History] Mirtazapine 30 mg [Remeron 30 mg] 30 mg PO BID 08/01/20 [History] haloperidoL [Haloperidol] 10 mg PO TID 08/01/20 [History] Hx Tetanus, Diphtheria Vaccination/Date Given: Yes Hx Influenza Vaccination/Date Given: Yes Hx Pneumococcal Vaccination/Date Given: Yes Immunizations Up to Date: Yes Travel Risk - International Travel Have you traveled outside of the country in past 3 weeks: No - Coronavirus Screening Are you exhibiting any of the following symptoms?: No Close contact with a COVID-19 positive Pt in past 14-21 Days: No - Vaccine Status Have you recieved a Covid-19 vaccination: Yes Patient Service Technician Pst: Moderna - Vaccination Dates Date of 2cond Vaccination (if applicable): 2020 - Review of Systems Constitutional: No Symptoms, No Fever, No Chills Eyes: No Symptoms Ears, Nose, & Throat: No Symptoms Respiratory: No Symptoms, No Cough, No Dyspnea Cardiac: No Symptoms, No Chest Pain, No Edema, No Syncope Abdominal/Gastrointestinal: No Symptoms, No Abdominal Pain, No Nausea, No Vomiting, No Diarrhea Genitourinary Symptoms: No Symptoms, No Dysuria Musculoskeletal: No Symptoms, No Back Pain, No Neck Pain Skin: No Symptoms, No Rash Neurological: No Symptoms, No Dizziness, No Focal Weakness, No Sensory Changes Psychological: No Symptoms Endocrine: No Symptoms Hematologic/Lymphatic: No Symptoms Immunological/Allergic: No Symptoms All Other Systems: Reviewed and Negative - Past Medical History Pertinent Past Medical History: Yes Neurological History: Other ENT History: Other Cardiac History: Arrhythmia, High Cholesterol Respiratory History: Asthma Endocrine Medical History: Diabetes Type II, Hypothyroidism Musculoskeletal History: Fractures, Osteoarthritis GI Medical History: Diverticulosis, GERD, Gallbladder Disease History: No Pertinent History Psycho-Social History: Anxiety, Bipolar, Depression, Other Female Reproductive Disorders: Fibroids Other Medical History: FX "RIGHT KNEE" AT AGE 15 WITH SCREW PLACEMENT. DX'D WI TH [facility] YEARS AGO AND PER PATIENT ALSO WITH DEGENERATIVE MUSCLE DISEASE BUT NOT SURE OF NAME. ALSO HX OF ANXIETY, DEPRESSION AND BIPOLAR DISORDER. HX OF HYPERTENSION BUT RECENTLY STOPPED MEDS PATIENT WAS HAVING LOW BLOOD PRESSURE ISSUES. - Past Surgical History Past Surgical History: Yes Neuro Surgical History: No Pertinent History Cardiac: No Pertinent History Respiratory: No Pertinent History Gastrointestinal: Cholecystectomy Genitourinary: No Pertinent History Musculoskeletal: Other Female Surgical History: Hysterectomy, Section Other Surgical History: surgery right foot pins/toes,right knee "rebuilt"-screw in place, fareed hands neuro/nerve surgeries,right wrist x two cyst removed and bone reconstruction,left wrist also,right eye-[place] removed ?, x two, back surgery - Social History Smoking Status: Former smoker How long have you smoked: 12 Exposure to second hand smoke: Yes Drug Use: none Patient Lives Alone: No - Nursing Vital Signs Nursing Vital Signs: Initial Vital Signs Temperature 96.3 F 10/07/22 15:35 Pulse Rate 65 10/07/22 15:35 Respiratory Rate 18 10/07/22 15:35 Blood Pressure 133/64 10/07/22 15:35 O2 Sat by Pulse Oximetry 97 10/07/22 15:35 Pain Scale Pain Intensity 0 - Physical Exam General Appearance: no apparent distress, alert Eye Exam: PERRL/EOMI, eyes nml inspection Ears, Nose, Throat Exam: normal ENT inspection, TMs normal, pharynx normal, moist mucous membranes Neck Exam: normal inspection, non-tender, supple, full range of motion Respiratory Exam: normal breath sounds, lungs clear, No respiratory distress Cardiovascular Exam: regular rate/rhythm, normal heart sounds, normal peripheral pulses Gastrointestinal/Abdomen Exam: soft, normal bowel sounds, No tenderness, No mass Back Exam: normal inspection, normal range of motion, No CVA tenderness, No vertebral tenderness Extremity Exam: normal inspection, normal range of motion, pelvis stable Neurologic Exam: alert, oriented x 3, cooperative, normal mood/affect, sensation nml, No motor deficits Skin Exam: normal color, warm, dry, No rash Lymphatic Exam: No adenopathy SpO2 Interpretation: normal SpO2: 99 O2 Delivery: Room Air - Course Nursing assessment & vital signs reviewed: Yes EKG Interpreted by Me: RATE ([id number]), Sinus Rhythm, NORMAL AXIS, NORMAL INTERVALS Ordered Tests: Active Orders 24 hr Category Date Time Status Home Connect Lpn STAT Care 10/07/22 18:12 Active IV Insertion STAT Care 10/07/22 18:12 Active Pulse Oximetry (ED) STAT Care 10/07/22 18:12 Active CBC W DIFF Stat Lab 10/07/22 18:15 Completed CMP Stat Lab 10/07/22 18:15 Completed TROPONIN Q4H Lab 10/07/22 18:15 Completed TROPONIN Q4H Lab 10/07/22 22:15 Ordered TROPONIN Q4H Lab 10/08/22 02:15 Ordered UA W/RFX UR CULTURE Stat Lab 10/07/22 18:15 Completed Medication Summary Discontinued Medications Generic Name Dose Route Start Last Admin Trade Name Yoniq PRN Reason Stop Dose Admin Sodium Chloride 1,000 mls @ 999 mls/hr 10/07/22 18:12 10/07/22 19:47 Sodium Chloride 0.9% 1000 Ml IV 10/07/22 19:12 Infused .Q1H1M STA Infusion Sodium Chloride Confirm 10/07/22 18:17 Sodium Chloride 0.9% 1000 Ml Administered 10/07/22 18:18 Dose 1,000 mls @ ud .ROUTE .STK-MED ONE Potassium Chloride 40 meq 10/07/22 20:09 Potassium Chloride Tab 10 Meq Tab PO 10/07/22 20:10 STAT ONE Lab/Rad Data: Laboratory Result Diagrams 10/07/22 18:15 10/07/22 18:15 Laboratory Results 10/07/22 10/07/22 10/07/22 Range/Units 18:15 18:15 18:15 WBC 7.0 (4.0-10.5) x10^3/uL RBC 4.72 (4.1-5.4) x10^6/uL Hgb 11.4 L (12.0-16.0) g/dL Hct 38.3 (35-47) % MCV 81.1 (78-100) fL MCH 24.2 L (26-32) pg MCHC 29.8 L (32-36) g/dL RDW 18.6 H (11.5-14.0) % Plt Count 215 (150-450) x10^3/uL MPV 11.6 H (7.5-11.0) fL Gran % 49.1 (36.0-66.0) % Immature Gran % (Auto) 0.3 (0.00-0.4) % Nucleat RBC Rel Count 0.0 (0.00-0.1) % Eos # (Auto) 0.10 (0-0.5) x10^3/uL Immature Gran # (Auto) 0.02 (0.00-0.03) x10^3u/L Absolute Lymphs (auto) 2.79 (1.0-4.6) x10^3/uL Absolute Monos (auto) 0.61 (0.0-1.3) x10^3/uL Absolute Nucleated RBC 0.00 (0.00-0.01) x10^3u/L Lymphocytes % 40.1 (24.0-44.0) % Monocytes % 8.8 (0.0-12.0) % Eosinophils % 1.4 (0.00-5.0) % Basophils % 0.3 (0.0-0.4) % Absolute Granulocytes 3.41 (1.4-6.9) x10^3/uL Basophils # 0.02 (0-0.4) x10^3/uL Sodium 140 (137-145) mmol/L Potassium 3.3 L (3.5-5.1) mmol/L Chloride 101 (98-107) mmol/L Carbon Dioxide 31 H (22-30) mmol/L Anion Gap 11.3 (5-15) MEQ/L BUN 9 (7-17) mg/dL Creatinine 0.77 (0.52-1.04) mg/dL Estimated GFR > 60.0 ML/MIN Glucose 95 (74-106) mg/dL Calcium 8.6 (8.4-10.2) mg/dL Total Bilirubin 0.30 (0.2-1.3) mg/dL AST 27 (14-36) U/L ALT 29 (0-35) U/L Alkaline Phosphatase 120 (38-126) U/L Troponin I < 0.012 (0.000-0.034) ng/mL Serum Total Protein 6.5 (6.3-8.2) g/dL Albumin 3.6 (3.5-5.0) g/dL Urine Color (Yellow) Urine Appearance (Clear) Urine pH (4.6-8.0) Ur Specific [place] (1.005-1.030) Urine Protein (Negative) Urine Glucose (UA) (Negative) mg/dL Urine Ketones (Negative) Urine Blood (Negative) Urine Nitrite (Negative) Urine Bilirubin (Negative) Urine Urobilinogen (0.2) mg/dL Ur Leukocyte Esterase (Negative) U Hyaline Cast (Auto) (0-2) /LPF Urine Microscopic RBC (0-5) /HPF Urine Microscopic WBC (0-5) /HPF Ur Epithelial Cells (None Seen) /HPF Urine Bacteria (None Seen) /HPF Urine Culture Reflexed (NO) 10/07/22 Range/Units 18:15 WBC (4.0-10.5) x10^3/uL RBC (4.1-5.4) x10^6/uL Hgb (12.0-16.0) g/dL Hct (35-47) % MCV (78-100) fL MCH (26-32) pg MCHC (32-36) g/dL RDW (11.5-14.0) % Plt Count (150-450) x10^3/uL MPV (7.5-11.0) fL Gran % (36.0-66.0) % Immature Gran % (Auto) (0.00-0.4) % Nucleat RBC Rel Count (0.00-0.1) % Eos # (Auto) (0-0.5) x10^3/uL Immature Gran # (Auto) (0.00-0.03) x10^3u/L Absolute Lymphs (auto) (1.0-4.6) x10^3/uL Absolute Monos (auto) (0.0-1.3) x10^3/uL Absolute Nucleated RBC (0.00-0.01) x10^3u/L Lymphocytes % (24.0-44.0) % Monocytes % (0.0-12.0) % Eosinophils % (0.00-5.0) % Basophils % (0.0-0.4) % Absolute Granulocytes (1.4-6.9) x10^3/uL Basophils # (0-0.4) x10^3/uL Sodium (137-145) mmol/L Potassium (3.5-5.1) mmol/L Chloride (98-107) mmol/L Carbon Dioxide (22-30) mmol/L Anion Gap (5-15) MEQ/L BUN (7-17) mg/dL Creatinine (0.52-1.04) mg/dL Estimated GFR ML/MIN Glucose (74-106) mg/dL Calcium (8.4-10.2) mg/dL Total Bilirubin (0.2-1.3) mg/dL AST (14-36) U/L ALT (0-35) U/L Alkaline Phosphatase (38-126) U/L Troponin I (0.000-0.034) ng/mL Serum Total Protein (6.3-8.2) g/dL Albumin (3.5-5.0) g/dL Urine Color Yellow (Yellow) Urine Appearance Clear (Clear) Urine pH 7.0 (4.6-8.0) Ur Specific [place] <=1.005 (1.005-1.030) Urine Protein Negative (Negative) Urine Glucose (UA) Negative (Negative) mg/dL Urine Ketones Negative (Negative) Urine Blood Negative (Negative) Urine Nitrite Negative (Negative) Urine Bilirubin Negative (Negative) Urine Urobilinogen 0.2 (0.2) mg/dL Ur Leukocyte Esterase Trace A (Negative) U Hyaline Cast (Auto) NONE SEEN (0-2) /LPF Urine Microscopic RBC 0-2 (0-5) /HPF Urine Microscopic WBC 0-2 (0-5) /HPF Ur Epithelial Cells None Seen (None Seen) /HPF Urine Bacteria None Seen (None Seen) /HPF Urine Culture Reflexed NO (NO) - Progress Progress: improved Progress Note: Patient is a 57-year-old female presents to our ED for evaluation of low blood pressure. Upon arrival patient's blood pressure was normal. Physical exam negative. No significant findings observed on physical exam. Testing includes CBC CMP. CMP reveals potassium 3.3. Patient received potassium chloride p.o. Troponin negative. UA negative. Patient received normal saline. Patient reassessed. She is asymptomatic. No indication for further work-up. Will discharge home. EKG reveals sinus rhythm rate 63. Patient agrees to follow-up with her primary care doctor within 48 hours for reevaluation. Complexity of problem addressed is moderate acute complicated No critical care time Complex of data reviewed and analyzed is moderate. Test ordered. Test reviewed and analyzed. Tests correlated clinically with physical exam findings. Results of analysis and clinical correlation established disposition in this case discharge home. Risk of complication and or risk morbidity/[place] patient management is moderate. Oral potassium chloride administered. Patient received IV fluid for low blood pressure complaint. We will discharge home. Patient agrees to follow-up with primary care doctor terry licona 48 hours. No social determinants of health present to impede follow-up. Vital stable. Plan of care established for shared decision making. Patient and significant other voiced no other complaints at this time. Portions of this note were created with voice recognition technology. There may be grammatical, spelling, punctuation or sound alike errors 10/07/22 20:14 Counseled pt/family regarding: lab results, diagnosis, need for follow-up - Departure Departure Disposition: Home Clinical Impression: Hypotension, Hypokalemia Condition: Stable Critical Care Time: No Referrals: OMAR BENSON MD [Primary Care Provider] - Follow up/PCP as directed Additional Instructions: Discharge/Care Plan EVERETTLUCIAHIREN KAYLAH was seen on 10/07/22 in the Emergency Room. The patient was counseled regarding Diagnosis,Lab results, Imaging studies, need for follow up and when to return to the Emergency Room. Prescriptions given: Discharge Note I have spoken with the patient and/or caregivers. I have explained the patient's condition, diagnosis and treatment plan based on the information available to me at this time. I have answered the patient's and/or caregiver's questions and addressed any concerns. The patient and/or caregivers have as good understanding of the patient's diagnosis, condition and treatment plan as can be expected at this point. The vital signs have been stable. The patient's condition is stable and appropriate for discharge from the emergency department. The patient will pursue further outpatient evaluation with the primary care physician or other designated or consulting physician as outlined in the discharge instructions. The patient and/or caregivers are agreeable to this plan of care and follow-up instructions have been explained in detail. The patient and/or caregivers have received these instruction. The patient/and or caregivers are aware that any significant change in condition or worsening of symptoms should prompt an immediate return to this or the closest emergency department or call 911.
[2022-10-07 18:16] VITALS: PULSE 70
[2022-10-07 18:16] LABS: Absolute Neutrophil Ct (ANC) 3.41 x10^3/uL (1.4-6.9); BASOPHIL % 0.3 % (0.0-0.4); Basophil (Absolute #) 0.02 x10^3/uL (0-0.4); Eosinophil % 1.4 % (0.00-5.0); Hematocrit 38.3 % (35-47); Hemoglobin 11.4 g/dL (12.0-16.0); IMMATURE GRAN # 0.02 x10^3u/L (0.00-0.03); IMMATURE GRAN % 0.3 % (0.00-0.4); Lymphocyte (Absolute #) 2.79 x10^3/uL (1.0-4.6); Lymphocytes % 40.1 % (24.0-44.0); Mean Cell Volume 81.1 fL (78-100); Mean Corpuscular Hemoglobin 24.2 pg (26-32); Mean Corpuscular Hgb Concent. 29.8 g/dL (32-36); Mean Platelet Volume 11.6 fL (7.5-11.0); Monocyte (Absolute #) 0.61 x10^3/uL (0.0-1.3); Monocytes % 8.8 % (0.0-12.0); Neutrophil % 49.1 % (36.0-66.0); Platelet Count 215 x10^3/uL (150-450); Red Blood Count 4.72 x10^6/uL (4.1-5.4); Red Cell Distribution Width 18.6 % (11.5-14.0)
[2022-10-07] MEDS ORDERED: Sodium Chloride 0.9% 1000 ML 1,000 ML ONE (18:17)
[2022-10-07 18:23] LABS: ALBUMIN 3.6 g/dL (3.5-5.0); ALKALINE PHOSPHATASE 120 U/L (38-126); ANION GAP 11.3 MEQ/L (5-15); BLOOD UREA NITROGEN 9 mg/dL (7-17); CHLORIDE 101 mmol/L (98-107); Calcium 8.6 mg/dL (8.4-10.2); Carbon Dioxide 31 mmol/L (22-30); Creatinine 1 0.77 mg/dL (0.52-1.04); EST GLOMERULAR FILTRATION RATE > 60.0 ML/MIN; Glucose 95 mg/dL (74-106); Potassium 3.3 mmol/L (3.5-5.1); SGOT/AST 27 U/L (14-36); SGPT/ALT 29 U/L (0-35); SODIUM 140 mmol/L (137-145); Total Protein 6.5 g/dL (6.3-8.2)
[2022-10-07 18:24] LABS: Appearance Clear (Clear); Bacteria None Seen /HPF (None Seen); Bilirubin Negative (Negative); Blood Negative (Negative); Epithelial Cells None Seen /HPF (None Seen); Glucose, Urine Negative (Negative); Hyaline Casts NONE SEEN /LPF (0-2); Ketones Negative (Negative); Leukocyte Esterase Trace (Negative); Nitrite Negative (Negative); Protein,Urine Dip Negative (Negative); RBC 0-2 /HPF (0-5); Specific Gravity <=1.005 (1.005-1.030); Urobilinogen 0.2 mg/dL (0.2); WBC 0-2 /HPF (0-5)
[2022-10-07 18:37] LABS: ADD URINE CULTURE? NO (NO)
[2022-10-07] MEDS ORDERED: Klor Con PO ONE ×2 (20:09→20:11)
[2022-10-07 20:18] VITALS: O2SAT 99
[2022-10-07 20:19] VITALS: BP 148/93
== END 2022-10-07 20:22 | disposition home or self-care (01) ==
LOC: ED 14:32
DX: I95.9 Hypotension, unspecified (principal); E87.6 Hypokalemia; E78.5 Hyperlipidemia, unspecified; E11.9 Type 2 diabetes mellitus without complications; Z79.84 Long term (current) use of oral hypoglycemic drugs; Z79.4 Long term (current) use of insulin; Z79.899 Other long term (current) drug therapy
CPT/HCPCS: 36000; 36415; 80053; 81001; 84484; 85025; 93041; 94760; 96360; 99284; A9270-GY

== ENCOUNTER 2022-10-26 20:52 | Emergency (ER) | payer MEDICARE ==
[2022-10-26 22:58] VITALS: TEMP 99.4
[2022-10-27] MEDS ORDERED: TORAdol 30 mg Injection IM ONE (00:52)
[2022-10-27] MEDS ORDERED: TORAdol 30 mg Injection ONE (00:56)
[2022-10-27 00:57] VITALS: O2SAT 100
--- NOTE | 2022-10-27 00:57 | ERPHSYRPT ---
- History of Present Illness Time Seen by Provider: 10/27/22 00:51 Source: patient Exam Limitations: no limitations Patient Subjective Stated Complaint: fall today Triage Nursing Assessment: pt brought back into ER via wheelchair by Sandro Fry EMT-P. Pt twisted her left ankle today walking into her house and fell. Pt c/o pain to Left ankle, left knee, left wrist and left pinky finger and middle finger. Bruising noted to left knee, no edema noted to left ankle, pedal pulses present. No bruising or edema noted to Lt wrist or fingers, pt has limited movement to fingers. Lt radial pulse present. Physician History: Patient is a 57-year-old female presents to our ED for evaluation of pain to her left hand left knee and left ankle. Patient states she was a sending her steps to get into her house. Patient accidentally inverted her right ankle causing patient to fall. No BHT or LOC. No neck pain. Cervical spine cleared clinically. Injury occurred at 3 PM. Patient did not come in initially as she felt fine. However over the course of the day patient's left hand, left knee and left ankle became more sore. The fall was mechanical. The fall was not associated with any neuro cardiovascular symptomology. No associated numbness tingling or weakness. Patient otherwise feels well at this time. Significant other at bedside. They voiced no other complaints or concerns at this time. No other injuries reported Portions of this note were created with voice recognition technology. There may be grammatical, spelling, punctuation or sound alike errors Timing/Duration: today Severity: moderate Modifying Factors: Improves With: nothing Associated Symptoms: denies symptoms Allergies/Adverse Reactions: famotidine [From Pepcid] Allergy (Severe, Verified 10/26/22 22:37) Vomiting insulin lispro [From Humalog] Allergy (Severe, Verified 10/26/22 22:37) Anaphylactic Reaction potassium chloride Allergy (Severe, Verified 10/26/22 22:37) Swelling of Tongue and Lips liquid potassium caused tongue swelling. pt takes tablets without issue propranolol [From Inderal LA] Allergy (Severe, Verified 10/26/22 22:37) Anaphylactic Reaction sumatriptan [From Imitrex] Allergy (Severe, Verified 10/26/22 22:37) Anaphylactic Reaction sumatriptan succinate [From Imitrex] Allergy (Severe, Verified 10/26/22 22:37) Anaphylactic Reaction procaine [From Novocain] Allergy (Intermediate, Verified 10/26/22 22:37) Swelling zolpidem [From Ambien] Allergy (Verified 10/26/22 22:37) Home Medications: Albuterol Sulfate [Proair Respiclick] 90 mcg IH QID 11/04/18 [History] Ascorbic Acid 500 mg [Vitamin C 500 MG] 500 mg PO DAILY 11/04/18 [History] Aspirin EC 81 mg [Ecotrin 81 mg] 81 mg PO DAILY 11/04/18 [History] Cyanocobalamin (Vitamin B-12) [Vitamin B-12] 500 mcg PO DAILY 11/04/18 [History] Ergocalciferol (Vitamin D2) [Drisdol] 50,000 unit PO WEEKLY 11/04/18 [History] Esomeprazole Magnesium [Nexium] 40 mg PO DAILY 11/04/18 [History] Furosemide 20 mg [Lasix 20 mg] 20 mg PO DAILY 11/04/18 [History] Glimepiride 4 mg [Amaryl 4 mg] 4 mg PO BID 11/04/18 [History] Insulin Aspart Prot/Insuln Asp [Novolog Mix 70-30 Flexpen Syrn] 26 unit SQ TID 11/04/18 [History] Levothyroxine Sodium 75 Mcg [Synthroid 75 Mcg] 75 mcg PO DAILY 11/04/18 [History] Lipase/Protease/Amylase [Armando Dr 24,000 Units Capsule] 2 each PO QID 11/04/18 [History] Loxapine Succinate [Loxapine] 10 mg PO BID 11/04/18 [History] Montelukast Sodium 10 mg [Singulair 10 MG] 10 mg PO DAILY 11/04/18 [History] Oxycodone HCl/Acetaminophen [Percocet 5-325 mg Tablet] 1 each PO QID 11/04/18 [History] Pioglitazone 30 mg [Actos 30 MG] 30 mg PO DAILY 11/04/18 [History] Polyethylene Glycol 3350 17 gm [Miralax Powder 17GM PACKET] 17 gm PO DAILY PRN PRN 11/04/18 [History] Potassium Chloride Tab* [Klor Con 10 MEQ] 10 meq PO TID 11/04/18 [History] Promethazine HCl 12.5 mg PO HS PRN PRN 11/04/18 [History] Topiramate 50 mg PO HS 11/04/18 [History] Cyclobenzaprine HCl 10 mg [Cyclobenzaprine 10 MG] 10 mg PO BID 08/01/20 [History] Gabapentin [Neurontin 300 mg] 600 mg PO TID 08/01/20 [History] Glucagon,Human Recombinant [Glucagen] 1 mg IJ UD 08/01/20 [History] Levocetirizine Dihydrochloride 5 mg PO BID 08/01/20 [History] Losartan Potassium [Cozaar] 25 mg PO BID 08/01/20 [History] Mirtazapine 30 mg [Remeron 30 mg] 30 mg PO BID 08/01/20 [History] haloperidoL [Haloperidol] 10 mg PO TID 08/01/20 [History] Hx Tetanus, Diphtheria Vaccination/Date Given: Yes Hx Influenza Vaccination/Date Given: Yes Hx Pneumococcal Vaccination/Date Given: Yes Immunizations Up to Date: Yes Travel Risk - International Travel Have you traveled outside of the country in past 3 weeks: No - Coronavirus Screening Are you exhibiting any of the following symptoms?: No Close contact with a COVID-19 positive Pt in past 14-21 Days: No - Vaccine Status Have you recieved a Covid-19 vaccination: Yes [place]: Moderna - Vaccination Dates Date of 2cond Vaccination (if applicable): . - Review of Systems Constitutional: No Symptoms, No Fever, No Chills Eyes: No Symptoms Ears, Nose, & Throat: No Symptoms Respiratory: No Symptoms, No Cough, No Dyspnea Cardiac: No Symptoms, No Chest Pain, No Edema, No Syncope Abdominal/Gastrointestinal: No Symptoms, No Abdominal Pain, No Nausea, No Vomiting, No Diarrhea Genitourinary Symptoms: No Symptoms, No Dysuria Musculoskeletal: No Symptoms, No Back Pain, No Neck Pain Skin: No Symptoms, No Rash Neurological: No Symptoms, No Dizziness, No Focal Weakness, No Sensory Changes Psychological: No Symptoms Endocrine: No Symptoms Hematologic/Lymphatic: No Symptoms Immunological/Allergic: No Symptoms All Other Systems: Reviewed and Negative - Past Medical History Pertinent Past Medical History: Yes Neurological History: Other ENT History: Other Cardiac History: Arrhythmia, High Cholesterol Respiratory History: Asthma Endocrine Medical History: Diabetes Type II, Hypothyroidism Musculoskeletal History: Fractures, Osteoarthritis GI Medical History: Diverticulosis, GERD, Gallbladder Disease History: No Pertinent History Psycho-Social History: Anxiety, Bipolar, Depression, Other Female Reproductive Disorders: Fibroids Other Medical History: FX "RIGHT KNEE" AT AGE 15 WITH SCREW PLACEMENT. DX'D WITH PARKINSON'S YEARS AGO AND PER PATIENT ALSO WITH DEGENERATIVE MUSCLE DISEASE BUT NOT SURE OF NAME. ALSO HX OF ANXIETY, DEPRESSION AND BIPOLAR DISORDER/SCHIZOPHRENIA. HX OF HYPERTENSION BUT RECENTLY STOPPED MEDS PATIENT WAS HAVING LOW BLOOD PRESSURE ISSUES. - Past Surgical History Past Surgical History: Yes Neuro Surgical History: No Pertinent History Cardiac: No Pertinent History Respiratory: No Pertinent History Gastrointestinal: Cholecystectomy Genitourinary: No Pertinent History Musculoskeletal: Other Female Surgical History: Hysterectomy, Section Other Surgical History: surgery right foot pins/toes,right knee "rebuilt"-screw in place, fareed hands neuro/nerve surgeries,right wrist x two cyst removed and nerve reconstruction,left wrist also,right eye-[place] removed ?, x two, back surgery - Social History Smoking Status: Former smoker How long have you smoked: 12 Exposure to second hand smoke: Yes Drug Use: none Patient Lives Alone: No - Nursing Vital Signs Nursing Vital Signs: Initial Vital Signs Temperature 99.4 F 10/26/22 22:53 Pulse Rate 70 10/26/22 22:53 Respiratory Rate 20 10/26/22 22:53 Blood Pressure 112/50 10/26/22 22:53 O2 Sat by Pulse Oximetry 100 10/26/22 22:53 Pain Scale Pain Intensity 10 - Physical Exam General Appearance: no apparent distress, alert Eye Exam: PERRL/EOMI, eyes nml inspection Ears, Nose, Throat Exam: normal ENT inspection, TMs normal, pharynx normal, moist mucous membranes Neck Exam: normal inspection, non-tender, supple, full range of motion Respiratory Exam: normal breath sounds, lungs clear, airway intact, No respiratory distress Cardiovascular Exam: regular rate/rhythm, normal heart sounds, normal peripheral pulses Gastrointestinal/Abdomen Exam: soft, normal bowel sounds, No tenderness, No mass Back Exam: normal inspection, normal range of motion, No CVA tenderness, No vertebral tenderness Extremity Exam: normal inspection, normal range of motion, pelvis stable, other (Some tenderness to the left fifth metacarpal, anterior left knee and lateral ankle. Overlying soft tissue intact. No signs of trauma. Compartments are soft. Cap refill less than 2 seconds. Neurovascular intact distally.) Neurologic Exam: alert, oriented x 3, cooperative, normal mood/affect, nml cerebellar function, nml station & gait, sensation nml, No motor deficits Skin Exam: normal color, warm, dry, No rash Lymphatic Exam: No adenopathy SpO2 Interpretation: normal SpO2: 100 O2 Delivery: Room Air - Course Nursing assessment & vital signs reviewed: Yes - Radiology Exams Ankle X-ray Interpretation: Interpreted by me (No fracture dislocations. No soft tissue abnormalities) Hand X-ray Interpretation: Interpreted by me (No fracture or dislocation. No soft tissue abnormalities) Knee X-ray Interpretation: Interpreted by me (No fracture or dislocation. No soft tissue abnormalities) Wrist X-ray Interpretation: Interpreted by me (No fracture dislocations. No soft tissue abnormalities) Ordered Tests: Active Orders 24 hr Category Date Time Status ANKLE (3 VIEWS) Stat Exams 10/26/22 22:25 Taken HAND (MINIMUM 3 VIEWS) Stat Exams 10/26/22 22:26 Taken KNEE (3 VIEWS) Stat Exams 10/26/22 22:25 Taken WRIST (MIN 3 VIEWS) Stat Exams 10/26/22 22:26 Taken Medication Summary Discontinued Medications Generic Name Dose Route Start Last Admin Trade Name Freq PRN Reason Stop Dose Admin Ketorolac Tromethamine 30 mg 10/27/22 00:52 10/27/22 00:57 Ketorolac Tromethamine 30 Mg/Ml Inj IM 10/27/22 00:53 30 mg STAT ONE Administration Ketorolac Tromethamine Confirm 10/27/22 00:56 Ketorolac Tromethamine 30 Mg/Ml Inj Administered 10/27/22 00:57 Dose 30 mg .ROUTE .STDelta ID-MED ONE - Progress Progress: improved Progress Note: Patient is a 57-year-old female presents to our ED for evaluation status post fall. Patient has pain to her left hand left knee left ankle. Physical exam essentially nonremarkable. There is some tenderness to the involved areas. Overlying soft tissue intact. Extremities neurovascular tact distally. Compartments are soft. Cap refill less than 2 seconds. Patient received Toradol for pain control. X-rays of the involved areas are negative for fracture dislocations. Patient requesting Todd wrap to all areas involved. Patient otherwise says she is ready for discharge. Significant other at bedside. They voiced no other complaints or concerns at this time. Portions of this note were created with voice recognition technology. There may be grammatical, spelling, punctuation or sound alike errors Complexity of problems addressed is low acute uncomplicated Complaints of data reviewed and analyzed is moderate. Dr. Miranda independently reviewed the x-rays of the left hand left wrist and left knee left ankle. No obvious fracture dislocation observed. Formal read pending. Patient updated on the fact that formal read will occur tomorrow. Any discrepancies patient will be notified. Risk of complication and the risk of morbidity/mortality of patient management is moderate. A prescription for Toradol forwarded to patient's pharmacy. Patient discharged home. Todd wrap supplied. Patient neurovascular intact distally post application. Patient agrees to follow-up with her primary care doctor within 48 hours for reevaluation. Portions of this note were created with voice recognition technology. There may be grammatical, spelling, punctuation or sound alike errors 10/27/22 01:10 Counseled pt/family regarding: diagnosis, need for follow-up, rad results - Departure Departure Disposition: Home Clinical Impression: Fall, Hand contusion, Knee contusion, Ankle sprain Condition: Stable Critical Care Time: No Referrals: OMAR BENSON MD [Primary Care Provider] - Follow up/PCP as directed Additional Instructions: Discharge/Care Plan EVERETTLUCIAHIREN KAYLAH was seen on 10/27/22 in the Emergency Room. The patient was counseled regarding Diagnosis,Lab results, Imaging studies, need for follow up and when to return to the Emergency Room. Prescriptions given: Discharge Note I have spoken with the patient and/or caregivers. I have explained the patient's condition, diagnosis and treatment plan based on the information available to me at this time. I have answered the patient's and/or caregiver's questions and addressed any concerns. The patient and/or caregivers have as good understanding of the patient's diagnosis, condition and treatment plan as can be expected at this point. The vital signs have been stable. The patient's condition is stable and appropriate for discharge from the emergency department. The patient will pursue further outpatient evaluation with the primary care physician or other designated or consulting physician as outlined in the discharge instructions. The patient and/or caregivers are agreeable to this plan of care and follow-up instructions have been explained in detail. The patient and/or caregivers have received these instruction. The patient/and or caregivers are aware that any significant change in condition or worsening of symptoms should prompt an immediate return to this or the closest emergency department or call 911. Prescriptions: Ketorolac Trometh 10 mg Tab [TORAdol 10 MG TABLET] 10 mg PO TID 5 Days #15 tablet
[2022-10-27 01:06] VITALS: BP 87/58; PULSE 69; RESP 16
--- NOTE | 2022-10-27 08:54 | XRAY ---
Indication: Pain following fall. Comparison: August 17, 2022 3 view left hand unchanged again demonstrating osteopenia, mild degenerative changes all MP joints, mild/moderate 1st metacarpal multangular scaphoid degenerative changes, and radiocarpal joint space narrowing. No new/acute abnormalities.
--- NOTE | 2022-10-27 08:56 | XRAY ---
Indication: Pain following fall. Comparison: August 31, 2017 3 view left knee unchanged again demonstrating osteopenia, tiny suprapatella spurring, and minimal posterior vascular calcifications. No new/acute bony, articular, or soft tissue abnormalities.
--- NOTE | 2022-10-27 08:56 | XRAY ---
Indication: Pain following fall. Comparison: August 17, 2022 3 view left wrist unchanged again demonstrating osteopenia, mild/moderate 1st metacarpal multangular scaphoid degenerative changes, and radiocarpal joint space narrowing. No new/acute abnormalities.
--- NOTE | 2022-10-27 08:58 | XRAY ---
Indication: Pain following fall. Comparison: None 3 view left ankle demonstrates osteopenia, small plantar/tiny posterior heel spurs, and mild navicular cuneiform degenerative changes. No other bony, articular, or soft tissue abnormalities
== END 2022-10-27 01:31 | disposition home or self-care (01) ==
LOC: ED 20:52
DX: S60.222A Contusion of left hand, initial encounter (principal); S80.02XA Contusion of left knee, initial encounter; S93.402A Sprain of unspecified ligament of left ankle, initial encounter; W10.9XXA Fall (on) (from) unspecified stairs and steps, initial encounter; Y92.007 Garden or yard of unspecified non-institutional (private) residence as the place of occurrence of the external cause; E78.5 Hyperlipidemia, unspecified; E11.9 Type 2 diabetes mellitus without complications; Z79.4 Long term (current) use of insulin; Z79.84 Long term (current) use of oral hypoglycemic drugs; Z79.899 Other long term (current) drug therapy
CPT/HCPCS: 73110; 73130; 73562; 73610; 96372; 99283; J1885

== ENCOUNTER 2023-11-11 16:37 | Emergency (ER) | payer MEDICARE ==
--- NOTE | 2023-11-11 16:44 | ERPHSYRPT ---
- History of Present Illness Time Seen by Provider: 11/11/23 16:43 Source: patient, family, EMS, old records Exam Limitations: no limitations Physician History: This is a morbidly obese white female patient who was walking across the grass and tripped. She was brought into the emergency department by the flight hostess service. Additional, independent history was obtained from patient's friend as well as paramedics and review of old chart. Patient has difficulty walking at times and has fallen several times prompting her to be seen in the emergency department. Patient states when she fell she did hit her head but she did not lose consciousness. She has a headache, she has neck pain. She also complains of left shoulder pain, lower back pain and right lower leg pain. She does not have chest pain. She denies shortness of breath. She does not have abdominal p ain. Occurred: just prior to arrival Reason for Fall: tripped Injuries/Pain Location: head, neck, upper extremity (Left shoulder), lower extremity (Right lower leg) Loss of Consciousness: no loss of consciousness Quality: aching Severity of Pain-Max: mild Severity of Pain-Current: mild Modifying Factors: Improves With: movement Associated Symptoms (Fall): back pain (Lower back pain), extremity injury (Shoulder and right lower leg), neck pain, trouble walking (Chronically) Allergies/Adverse Reactions: famotidine [From Pepcid] Allergy (Severe, Verified 11/11/23 16:40) Vomiting insulin lispro [From Humalog] Allergy (Severe, Verified 11/11/23 16:40) Anaphylactic Reaction potassium chloride Allergy (Severe, Verified 11/11/23 16:40) Swelling of Tongue and Lips liquid potassium caused tongue swelling. pt takes tablets without issue propranolol [From Inderal LA] Allergy (Severe, Verified 11/11/23 16:40) Anaphylactic Reaction sumatriptan [From Imitrex] Allergy (Severe, Verified 11/11/23 16:40) Anaphylactic Reaction sumatriptan succinate [From Imitrex] Allergy (Severe, Verified 11/11/23 16:40) Anaphylactic Reaction procaine [From Novocain] Allergy (Intermediate, Verified 11/11/23 16:40) Swelling zolpidem [From Ambien] Allergy (Verified 11/11/23 16:40) Home Medications: Albuterol Sulfate [Proair Respiclick] 90 mcg IH QID 11/04/18 [History] Ascorbic Acid 500 mg [Vitamin C 500 MG] 500 mg PO DAILY 11/04/18 [History] Aspirin EC 81 mg [Ecotrin 81 mg] 81 mg PO DAILY 11/04/18 [History] Cyanocobalamin (Vitamin B-12) [Vitamin B-12] 500 mcg PO DAILY 11/04/18 [History] Ergocalciferol (Vitamin D2) [Drisdol] 50,000 unit PO WEEKLY 11/04/18 [History] Esomeprazole Magnesium [Nexium] 40 mg PO DAILY 11/04/18 [History] Furosemide 20 mg [Lasix 20 mg] 20 mg PO DAILY 11/04/18 [History] Glimepiride 4 mg [Amaryl 4 mg] 4 mg PO BID 11/04/18 [History] Insulin Aspart Prot/Insuln Asp [Novolog Mix 70-30 Flexpen Syrn] 26 unit SQ TID 11/04/18 [History] Levothyroxine Sodium 75 Mcg [Synthroid 75 Mcg] 75 mcg PO DAILY 11/04/18 [History] Lipase/Protease/Amylase [[place] Dr 24,000 Units Capsule] 2 each PO QID 11/04/18 [History] Loxapine Succinate [Loxapine] 10 mg PO BID 11/04/18 [History] Montelukast Sodium 10 mg [Singulair 10 MG] 10 mg PO DAILY 11/04/18 [History] Oxycodone HCl/Acetaminophen [Percocet 5-325 mg Tablet] 1 each PO QID 11/04/18 [History] Pioglitazone 30 mg [Actos 30 MG] 30 mg PO DAILY 11/04/18 [History] Polyethylene Glycol 3350 17 gm [Miralax Powder 17GM PACKET] 17 gm PO DAILY PRN PRN 11/04/18 [History] Potassium Chloride Tab* [Klor Con 10 MEQ] 10 meq PO TID 11/04/18 [History] Promethazine HCl 12.5 mg PO HS PRN PRN 11/04/18 [History] Topiramate 50 mg PO HS 08/03/19 [History] Cyclobenzaprine HCl 10 mg [Cyclobenzaprine 10 MG] 10 mg PO BID 08/01/20 [History] Gabapentin [Neurontin 300 mg] 600 mg PO TID 08/01/20 [History] Glucagon,Human Recombinant [Glucagen] 1 mg IJ UD 08/01/20 [History] Levocetirizine Dihydrochloride 5 mg PO BID 08/01/20 [History] Losartan Potassium [Cozaar] 25 mg PO BID 08/01/20 [History] Mirtazapine 30 mg [Remeron 30 mg] 30 mg PO BID 08/01/20 [History] haloperidoL [Haloperidol] 10 mg PO TID 08/01/20 [History] Hx Tetanus, Diphtheria Vaccination/Date Given: Yes Hx Influenza Vaccination/Date Given: Yes Hx Pneumococcal Vaccination/Date Given: Yes Travel Risk - International Travel Have you traveled outside of the country in past 3 weeks: No - Emerging Infectious Disease Are you exhibiting symptoms associated with any current EIDs: No - Review of Systems Constitutional: No Symptoms Eyes: No Symptoms Ears, Nose, & Throat: No Symptoms Respiratory: No Symptoms Cardiac: No Symptoms Abdominal/Gastrointestinal: No Symptoms Genitourinary Symptoms: No Symptoms Musculoskeletal: Back Pain, Neck Pain, Fall, Injury (Left shoulder and right lower leg) Skin: No Symptoms Neurological: Headache Psychological: No Symptoms Endocrine: No Symptoms Hematologic/Lymphatic: No Symptoms Immunological/Allergic: No Symptoms All Other Systems: Reviewed and Negative - Past Medical History Pertinent Past Medical History: Yes Neurological History: Other ENT History: Other Cardiac History: Arrhythmia, High Cholesterol Respiratory History: Asthma Endocrine Medical History: Diabetes Type II, Hypothyroidism Musculoskeletal History: Fractures, Osteoarthritis GI Medical History: Diverticulosis, GERD, Gallbladder Disease History: No Pertinent History Psycho-Social History: Anxiety, Bipolar, Depression, Other Female Reproductive Disorders: Fibroids Other Medical History: FX "RIGHT KNEE" AT AGE 15 WITH SCREW PLACEMENT. DX'D WITH PARKINSON'S YEARS AGO AND PER PATIENT ALSO WITH DEGENERATIVE MUSCLE DISEASE BUT NOT SURE OF NAME. ALSO HX OF ANXIETY, DEPRESSION AND BIPOLAR DISORDER/SCHIZOPHRENIA. HX OF HYPERTENSION BUT RECENTLY STOPPED MEDS PATIENT WAS HAVING LOW BLOOD PRESSURE ISSUES. - Past Surgical History Past Surgical History: Yes Neuro Surgical History: No Pertinent History Cardiac: No Pertinent History Respiratory: No Pertinent History Gastrointestinal: Cholecystectomy Genitourinary: No Pertinent History Musculoskeletal: Other Female Surgical History: Hysterectomy, Section Other Surgical History: surgery right foot pins/toes,right knee "rebuilt"-screw in place, fareed hands neuro/nerve surgeries,right wrist x two cyst removed and nerve reconstruction,left wrist also,right eye-[place] removed ?, x two, back surgery - Social History Smoking Status: Former smoker How long have you smoked: 12 Exposure to second hand smoke: Yes Drug Use: none Patient Lives Alone: No - Nursing Vital Signs Nursing Vital Signs: Initial Vital Signs Temperature 97 F 11/11/23 16:37 Pulse Rate 76 11/11/23 16:37 Respiratory Rate 17 11/11/23 16:37 Blood Pressure 115/77 11/11/23 16:37 O2 Sat by Pulse Oximetry 92 L 11/11/23 16:37 Pain Scale Pain Intensity 6 - [place] Coma Score Best Eye Response ([place]): (4) open spontaneously Best Verbal Response ([place]): (5) oriented Best Motor Response ([place]): (6) obeys commands [place] Total: 15 - Physical Exam General Appearance: no apparent distress, alert, obese Head Injury: no evidence of injury Eye Exam: PERRL/EOMI, eyes nml inspection ENT Exam: airway nml, nml ext.inspection, No evidence of ENT injury Neck Exam: trachea midline, normal alignment, normal inspection, c-collar in place Respiratory/Chest Exam: normal breath sounds, No chest tenderness, No respiratory distress, No ecchymosis, No crepitus Cardiovascular Exam: normal heart sounds, regular rate/rhythm Gastrointestinal Exam: soft, normal bowel sounds, No tenderness Rectal Exam: not done Back Exam: normal inspection, normal range of motion, No CVA tenderness, No vertebral tenderness Extremity Exam: normal inspection, normal range of motion, pelvis stable, bony point tenderness (Left shoulder and distal right lower leg), No deformities Neurologic Exam: alert, oriented x 3, cooperative, flight technician II-XII nml as tested, sensation nml Skin Exam: normal color, warm, dry SpO2 Interpretation: normal O2 Delivery: Room Air - Course Nursing assessment & vital signs reviewed: Yes Ordered Tests: Active Orders 24 hr Category Date Time Status CERVICAL SPINE WO CONTRAST [CT] Stat Exams 11/11/23 17:33 Taken HEAD WITHOUT CONTRAST [CT] Stat Exams 11/11/23 17:33 Taken LOWER LEG Stat Exams 11/11/23 17:34 Taken LUMBAR LIMITED (2 OR 3 VIEWS) Stat Exams 11/11/23 17:35 Taken SHOULDER Stat Exams 11/11/23 17:34 Taken - Progress Progress: improved, pain not gone completely Progress Note: 11/11/23 17:46 My medical decision making and the assignment of low to moderate complexity of this patient's medical issue today is based on review of the patient's past medical history, review of the patient's medication list, review the patient drug allergy list, history present illness and physical findings on examination. The workup in this patient includes CT scan of the head and cervical spine without contrast. In addition, we are x-raying the lumbar spine, left shoulder and right lower leg. Differential diagnosis includes but is not limited to intracranial abnormality, skull fracture, head contusion, cervical spine fracture/subluxation, cervical strain, left shoulder sprain/contusion/fracture/dislocation, right lower leg contusion/fracture/dislocation 11/11/23 18:38 The plain x-ray film preliminary reports were interpreted by me: The L-spine x-ray shows no acute fracture or subluxation. The left shoulder x-ray shows no acute fracture or dislocation. Right lower leg x-ray shows no acute fracture or dislocation. 11/11/23 19:[address] scan of the head without contrast was interpreted by the radiologist and I reviewed the impression. The impression states normal CT scan of the head without contrast. 11/11/23 19:13 T scan of the cervical spine without contrast was interpreted by the radiologist and I reviewed the impression. There are no comparison studies available. The patient has degenerative disc disease. No acute fracture or subluxation. Otherwise negative C-spine. Counseled pt/family regarding: diagnosis, need for follow-up, rad results Medical Desision Making - Independent Historian Additional History obtained from: Relative/friend - Diagnostic Testing Diagnostic test were ordered, analyzed, and reviewed by me: Yes Radiological Interpretation: Interpreted by me, Reviewed by me, Teleradiologist Report - Risk of complications Low Risk: Low risk of morbidity from additional dx testing or treatment - Departure Departure Disposition: Home Clinical Impression: Fall with no significant injury, Multiple contusions Condition: Stable Critical Care Time: No Referrals: OMAR BENSON MD [Primary Care Provider] - Follow up/PCP as directed Additional Instructions: Drink plenty of clear liquid and then advance diet slowly. Take all your medications as tolerated except hold your any of your sedating medications for 24 hours. If there are no contraindications, use Tylenol and ibuprofen for pain control. Ice pack to tender areas 3-4 times a day for the next 72 hours. Call your primary care provider on 11/14/2023 to make arrangements for follow- up appointment for further evaluation and management.
[2023-11-11 17:27] VITALS: RESP 15; TEMP 97
[2023-11-11 19:21] VITALS: BP 104/71; PULSE 80; O2SAT 96
--- NOTE | 2023-11-11 20:36 | XRAY ---
Indication: Status post fall with injury. Multiple contiguous axial images obtained through the head without contrast. Comparison: None Normal appearing brain parenchyma, ventricles, and bony calvarium for patient's age. Visualized paranasal sinuses and mastoid air cells are clear. Impression: Normal CT head without contrast exam.
--- NOTE | 2023-11-11 20:38 | XRAY ---
Indication: Status post fall with injury. Multiple contiguous axial images obtained through the cervical spine. Sagittal and coronal reformatted images obtained. Comparison: None Osseous structures are mineralized. Axial images negative for acute fracture, suspicious bony lesions, or spinal canal stenosis. Minimal/mild C3-C7 degenerative endplate spurring and mild multilevel bilateral degenerative facet hypertrophy. Sagittal and coronal reformatted images demonstrates lordotic straightening and C5-C7 disc space narrowing. No acute fracture, subluxation, or jumped facet. Normal appearing craniocervical junction. Patient is edentulous. Visualized noncontrasted soft tissues demonstrates right thyroidectomy. Lung apices demonstrates right apical calcific granuloma. Impression: 1. Negative acute fracture/subluxation. 2. Osteopenia and multilevel degenerative changes. 3. Incidental right thyroidectomy and right apical calcified granuloma.
--- NOTE | 2023-11-11 20:40 | XRAY ---
Indication: Pain following fall. Comparison: None 3 view left shoulder demonstrates osteopenia and mild AC degenerative changes. No other bony, articular, or soft tissue abnormalities.
--- NOTE | 2023-11-11 20:42 | XRAY ---
Indication: Pain following fall. Comparison: None 2 view right lower leg demonstrates osteopenia, mild tricompartmental degenerative arthropathy, small posterior heel spur, and intact proximal tibial orthopedic screw. No other bony, articular, or soft tissue abnormalities.
--- NOTE | 2023-11-11 20:42 | XRAY ---
Indication: Pain following fall. Comparison: None 3 view lumbar spine demonstrates 5 lumbar segments in normal alignment with osteopenia, mild/moderate multilevel thoracolumbar degenerative spondylosis, L5-S1 fusion with intact bilateral posterior hardware/intravertebral spacers, mild scattered aortic calcifications, cholecystectomy clips, and right lower back electronic stimulator device with leads. No other bony, articular, or soft tissue abnormalities. Impression: Nonacute lumbar spine with chronic features.
== END 2023-11-11 19:29 | disposition home or self-care (01) ==
LOC: ED 16:37
DX: Z04.3 Encounter for examination and observation following other accident (principal); S40.012A Contusion of left shoulder, initial encounter; S80.11XA Contusion of right lower leg, initial encounter; W01.0XXA Fall on same level from slipping, tripping and stumbling without subsequent striking against object, initial encounter; Y93.01 Activity, walking, marching and hiking; R51.9 Headache, unspecified; M54.2 Cervicalgia; M54.50 Low back pain, unspecified; E78.5 Hyperlipidemia, unspecified; E11.9 Type 2 diabetes mellitus without complications; Z79.84 Long term (current) use of oral hypoglycemic drugs; Z79.4 Long term (current) use of insulin; Z79.899 Other long term (current) drug therapy
CPT/HCPCS: 70450; 72100; 72125; 73030; 73590; 99283

== ENCOUNTER 2023-12-10 13:15 | Emergency (ER) | payer MEDICARE ==
[2023-12-10 13:39] VITALS: TEMP 96
[2023-12-10] MEDS ORDERED: Sodium Chloride 0.9% 1000 ML 1,000 ML ONE (13:58)
[2023-12-10] MEDS: Sodium Chloride 0.9% 1000 ML 1,000 ML IV STA (13:59)
--- NOTE | 2023-12-10 14:19 | ERPHSYRPT ---
- History of Present Illness Time Seen by Provider: 12/10/23 14:17 Source: patient, family Exam Limitations: clinical condition Patient Subjective Stated Complaint: pt reports she has been feeling "weird" beginning yesterday. pt reports low BP and blood sugar at home but states she has not checked either today. pt reports bilat shoulder pain that is chronic in nature. Triage Nursing Assessment: pt is aox3, pt with slow steady gait with use of a walker, pt arrives with partner, pupils perrl, afebrile, resps easy and non labored, cap refill < 3 seconds, pt pale warm dry. pt is hypotensive upon arrival, blood sugar is normal at bedside. Physician History: pt reports she has been feeling "weird" beginning yesterday. pt reports low BP and blood sugar at home but states she has not checked either today. pt reports bilat shoulder pain Patient is a 58-year-old female with significant past medical history of recurrent hypertension history of hypertension has not been feeling well for last 3 to 4 days. She is complaining of weakness and lethargy. She is also complaining of fevers chills. She denies any blood in the stool or urine. She denies any heavy pressure type of chest pain or shortness of breath. Timing/Duration: day(s) (Three days) Nitro Today/Relief: no nitro taken today Aspirin Treatment Today: no aspirin today Associated Symptoms: diaphoresis, chills, fever, malaise, weakness, No nausea, No vomiting, No abdominal pain, No shortness of breath, No heartburn, No cough, No chest pain, No headaches, No loss of appetite, No syncope, No seizure Allergies/Adverse Reactions: famotidine [From Pepcid] Allergy (Severe, Verified 12/10/23 15:17) Vomiting insulin lispro [From Humalog] Allergy (Severe, Verified 12/10/23 15:17) Anaphylactic Reaction potassium chloride Allergy (Severe, Verified 12/10/23 15:17) Swelling of Tongue and Lips liquid potassium caused tongue swelling. pt takes tablets without issue propranolol [From Inderal LA] Allergy (Severe, Verified 12/10/23 15:17) Anaphylactic Reaction sumatriptan [From Imitrex] Allergy (Severe, Verified 12/10/23 15:17) Anaphylactic Reaction sumatriptan succinate [From Imitrex] Allergy (Severe, Verified 12/10/23 15:17) Anaphylactic Reaction zolpidem [From Ambien] Allergy (Verified 12/10/23 15:17) Home Medications: Ascorbic Acid 500 mg [Vitamin C 500 MG] 500 mg PO DAILY 11/04/18 [History] Furosemide 20 mg [Lasix 20 mg] 40 mg PO DAILY 11/04/18 [History] Levothyroxine Sodium 75 Mcg [Synthroid 75 Mcg] 75 mcg PO DAILY 11/04/18 [History] Lipase/Protease/Amylase [Armando Zuleta 24,000 Units Capsule] 2 each PO QID 11/04/18 [History] Montelukast Sodium 10 mg [Singulair 10 MG] 10 mg PO DAILY 11/04/18 [History] Potassium Chloride Tab* [Klor Con 10 MEQ] 10 meq PO BID 11/04/18 [History] Topiramate 50 mg PO HS 11/04/18 [History] Gabapentin [Neurontin 300 mg] 600 mg PO TID 08/01/20 [History] Levocetirizine Dihydrochloride 5 mg PO DAILY 08/01/20 [History] Losartan Potassium [Cozaar] 50 mg PO HS 08/01/20 [History] haloperidoL [Haloperidol] 10 mg PO TID 08/01/20 [History] Carvedilol [Coreg ] 6.25 mg PO BID 12/10/23 [History] Dulaglutide [Trulicity] 1.5 mg SQ WEEKLY 12/10/23 [History] Ergocalciferol (Vitamin D2) [Vitamin D2] 50,000 unit PO Q7D 12/10/23 [History] Esomeprazole Magnesium 40 mg PO DAILY 12/10/23 [History] Haloperidol [Haldol] 5 mg PO UD 12/10/23 [History] Hydroxyzine HCl 25 mg [Atarax 25 mg] 25 mg PO TID PRN 12/10/23 [History] Insulin Degludec [Tresiba] 70 units SQ QAM 12/10/23 [History] Lactulose 15 ml PO BID 12/10/23 [History] Meclizine HCl 25 mg [Antivert 25 mg] 12.5 mg PO TID PRN 12/10/23 [History] Metoprolol Succinate 25 mg PO DAILY 12/10/23 [History] Oxycodone HCl/Acetaminophen [Oxycodone-Acetaminophn 7.5-325] 1 each PO QID 12/10/23 [History] Paliperidone [Paliperidone ER] 6 mg PO DAILY 12/10/23 [History] Ropinirole HCl 0.25 mg PO HS 12/10/23 [History] Ropinirole HCl 5 mg PO UD 12/10/23 [History] Rosuvastatin Calcium 40 mg PO HS 12/10/23 [History] Trazodone HCl 50 mg [Desyrel 50 mg] 300 mg PO HS 12/10/23 [History] Trihexyphenidyl HCl 5 mg PO BID 12/10/23 [History] Hx Tetanus, Diphtheria Vaccination/Date Given: Yes Hx Influenza Vaccination/Date Given: Yes Hx Pneumococcal Vaccination/Date Given: No Immunizations Up to Date: Yes Travel Risk - International Travel Have you traveled outside of the country in past 3 weeks: No - Emerging Infectious Disease Are you exhibiting symptoms associated with any current EIDs: No - Review of Systems Constitutional: Fever, Chills, Fatigue, Lethargy, Malaise, Weakness Eyes: No Symptoms Ears, Nose, & Throat: No Symptoms Respiratory: No Cough, No Dyspnea Cardiac: No Chest Pain, No Edema, No Syncope Abdominal/Gastrointestinal: No Abdominal Pain, No Nausea, No Vomiting, No Diarrhea Genitourinary Symptoms: No Dysuria Musculoskeletal: No Back Pain, No Neck Pain Skin: No Rash Neurological: No Dizziness, No Focal Weakness, No Sensory Changes Psychological: No Symptoms Endocrine: No Symptoms All Other Systems: Reviewed and Negative - Past Medical History Pertinent Past Medical History: Yes Neurological History: Other ENT History: Other Cardiac History: Arrhythmia, High Cholesterol Respiratory History: Asthma Endocrine Medical History: Diabetes Type II, Hypothyroidism Musculoskeletal History: Fractures, Osteoarthritis GI Medical History: Diverticulosis, GERD, Gallbladder Disease History: No Pertinent History Psycho-Social History: Anxiety, Bipolar, Depression, Other Female Reproductive Disorders: Fibroids Other Medical History: FX "RIGHT KNEE" AT AGE 15 WITH SCREW PLACEMENT. DX'D WITH PARKINSON'S YEARS AGO AND PER PATIENT ALSO WITH DEGENERATIVE MUSCLE DISEASE BUT NOT SURE OF NAME. ALSO HX OF ANXIETY, DEPRESSION AND BIPOLAR DISORDER/SCHIZOPHRENIA. HX OF HYPERTENSION BUT RECENTLY STOPPED MEDS PATIENT WAS HAVING LOW BLOOD PRESSURE ISSUES. - Past Surgical History Past Surgical History: Yes Neuro Surgical History: No Pertinent History Cardiac: No Pertinent History Respiratory: No Pertinent History Gastrointestinal: Cholecystectomy Genitourinary: No Pertinent History Musculoskeletal: Other Female Surgical History: Hysterectomy, Section Other Surgical History: surgery right foot pins/toes,right knee "rebuilt"-screw in place, fareed hands neuro/nerve surgeries,right wrist x two cyst removed and nerve reconstruction,left wrist also,right eye-[place] removed ?, x two, back surgery - Social History Smoking Status: Former smoker How long have you smoked: 12 Exposure to second hand smoke: Yes Drug Use: none Patient Lives Alone: No - Social Determinants of Health Will the patient participate in the screening: Yes Do you worry about a steady place to live?: No Do you have any problems with any of the following?: No known problems In the past 12 months,have you had to go without utilities?: No Transportation Issues: No Has anyone in your support network made you feel unsafe?: No Have you or anyone in your house had to go without enough: No - Nursing Vital Signs Nursing Vital Signs: Initial Vital Signs Temperature 96 F 12/10/23 13:27 Pulse Rate 72 12/10/23 13:27 Respiratory Rate 16 12/10/23 13:27 Blood Pressure 76/57 12/10/23 13:27 O2 Sat by Pulse Oximetry 99 12/10/23 13:27 Pain Scale Pain Intensity 0 - Physical Exam General Appearance: mild distress, alert Eye Exam: PERRL/EOMI, eyes nml inspection Ears, Nose, Throat Exam: normal ENT inspection, moist mucous membranes Neck Exam: normal inspection, non-tender, supple Respiratory Exam: normal breath sounds, lungs clear, No respiratory distress Cardiovascular Exam: regular rate/rhythm, normal heart sounds, No edema Gastrointestinal/Abdomen Exam: soft, No tenderness, No mass Back Exam: normal inspection, No CVA tenderness, No vertebral tenderness Extremity Exam: normal inspection, normal range of motion Neurologic Exam: alert, oriented x 3, cooperative, normal mood/affect, nml cerebellar function, sensation nml, No motor deficits Skin Exam: normal color, warm, dry Lymphatic Exam: No adenopathy SpO2: 99 Ordered Tests: Active Orders 24 hr Category Date Time Status Home Health Outreach Coordinator STAT Care 12/10/23 13:50 Active EKG-ER Only STAT Care 12/10/23 13:49 Active Orthostatic Vital Signs STAT Care 12/10/23 13:46 Active POCT Glucose Check STAT Care 12/10/23 13:41 Active CHEST 1 VIEW (PORTABLE) Stat Exams 12/10/23 16:11 Taken CBC W DIFF Stat Lab 12/10/23 15:40 Completed CMP Stat Lab 12/10/23 15:40 Completed MAGNESIUM Stat Lab 12/10/23 15:40 Completed NT PRO BNPII Stat Lab 12/10/23 15:40 Completed POCT GLUCOSE Stat Lab 12/10/23 13:26 Completed TROPONIN Q4H Lab 12/10/23 15:40 Completed TROPONIN Q4H Lab 12/10/23 18:00 Ordered TROPONIN Q4H Lab 12/10/23 22:00 Ordered UA W/RFX UR CULTURE Stat Lab 12/10/23 14:44 Completed Medication Summary Discontinued Medications Generic Name Dose Route Start Last Admin Trade Name Justin PRN Reason Stop Dose Admin Sodium Chloride 1,000 mls @ 999 mls/hr 12/10/23 13:49 12/10/23 15:59 Sodium Chloride 0.9% 1000 Ml IV 12/10/23 14:49 Infused .Q1H1M STA Infusion Sodium Chloride Confirm 12/10/23 13:58 Sodium Chloride 0.9% 1000 Ml Administered 12/10/23 13:59 Dose 1,000 mls @ ud .ROUTE .K-MED ONE Lab/Rad Data: Laboratory Result Diagrams 12/10/23 15:40 12/10/23 15:40 Laboratory Results 12/10/23 12/10/23 12/10/23 Range/Units 15:56 15:40 15:40 WBC (3.98-10.04) x10^3/uL RBC (3.93-5.22) x10^6/uL Hgb (11.2-15.7) g/dL Hct (34.1-44.9) % MCV (79.4-94.8) fL MCH (25.6-32.2) pg MCHC (32.2-35.5) g/dL RDW (11.7-14.4) % Plt Count (182-369) x10^3/uL MPV (9.4-12.3) fL Gran % (34.0-71.1) % Immature Gran % (Auto) (0.001-0.429) % Nucleat RBC Rel Count (0.00-0.2) % Eos # (Auto) (0.04-0.36) x10^3/uL Immature Gran # (Auto) (0.001-0.031) x10^3u/L Absolute Lymphs (auto) (1.18-3.74) x10^3/uL Absolute Monos (auto) (0.24-0.86) x10^3/uL Absolute Nucleated RBC (0.00-0.012) x10^3u/L Lymphocytes % (19.3-51.7) % Monocytes % (4.7-12.5) % Eosinophils % (0.7-5.8) % Basophils % (0.1-1.2) % Absolute Granulocytes (1.56-6.13) x10^3/uL Basophils # (0.01-0.08) x10^3/uL Sodium 141 (135-145) mmol/L Potassium 3.6 (3.5-5.1) mmol/L Chloride 104 (98-107) mmol/L Carbon Dioxide 29 (22-30) mmol/L Anion Gap 10.5 (5-15) MEQ/L BUN 8 (7-17) mg/dL Creatinine 0.90 (0.52-1.04) mg/dL Estimated GFR 73.6 ML/MIN Glucose 88 (74-106) mg/dL POC Glucometer (74 to 106) mg/dL Calcium 9.0 (8.4-10.2) mg/dL Magnesium 2.1 (1.6-2.3) mg/dL Total Bilirubin 0.40 (0.2-1.3) mg/dL AST 19 (14-36) U/L ALT 17 (0-35) U/L Alkaline Phosphatase 87 (38-126) U/L Troponin I < 0.012 (0.000-0.033) ng/mL NT-Pro-B Natriuret Pep 96.8 (<300) pg/mL Serum Total Protein 6.3 (6.3-8.2) g/dL Albumin 3.8 (3.5-5.0) g/dL Urine Color (Yellow) Urine Appearance (Clear) Urine pH (4.6-8.0) Ur Specific [place] (1.005-1.030) Urine Protein (Negative) Urine Glucose (UA) (Negative) mg/dL Urine Ketones (Negative) Urine Blood (Negative) Urine Nitrite (Negative) Urine Bilirubin (Negative) Urine Urobilinogen (0.2) mg/dL Ur Leukocyte Esterase (Negative) U Hyaline Cast (Auto) (0-2) /LPF Urine Microscopic RBC (0-5) /HPF Urine Microscopic WBC (0-5) /HPF Ur Epithelial Cells (None Seen) /HPF Urine Bacteria (None Seen) /HPF Urine Culture Reflexed (NO) Influenza Type A Ag NEGATIVE (NEGATIVE) Influenza Type B Ag NEGATIVE (NEGATIVE) RSV (PCR) NEGATIVE (NEGATIVE) SARS-CoV-2 (PCR) NEGATIVE (NEGATIVE) 12/10/23 12/10/23 12/10/23 Range/Units 15:40 14:44 13:26 WBC 6.3 (3.98-10.04) x10^3/uL RBC 5.19 (3.93-5.22) x10^6/uL Hgb 13.9 (11.2-15.7) g/dL Hct 44.0 (34.1-44.9) % MCV 84.8 (79.4-94.8) fL MCH 26.8 (25.6-32.2) pg MCHC 31.6 L (32.2-35.5) g/dL RDW 15.0 H (11.7-14.4) % Plt Count 162 L (182-369) x10^3/uL MPV 11.0 (9.4-12.3) fL Gran % 53.6 (34.0-71.1) % Immature Gran % (Auto) 0.3 (0.001-0.429) % Nucleat RBC Rel Count 0.0 (0.00-0.2) % Eos # (Auto) 0.09 (0.04-0.36) x10^3/uL Immature Gran # (Auto) 0.02 (0.001-0.031) x10^3u/L Absolute Lymphs (auto) 2.23 (1.18-3.74) x10^3/uL Absolute Monos (auto) 0.55 (0.24-0.86) x10^3/uL Absolute Nucleated RBC 0.00 (0.00-0.012) x10^3u/L Lymphocytes % 35.7 (19.3-51.7) % Monocytes % 8.8 (4.7-12.5) % Eosinophils % 1.4 (0.7-5.8) % Basophils % 0.2 (0.1-1.2) % Absolute Granulocytes 3.35 (1.56-6.13) x10^3/uL Basophils # 0.01 (0.01-0.08) x10^3/uL Sodium (135-145) mmol/L Potassium (3.5-5.1) mmol/L Chloride (98-107) mmol/L Carbon Dioxide (22-30) mmol/L Anion Gap (5-15) MEQ/L BUN (7-17) mg/dL Creatinine (0.52-1.04) mg/dL Estimated GFR ML/MIN Glucose (74-106) mg/dL POC Glucometer 85 (74 to 106) mg/dL Calcium (8.4-10.2) mg/dL Magnesium (1.6-2.3) mg/dL Total Bilirubin (0.2-1.3) mg/dL AST (14-36) U/L ALT (0-35) U/L Alkaline Phosphatase (38-126) U/L Troponin I (0.000-0.033) ng/mL NT-Pro-B Natriuret Pep (<300) pg/mL Serum Total Protein (6.3-8.2) g/dL Albumin (3.5-5.0) g/dL Urine Color Yellow (Yellow) Urine Appearance Clear (Clear) Urine pH 7.0 (4.6-8.0) Ur Specific [place] <=1.005 (1.005-1.030) Urine Protein Negative (Negative) Urine Glucose (UA) Negative (Negative) mg/dL Urine Ketones Negative (Negative) Urine Blood Negative (Negative) Urine Nitrite Negative (Negative) Urine Bilirubin Negative (Negative) Urine Urobilinogen 0.2 (0.2) mg/dL Ur Leukocyte Esterase Trace A (Negative) U Hyaline Cast (Auto) NONE SEEN (0-2) /LPF Urine Microscopic RBC 0-2 (0-5) /HPF Urine Microscopic WBC 0-2 (0-5) /HPF Ur Epithelial Cells None Seen (None Seen) /HPF Urine Bacteria None Seen (None Seen) /HPF Urine Culture Reflexed NO (NO) Influenza Type A Ag (NEGATIVE) Influenza Type B Ag (NEGATIVE) RSV (PCR) (NEGATIVE) SARS-CoV-2 (PCR) (NEGATIVE) - Departure Departure Disposition: Home Clinical Impression: Weakness Hypotension Qualifiers: Hypotension type: hypotension due to drug Qualified Code(s): I95.2 - Hypotension due to drugs Condition: Stable Critical Care Time: No Referrals: OMAR BENSON MD [Primary Care Provider] - Follow up/PCP as directed Instructions: Orthostatic Hypotension (DC) Additional Instructions: Hold your water pill (lasix-Furosemide) See your primary care physician in 2-3 days. Discharge/Care Plan HIREN BENSON was seen on 12/10/23 in the Emergency Room. The patient was counseled regarding Diagnosis,Lab results, Imaging studies, need for follow up and when to return to the Emergency Room. Prescriptions given: Discharge Note I have spoken with the patient and/or caregivers. I have explained the patient's condition, diagnosis and treatment plan based on the information available to me at this time. I have answered the patient's and/or caregiver's questions and addressed any concerns. The patient and/or caregivers have as good understanding of the patient's diagnosis, condition and treatment plan as can be expected at this point. The vital signs have been stable. The patient's condition is stable and appropriate for discharge from the emergency department. The patient will pursue further outpatient evaluation with the primary care physician or other designated or consulting physician as outlined in the discharge instructions. The patient and/or caregivers are agreeable to this plan of care and follow-up instructions have been explained in detail. The patient and/or caregivers have received these instruction. The patient/and or caregivers are aware that any significant change in condition or worsening of symptoms should prompt an immediate return to this or the closest emergency department or call 911. HIREN BENSON was seen on 12/10/23 n the Emergency Room. At that time you were treated for an emergent condition, during your visit Laboratory, Radiology and/or other procedures may have been ordered. It is very important that you follow-up with your Primary Care Physician OMAR BENSON within the next 24-48 hours to review your Emergency Room visit and the final results of testing that was ordered. Some test results such as Urine Cultures, Blood Cultures, and other cultures if ordered will not be finalized for 24-48 hours. If you do not have a Primary Care Provider please call the medical records department at [phone] ext [phone] to obtain a copy of your results or you may sign into our patient portal to obtain these results by visiting us @ [email or web address] and completing the following steps: 1. Click on the Patient Portal link 2. Click the Patient Self Enrollment Link to complete the enrollment form and entering your 3. Once the enrollment form is completed you will receive an email with a temporary ID and password at the email address you provided. 4. Next choose a user name and password. Your user name must be at least 4 characters long and your password must be at least 4 characters long. 5. Choose a security question from the list and provide your answer to the question. If you already have signed into the Health Portal you may access your Health Care Information 25/10 by the following steps: 1. Login to our website @ [email or web address] 2. Enter your original user name and password. FAQS The [facility] Health Portal is an online tool that contains your Lab Results, Radiology Reports, Visit History, Discharge Instructions and Health Summary Lab and Radiology Results will not be available for 72 hours on the portal. The Portal is a secure site, passwords are encryted and URLs are re-written so they cannot be copied and pasted. You and authorized family members are the only ones who can access your Portal. Also there is a timeout feature that protects your information if you leave the Portal page open. If you have technical difficulty please use the Contact Us link on the page this will allow you to submit any questions you have regarding the Portal or you may contact the Medical Record Department at [phone].
[2023-12-10 15:33] LABS: Appearance Clear (Clear); Bacteria None Seen /HPF (None Seen); Bilirubin Negative (Negative); Blood Negative (Negative); Epithelial Cells None Seen /HPF (None Seen); Glucose, Urine Negative (Negative); Hyaline Casts NONE SEEN /LPF (0-2); Ketones Negative (Negative); Leukocyte Esterase Trace (Negative); Nitrite Negative (Negative); Protein,Urine Dip Negative (Negative); RBC 0-2 /HPF (0-5); Specific Gravity <=1.005 (1.005-1.030); Urobilinogen 0.2 mg/dL (0.2); WBC 0-2 /HPF (0-5)
[2023-12-10 15:36] LABS: ADD URINE CULTURE? NO (NO)
[2023-12-10 15:52] LABS: Absolute Neutrophil Ct (ANC) 3.35 x10^3/uL (1.56-6.13); BASOPHIL % 0.2 % (0.1-1.2); Basophil (Absolute #) 0.01 x10^3/uL (0.01-0.08); Eosinophil % 1.4 % (0.7-5.8); Eosinophil (Absolute #) 0.09 x10^3/uL (0.04-0.36); Hemoglobin 13.9 g/dL (11.2-15.7); IMMATURE GRAN # 0.02 x10^3u/L (0.001-0.031); IMMATURE GRAN % 0.3 % (0.001-0.429); Lymphocyte (Absolute #) 2.23 x10^3/uL (1.18-3.74); Lymphocytes % 35.7 % (19.3-51.7); Mean Cell Volume 84.8 fL (79.4-94.8); Mean Corpuscular Hemoglobin 26.8 pg (25.6-32.2); Mean Corpuscular Hgb Concent. 31.6 g/dL (32.2-35.5); Monocyte (Absolute #) 0.55 x10^3/uL (0.24-0.86); Monocytes % 8.8 % (4.7-12.5); Neutrophil % 53.6 % (34.0-71.1); Platelet Count 162 x10^3/uL (182-369); Red Blood Count 5.19 x10^6/uL (3.93-5.22); White Blood Count 6.3 x10^3/uL (3.98-10.04)
[2023-12-10 16:15] LABS: ALBUMIN 3.8 g/dL (3.5-5.0); ANION GAP 10.5 MEQ/L (5-15); BILIRUBIN,TOTAL 0.4 mg/dL (0.2-1.3); Creatinine 1 0.9 mg/dL (0.52-1.04); EST GLOMERULAR FILTRATION RATE 73.6 ML/MIN; MAGNESIUM 2.1 mg/dL (1.6-2.3); NT PRO BNPII 96.8 pg/mL (<300); Potassium 3.6 mmol/L (3.5-5.1); Total Protein 6.3 g/dL (6.3-8.2)
[2023-12-10 17:06] VITALS: BP 123/81; PULSE 68; RESP 18
[2023-12-10 17:11] LABS: INFLUENZA A NEGATIVE (NEGATIVE); INFLUENZA B NEGATIVE (NEGATIVE); RESPIRATORY SYNCTIAL VIRUS NEGATIVE (NEGATIVE); SARS-CoV-2 Xpert Express NEGATIVE (NEGATIVE)
[2023-12-10 17:17] VITALS: O2SAT 99
--- NOTE | 2023-12-10 20:43 | XRAY ---
Indication: Weakness. Comparison: July 01, 2023 Portable chest remains inflated and clear with incidental right apical calcified granuloma. Heart not enlarged. Bony thorax intact again with osteopenia, degenerative changes, and right neck suture material. Impression: Continued nonacute chest with chronic features.
== END 2023-12-10 17:30 | disposition home or self-care (01) ==
LOC: ED 13:15
DX: I95.2 Hypotension due to drugs (principal); R53.1 Weakness; R53.83 Other fatigue; M25.511 Pain in right shoulder; M25.512 Pain in left shoulder; E78.5 Hyperlipidemia, unspecified; E11.9 Type 2 diabetes mellitus without complications; Z79.85 Long-term (current) use of injectable non-insulin antidiabetic drugs; Z79.4 Long term (current) use of insulin; Z79.891 Long term (current) use of opiate analgesic; Z79.899 Other long term (current) drug therapy
CPT/HCPCS: 0241U; 36415; 71045; 80053; 81001; 82947; 83735; 83880; 84484; 85025; 93005; 93041; 96360; 99284

== ENCOUNTER 2023-12-30 08:16 | Emergency (ER) | payer MEDICARE ==
--- NOTE | 2023-12-30 08:37 | ERPHSYRPT ---
- History of Present Illness Time Seen by Provider: 12/30/23 08:20 Source: patient, family Exam Limitations: clinical condition Patient Subjective Stated Complaint: Fall with back pain Physician History: 78-year-old female presents to the ED with concerns of a fall which happened about 1 hour prior to presentation. Patient states that she accidentally tripped on her foot and fell. She also reports that she fell yesterday again. Patient states that she feels generally weak. She also reports that she hit the back of her head to the ground as well as her mid back. Pain is currently rated at 8 out of 10. She has taken nothing for symptomatic relief of the pain. Patient reports that she did not pass out. She denies any abdominal pain, nausea or vomiting. She denies any cough congestion or shortness of breath. Timing/Duration: today Severity: moderate Modifying Factors: Improves With: immobilization Associated Symptoms: denies symptoms Allergies/Adverse Reactions: famotidine [From Pepcid] Allergy (Severe, Verified 12/30/23 08:39) Vomiting insulin lispro [From Humalog] Allergy (Severe, Verified 12/30/23 08:39) Anaphylactic Reaction potassium chloride Allergy (Severe, Verified 12/30/23 08:39) Swelling of Tongue and Lips liquid potassium caused tongue swelling. pt takes tablets without issue propranolol [From Inderal LA] Allergy (Severe, Verified 12/30/23 08:39) Anaphylactic Reaction sumatriptan [From Imitrex] Allergy (Severe, Verified 12/30/23 08:39) Anaphylactic Reaction sumatriptan succinate [From Imitrex] Allergy (Severe, Verified 12/30/23 08:39) Anaphylactic Reaction zolpidem [From Ambien] Allergy (Verified 12/30/23 08:39) Home Medications: Ascorbic Acid 500 mg [Vitamin C 500 MG] 500 mg PO DAILY 11/04/18 [History] Furosemide 20 mg [Lasix 20 mg] 40 mg PO DAILY 11/04/18 [History] Levothyroxine Sodium 75 Mcg [Synthroid 75 Mcg] 75 mcg PO DAILY 11/04/18 [History] Lipase/Protease/Amylase [Armando Zuleta 24,000 Units Capsule] 2 each PO QID 11/04/18 [History] Montelukast Sodium 10 mg [Singulair 10 MG] 10 mg PO DAILY 11/04/18 [History] Potassium Chloride Tab* [Klor Con 10 MEQ] 10 meq PO BID 11/04/18 [History] Topiramate 50 mg PO HS 11/04/18 [History] Gabapentin [Neurontin 300 mg] 600 mg PO TID 08/01/20 [History] Levocetirizine Dihydrochloride 5 mg PO DAILY 08/01/20 [History] Losartan Potassium [Cozaar] 50 mg PO HS 08/01/20 [History] haloperidoL [Haloperidol] 10 mg PO TID 08/01/20 [History] Carvedilol [Coreg ] 6.25 mg PO BID 12/10/23 [History] Dulaglutide [Trulicity] 1.5 mg SQ WEEKLY 12/10/23 [History] Ergocalciferol (Vitamin D2) [Vitamin D2] 50,000 unit PO Q7D 12/10/23 [History] Esomeprazole Magnesium 40 mg PO DAILY 12/10/23 [History] Haloperidol [Haldol] 5 mg PO UD 12/10/23 [History] Hydroxyzine HCl 25 mg [Atarax 25 mg] 25 mg PO TID PRN 12/10/23 [History] Insulin Degludec [Tresiba] 70 units SQ QAM 12/10/23 [History] Lactulose 15 ml PO BID 12/10/23 [History] Meclizine HCl 25 mg [Antivert 25 mg] 12.5 mg PO TID PRN 12/10/23 [History] Metoprolol Succinate 25 mg PO DAILY 12/10/23 [History] Oxycodone HCl/Acetaminophen [Oxycodone-Acetaminophn 7.5-325] 1 each PO QID 12/10/23 [History] Paliperidone [Paliperidone ER] 6 mg PO DAILY 12/10/23 [History] Ropinirole HCl 0.25 mg PO HS 12/10/23 [History] Ropinirole HCl 5 mg PO UD 12/10/23 [History] Rosuvastatin Calcium 40 mg PO HS 12/10/23 [History] Trazodone HCl 50 mg [Desyrel 50 mg] 300 mg PO HS 12/10/23 [History] Trihexyphenidyl HCl 5 mg PO BID 12/10/23 [History] Hx Tetanus, Diphtheria Vaccination/Date Given: Yes Hx Influenza Vaccination/Date Given: Yes Hx Pneumococcal Vaccination/Date Given: No Travel Risk - Emerging Infectious Disease Are you exhibiting symptoms associated with any current EIDs: No - Review of Systems Constitutional: No Symptoms, Weakness Eyes: No Symptoms Ears, Nose, & Throat: No Symptoms Respiratory: No Symptoms Cardiac: No Symptoms Abdominal/Gastrointestinal: No Symptoms Genitourinary Symptoms: No Symptoms Musculoskeletal: Back Pain Skin: No Symptoms Neurological: No Symptoms Psychological: No Symptoms All Other Systems: Reviewed and Negative - Past Medical History Pertinent Past Medical History: Yes Neurological History: Other ENT History: Other Cardiac History: Arrhythmia, High Cholesterol Respiratory History: Asthma Endocrine Medical History: Diabetes Type II, Hypothyroidism Musculoskeletal History: Fractures, Osteoarthritis GI Medical History: Diverticulosis, GERD, Gallbladder Disease History: No Pertinent History Psycho-Social History: Anxiety, Bipolar, Depression, Other Female Reproductive Disorders: Fibroids Other Medical History: FX "RIGHT KNEE" AT AGE 15 WITH SCREW PLACEMENT. DX'D WITH PARKINSON'S YEARS AGO AND PER PATIENT ALSO WITH DEGENERATIVE MUSCLE DISEASE BUT NOT SURE OF NAME. ALSO HX OF ANXIETY, DEPRESSION AND BIPOLAR DISORDER/SCHIZOPHRENIA. HX OF HYPERTENSION BUT RECENTLY STOPPED MEDS PATIENT WAS HAVING LOW BLOOD PRESSURE ISSUES. - Past Surgical History Past Surgical History: Yes Neuro Surgical History: No Pertinent History Cardiac: No Pertinent History Respiratory: No Pertinent History Gastrointestinal: Cholecystectomy Genitourinary: No Pertinent History Musculoskeletal: Other Female Surgical History: Hysterectomy, Section Other Surgical History: surgery right foot pins/toes,right knee "rebuilt"-screw in place, fareed hands neuro/nerve surgeries,right wrist x two cyst removed and nerve reconstruction,left wrist also,right eye-[place] removed ?, x two, back surgery - Social History Smoking Status: Former smoker How long have you smoked: 12 Exposure to second hand smoke: Yes Drug Use: none Patient Lives Alone: No - Social Determinants of Health Will the patient participate in the screening: Yes Do you worry about a steady place to live?: No In the past 12 months,have you had to go without utilities?: No Transportation Issues: No Has anyone in your support network made you feel unsafe?: No Have you or anyone in your house had to go without enough: No - Nursing Vital Signs Nursing Vital Signs: Initial Vital Signs Temperature 97.2 F 12/30/23 08:17 Pulse Rate 80 12/30/23 08:17 Respiratory Rate 18 12/30/23 08:17 Blood Pressure 115/67 12/30/23 08:17 O2 Sat by Pulse Oximetry 98 12/30/23 08:17 Pain Scale Pain Intensity 6 - Physical Exam General Appearance: mild distress Eye Exam: PERRL/EOMI, eyes nml inspection Neck Exam: normal inspection, other (Mid cervical tenderness paraspinal between C2-C4) Respiratory Exam: normal breath sounds Cardiovascular Exam: regular rate/rhythm, normal heart sounds, normal peripheral pulses, capillary refill <2 sec Gastrointestinal/Abdomen Exam: soft, normal bowel sounds Pelvic Exam: not done Rectal Exam: deferred Back Exam: normal inspection, normal range of motion, other (Thoracic spinal tenderness bilateral paraspinal between T4-L1 negative straight leg test to bilateral lower extremities) Neurologic Exam: alert, oriented x 3, cooperative, mat maker II-XII nml as tested Skin Exam: normal color, warm, dry SpO2 Interpretation: normal O2 Delivery: Room Air - Course Nursing assessment & vital signs reviewed: Yes - CT Exams Chest CT Interpretation: Negative, Tele-radiologist Report Ordered Tests: Active Orders 24 hr Category Date Time Status IV Insertion STAT Care 12/30/23 08:38 Active Re-Check Vital Signs STAT Care 12/30/23 08:38 Completed CERVICAL SPINE WO CONTRAST [CT] Stat Exams 12/30/23 08:39 Completed CHEST WITHOUT CONTRAST [CT] Stat Exams 12/30/23 08:47 Completed HEAD WITHOUT CONTRAST [CT] Stat Exams 12/30/23 08:48 Completed CBC W DIFF Stat Lab 12/30/23 10:28 Completed CMP Stat Lab 12/30/23 10:28 Completed UA W/RFX UR CULTURE Stat Lab 12/30/23 13:11 Completed Medication Summary Discontinued Medications Generic Name Dose Route Start Last Admin Trade Name Freq PRN Reason Stop Dose Admin Sodium Chloride 1,000 mls @ 999 mls/hr 12/30/23 08:38 12/30/23 10:05 Sodium Chloride 0.9% 1000 Ml IV 12/30/23 09:38 Infused .Q1H1M STA Infusion Sodium Chloride Confirm 12/30/23 09:01 Sodium Chloride 0.9% 1000 Ml Administered 12/30/23 09:02 Dose 1,000 mls @ ud .ROUTE .STK-MED ONE Ketorolac Tromethamine 15 mg 12/30/23 08:38 12/30/23 09:02 Ketorolac Tromethamine 30 Mg/Ml Inj IV 12/30/23 08:39 15 mg STAT ONE Administration Ketorolac Tromethamine Confirm 12/30/23 09:01 Ketorolac Tromethamine 30 Mg/Ml Inj Administered 12/30/23 09:02 Dose 30 mg .ROUTE .STK-MED ONE Orphenadrine Citrate 60 mg 12/30/23 08:38 12/30/23 09:02 Orphenadrine Citrate 60 Mg/2 Ml Vial IM 12/30/23 08:39 60 mg STAT ONE Administration Orphenadrine Citrate Confirm 12/30/23 09:01 Orphenadrine Citrate 60 Mg/2 Ml Vial Administered 12/30/23 09:02 Dose 60 mg .ROUTE .STK-[facility] ONE Lab/Rad Data: Laboratory Result Diagrams 12/30/23 10:28 12/30/23 10:28 Laboratory Results 12/30/23 12/30/23 12/30/23 Range/Units 13:11 10:28 10:28 WBC (3.98-10.04) x10^3/uL RBC (3.93-5.22) x10^6/uL Hgb (11.2-15.7) g/dL Hct (34.1-44.9) % MCV (79.4-94.8) fL MCH (25.6-32.2) pg MCHC (32.2-35.5) g/dL RDW (11.7-14.4) % Plt Count (182-369) x10^3/uL MPV (9.4-12.3) fL Gran % (34.0-71.1) % Immature Gran % (Auto) (0.001-0.429) % Nucleat RBC Rel Count (0.00-0.2) % Eos # (Auto) (0.04-0.36) x10^3/uL Immature Gran # (Auto) (0.001-0.031) x10^3u/L Absolute Lymphs (auto) (1.18-3.74) x10^3/uL Absolute Monos (auto) (0.24-0.86) x10^3/uL Absolute Nucleated RBC (0.00-0.012) x10^3u/L Lymphocytes % (19.3-51.7) % Monocytes % (4.7-12.5) % Eosinophils % (0.7-5.8) % Basophils % (0.1-1.2) % Absolute Granulocytes (1.56-6.13) x10^3/uL Basophils # (0.01-0.08) x10^3/uL Sodium 140 (135-145) mmol/L Potassium 4.3 (3.5-5.1) mmol/L Chloride 111 H (98-107) mmol/L Carbon Dioxide 23 (22-30) mmol/L Anion Gap 10.4 (5-15) MEQ/L BUN 17 (7-17) mg/dL Creatinine 0.83 (0.52-1.04) mg/dL Estimated GFR 81.2 ML/MIN Glucose 77 (74-106) mg/dL Calcium 9.5 (8.4-10.2) mg/dL Total Bilirubin 0.40 (0.2-1.3) mg/dL AST 17 (14-36) U/L ALT 17 (0-35) U/L Alkaline Phosphatase 88 (38-126) U/L Ammonia < 9 L (9-30) umol/L Serum Total Protein 5.7 L (6.3-8.2) g/dL Albumin 3.5 (3.5-5.0) g/dL Urine Color Yellow (Yellow) Urine Appearance Clear (Clear) Urine pH 6.0 (4.6-8.0) Ur Specific [place] 1.010 (1.005-1.030) Urine Protein Negative (Negative) Urine Glucose (UA) Negative (Negative) mg/dL Urine Ketones Negative (Negative) Urine Blood Negative (Negative) Urine Nitrite Negative (Negative) Urine Bilirubin Negative (Negative) Urine Urobilinogen 0.2 (0.2) mg/dL Ur Leukocyte Esterase Negative (Negative) U Hyaline Cast (Auto) NONE SEEN (0-2) /LPF Urine Microscopic RBC 0-2 (0-5) /HPF Urine Microscopic WBC 0-2 (0-5) /HPF Ur Epithelial Cells None Seen (None Seen) /HPF Urine Bacteria None Seen (None Seen) /HPF Urine Culture Reflexed NO (NO) 12/30/23 Range/Units 10:28 WBC 7.7 (3.98-10.04) x10^3/uL RBC 4.82 (3.93-5.22) x10^6/uL Hgb 13.0 (11.2-15.7) g/dL Hct 41.4 (34.1-44.9) % MCV 85.9 (79.4-94.8) fL MCH 27.0 (25.6-32.2) pg MCHC 31.4 L (32.2-35.5) g/dL RDW 15.7 H (11.7-14.4) % Plt Count 144 L (182-369) x10^3/uL MPV 11.2 (9.4-12.3) fL Gran % 66.3 (34.0-71.1) % Immature Gran % (Auto) 0.3 (0.001-0.429) % Nucleat RBC Rel Count 0.0 (0.00-0.2) % Eos # (Auto) 0.09 (0.04-0.36) x10^3/uL Immature Gran # (Auto) 0.02 (0.001-0.031) x10^3u/L Absolute Lymphs (auto) 1.97 (1.18-3.74) x10^3/uL Absolute Monos (auto) 0.51 (0.24-0.86) x10^3/uL Absolute Nucleated RBC 0.00 (0.00-0.012) x10^3u/L Lymphocytes % 25.6 (19.3-51.7) % Monocytes % 6.6 (4.7-12.5) % Eosinophils % 1.2 (0.7-5.8) % Basophils % 0.0 L (0.1-1.2) % Absolute Granulocytes 5.11 (1.56-6.13) x10^3/uL Basophils # 0 L (0.01-0.08) x10^3/uL Sodium (135-145) mmol/L Potassium (3.5-5.1) mmol/L Chloride (98-107) mmol/L Carbon Dioxide (22-30) mmol/L Anion Gap (5-15) MEQ/L BUN (7-17) mg/dL Creatinine (0.52-1.04) mg/dL Estimated GFR ML/MIN Glucose (74-106) mg/dL Calcium (8.4-10.2) mg/dL Total Bilirubin (0.2-1.3) mg/dL AST (14-36) U/L ALT (0-35) U/L Alkaline Phosphatase (38-126) U/L Ammonia (9-30) umol/L Serum Total Protein (6.3-8.2) g/dL Albumin (3.5-5.0) g/dL Urine Color (Yellow) Urine Appearance (Clear) Urine pH (4.6-8.0) Ur Specific [place] (1.005-1.030) Urine Protein (Negative) Urine Glucose (UA) (Negative) mg/dL Urine Ketones (Negative) Urine Blood (Negative) Urine Nitrite (Negative) Urine Bilirubin (Negative) Urine Urobilinogen (0.2) mg/dL Ur Leukocyte Esterase (Negative) U Hyaline Cast (Auto) (0-2) /LPF Urine Microscopic RBC (0-5) /HPF Urine Microscopic WBC (0-5) /HPF Ur Epithelial Cells (None Seen) /HPF Urine Bacteria (None Seen) /HPF Urine Culture Reflexed (NO) - Progress Progress: improved Progress Note: 12/30/23 11:09 Patient seen and evaluated on presentation. Nurses note reviewed. Past medical record review. Differential diagnosis for back pain includes but not limited to to fracture VS examination VS spinal stenosis VS cauda equina VS spinal abscess VS other musculoskeletal dysfunction. Positive etiology of the falls include generalized weakness due to infectious etiology such as UTI VS cellulitis VS pneumonia VS other organ system dysfunction. CBC, CMP, UA obtained to further evaluate possible etiology of patient's weakness and falls. CT of the head cervical spine and chest obtained to rule out pneumonia and fractures. Patient CTs were unremarkable. Patient given Toradol 15 mg IV for symptomatic relief of the pain as well as orphenadrine 60 mg IM for treatment of the back pain. Patient given 1 L of normal saline bolus. Discussed lab and imaging findings with patient. Patient states that she goes to pain management for both prescriptions for pain medication and muscle relaxants and she does not need any prescription today. Patient advised to follow-up with pain management. Discussed plan with patient. Patient agrees with plan. Patient discharged in stable condition. 12/30/23 14:03 Counseled pt/family regarding: lab results, diagnosis, need for follow-up Medical Desision Making - Independent Historian Additional History obtained from: EMS - Discussion of managment Reviewed:: Test results, Need for additional workup Agreed on:: Treatment plan - Diagnostic Testing Radiological Interpretation: Interpreted by me, Reviewed by me, Teleradiologist Report - Risk of complications Low Risk: Low risk of morbidity from additional dx testing or treatment The pt has a mod risk of morbidity or mortality based on: Need for prescription drug management - Departure Departure Disposition: Home Clinical Impression: Accidental fall, Back pain, Fall Condition: Stable Critical Care Time: No Referrals: OMAR BENSON MD [Primary Care Provider] - Follow up/PCP as directed Instructions: Preventing falls in adults Additional Instructions: Follow with PCP within 1 week. May return to the ED if symptoms worsen.
[2023-12-30 08:39] VITALS: TEMP 97.2
[2023-12-30] MEDS ORDERED: Sodium Chloride 0.9% 1000 ML 1,000 ML ONE (09:01)
[2023-12-30] MEDS ORDERED: Norflex 60 MG/2 ML ONE (09:01)
[2023-12-30] MEDS ORDERED: TORAdol 30 mg Injection ONE (09:01)
[2023-12-30] MEDS: TORAdol 30 mg Injection IV ONE (09:02)
[2023-12-30] MEDS: Sodium Chloride 0.9% 1000 ML 1,000 ML IV STA (09:02)
[2023-12-30] MEDS: Norflex 60 MG/2 ML IM ONE (09:02)
--- NOTE | 2023-12-30 10:43 | XRAY ---
Indication: Status post fall. Confusion. Multiple contiguous axial images obtained through the head without contrast. Comparison: November 11, 2023 Normal appearing brain parenchyma, ventricles, and bony calvarium for patient's age. Visualized paranasal sinuses and mastoid air cells are clear. Impression: Continued normal CT head without contrast exam.
--- NOTE | 2023-12-30 10:47 | XRAY ---
Indication: Status post fall . Cervical tenderness. Multiple contiguous axial images obtained through the cervical spine. Sagittal and coronal reformatted images obtained. Comparison: November 11, 2023 Osseous structures again demineralized. Axial images again negative for acute fracture, suspicious bony lesions, or spinal canal stenosis. Stable minimal/mild C3-C7 degenerative endplate spurring and mild multilevel bilateral degenerative facet hypertrophy. Sagittal and coronal reformatted images again demonstrates lordotic straightening and C5-C7 disc space narrowing. Again no acute fracture, subluxation, or jumped facet. Normal appearing craniocervical junction. Patient edentulous. Visualized noncontrasted soft tissues again demonstrates right thyroidectomy. Lung apices demonstrates stable incidental right apical calcified granuloma. Impression: 1. Continued negative for acute fracture/subluxation. 2. Again osteopenia, multilevel degenerative changes, right thyroidectomy, and right apical calcified granuloma.
[2023-12-30 10:49] LABS: ALBUMIN 3.5 g/dL (3.5-5.0); ANION GAP 10.4 MEQ/L (5-15); BILIRUBIN,TOTAL 0.4 mg/dL (0.2-1.3); Calcium 9.5 mg/dL (8.4-10.2); Creatinine 1 0.83 mg/dL (0.52-1.04); EST GLOMERULAR FILTRATION RATE 81.2 ML/MIN; Potassium 4.3 mmol/L (3.5-5.1); Total Protein 5.7 g/dL (6.3-8.2)
--- NOTE | 2023-12-30 10:51 | XRAY ---
Indication: Pain following fall. Multiple contiguous axial images obtained through the chest without contrast. Comparison: October 24, 2016 Lungs demonstrates minimal bilateral dependent atelectasis and stable right apical calcified granuloma. No suspicious pulmonary mass/nodule, infiltrate, effusion, or pneumothorax. Heart not enlarged again with scattered coronary calcifications. Aorta again minimally arteriosclerotic without aneurysm. Stable small mediastinal calcified nodes. Bony thorax intact again with osteopenia and mild multilevel degenerative spondylosis. Limited upper abdomen again demonstrates fatty liver. New cholecystectomy clips. Impression: Chronic findings including fatty liver, arteriosclerotic disease, chronic bony findings, and old granulomatous disease. No new/acute findings on this noncontrast exam.
[2023-12-30 11:21] LABS: Absolute Neutrophil Ct (ANC) 5.11 x10^3/uL (1.56-6.13); Basophil (Absolute #) 0 x10^3/uL (0.01-0.08); Eosinophil % 1.2 % (0.7-5.8); Eosinophil (Absolute #) 0.09 x10^3/uL (0.04-0.36); Hematocrit 41.4 % (34.1-44.9); IMMATURE GRAN # 0.02 x10^3u/L (0.001-0.031); IMMATURE GRAN % 0.3 % (0.001-0.429); Lymphocyte (Absolute #) 1.97 x10^3/uL (1.18-3.74); Lymphocytes % 25.6 % (19.3-51.7); Mean Cell Volume 85.9 fL (79.4-94.8); Mean Corpuscular Hgb Concent. 31.4 g/dL (32.2-35.5); Mean Platelet Volume 11.2 fL (9.4-12.3); Monocyte (Absolute #) 0.51 x10^3/uL (0.24-0.86); Monocytes % 6.6 % (4.7-12.5); Neutrophil % 66.3 % (34.0-71.1); Platelet Count 144 x10^3/uL (182-369); Red Blood Count 4.82 x10^6/uL (3.93-5.22); Red Cell Distribution Width 15.7 % (11.7-14.4); White Blood Count 7.7 x10^3/uL (3.98-10.04)
[2023-12-30 12:38] VITALS: BP 90/71; O2SAT 98
[2023-12-30 13:26] LABS: Appearance Clear (Clear); Bacteria None Seen /HPF (None Seen); Bilirubin Negative (Negative); Blood Negative (Negative); Epithelial Cells None Seen /HPF (None Seen); Glucose, Urine Negative (Negative); Hyaline Casts NONE SEEN /LPF (0-2); Ketones Negative (Negative); Leukocyte Esterase Negative (Negative); Nitrite Negative (Negative); Protein,Urine Dip Negative (Negative); RBC 0-2 /HPF (0-5); Urobilinogen 0.2 mg/dL (0.2); WBC 0-2 /HPF (0-5)
[2023-12-30 14:09] VITALS: PULSE 74; RESP 27
== END 2023-12-30 14:13 | disposition home or self-care (01) ==
LOC: ED 08:16
DX: R29.6 Repeated falls (principal); M54.6 Pain in thoracic spine; R53.1 Weakness; E78.5 Hyperlipidemia, unspecified; I10 Essential (primary) hypertension; Z79.85 Long-term (current) use of injectable non-insulin antidiabetic drugs; Z79.4 Long term (current) use of insulin; Z79.891 Long term (current) use of opiate analgesic; Z79.899 Other long term (current) drug therapy
CPT/HCPCS: 36415; 70450; 71250; 72125; 80053; 81001; 82140; 85025; 96360; 96374; 99284; J1885; J2360

== ENCOUNTER 2024-04-05 23:36 | Emergency (ER) | payer MEDICARE ==
[2024-04-05 23:53] VITALS: RESP 18
--- NOTE | 2024-04-05 23:56 | ERPHSYRPT ---
- History of Present Illness Time Seen by Provider: 04/05/24 23:56 Source: patient Exam Limitations: no limitations Patient Subjective Stated Complaint: c/o fall Triage Nursing Assessment: patient brought into ED by ambulance with c/o fall at home. patient states she got up from a chair and fell forward and hit her head on the door frame. patient rates pain 8/10. head laceration that is 5cm, patient denies LOC, states she was dizzy after the fall, AxOx3, pupils are 2mm, patient's vitals wnl, brought in by stretcher, skin w/n/d, patient doesn't appear to be in any distress at this time, C-collar in place. Physician History: The patient presents with a fall resulting in knee injury and head laceration. They slipped and fell while attempting to stand up from a chair, landing on their knee, which has resulted in pain and difficulty lifting the leg. No hip or groin pain is reported. During the fall, they also sustained a laceration on their head. They prefer to avoid stitches if possible. No neck pain is reported. Occurred: just prior to arrival Severity: moderate Head Injury Location: frontal Method of Injury: fell Loss of Consciousness: no loss of consciousness Associated Symptoms: headaches, No nausea, No vomiting, No shortness of breath, No seizure, No weakness Allergies/Adverse Reactions: famotidine [From Pepcid] Allergy (Severe, Verified 04/05/24 23:54) Vomiting potassium chloride Allergy (Severe, Verified 04/05/24 23:54) Swelling of Tongue and Lips liquid potassium caused tongue swelling. pt takes tablets without issue propranolol [From Inderal LA] Allergy (Severe, Verified 04/05/24 23:54) Anaphylactic Reaction sumatriptan [From Imitrex] Allergy (Severe, Verified 04/05/24 23:54) Anaphylactic Reaction sumatriptan succinate [From Imitrex] Allergy (Severe, Verified 04/05/24 23:54) Anaphylactic Reaction zolpidem [From Ambien] Allergy (Verified 04/05/24 23:54) insulin aspart [From Novolog Mix 70-30 U-100 Insuln] Adverse Reaction (Verified 04/05/24 23:54) Anaphylactic Reaction insulin aspart protamine human [From Novolog Mix 70-30 U-100 Insuln] Adverse Reaction (Verified 04/05/24 23:54) Anaphylactic Reaction Home Medications: Ascorbic Acid 500 mg [Vitamin C 500 MG] 500 mg PO DAILY 11/04/18 [History] Furosemide 20 mg [Lasix 20 mg] 40 mg PO DAILY 11/04/18 [History] Levothyroxine Sodium 75 Mcg [Synthroid 75 Mcg] 75 mcg PO DAILY 11/04/18 [History] Lipase/Protease/Amylase [Armando Zuleta 24,000 Units Capsule] 2 each PO QID 11/04/18 [History] Montelukast Sodium 10 mg [Singulair 10 MG] 10 mg PO DAILY 11/04/18 [History] Potassium Chloride Tab* [Klor Con 10 MEQ] 10 meq PO BID 11/04/18 [History] Topiramate 50 mg PO HS 11/04/18 [History] Gabapentin [Neurontin 300 mg] 600 mg PO TID 08/01/20 [History] Levocetirizine Dihydrochloride 5 mg PO DAILY 08/01/20 [History] Losartan Potassium [Cozaar] 50 mg PO HS 08/01/20 [History] haloperidoL [Haloperidol] 10 mg PO TID 08/01/20 [History] Carvedilol [Coreg ] 6.25 mg PO BID 12/10/23 [History] Dulaglutide [Trulicity] 1.5 mg SQ WEEKLY 12/10/23 [History] Ergocalciferol (Vitamin D2) [Vitamin D2] 50,000 unit PO Q7D 12/10/23 [History] Esomeprazole Magnesium 40 mg PO DAILY 12/10/23 [History] Haloperidol [Haldol] 5 mg PO UD 12/10/23 [History] Hydroxyzine HCl 25 mg [Atarax 25 mg] 25 mg PO TID PRN 12/10/23 [History] Insulin Degludec [Tresiba] 70 units SQ QAM 12/10/23 [History] Lactulose 15 ml PO BID 12/10/23 [History] Meclizine HCl 25 mg [Antivert 25 mg] 12.5 mg PO TID PRN 12/10/23 [History] Metoprolol Succinate 25 mg PO DAILY 12/10/23 [History] Oxycodone HCl/Acetaminophen [Oxycodone-Acetaminophn 7.5-325] 1 each PO QID 12/10/23 [History] Paliperidone [Paliperidone ER] 6 mg PO DAILY 12/10/23 [History] Ropinirole HCl 0.25 mg PO HS 12/10/23 [History] Ropinirole HCl 5 mg PO UD 12/10/23 [History] Rosuvastatin Calcium 40 mg PO HS 12/10/23 [History] Trazodone HCl 50 mg [Desyrel 50 mg] 300 mg PO HS 12/10/23 [History] Trihexyphenidyl HCl 5 mg PO BID 12/10/23 [History] Hx Tetanus, Diphtheria Vaccination/Date Given: Yes Hx Influenza Vaccination/Date Given: Yes Hx Pneumococcal Vaccination/Date Given: No Travel Risk - International Travel Have you traveled outside of the country in past 3 weeks: No - Emerging Infectious Disease Are you exhibiting symptoms associated with any current EIDs: No - Review of Systems All Other Systems: Reviewed and Negative - Past Medical History Pertinent Past Medical History: Yes Neurological History: Other ENT History: Other Cardiac History: Arrhythmia, High Cholesterol Respiratory History: Asthma Endocrine Medical History: Diabetes Type II, Hypothyroidism Musculoskeletal History: Fractures, Osteoarthritis GI Medical History: Diverticulosis, GERD, Gallbladder Disease History: No Pertinent History Psycho-Social History: Anxiety, Bipolar, Depression, Other Female Reproductive Disorders: Fibroids Other Medical History: FX "RIGHT KNEE" AT AGE 15 WITH SCREW PLACEMENT. DX'D WITH PARKINSON'S YEARS AGO AND PER PATIENT ALSO WITH DEGENERATIVE MUSCLE DISEASE BUT NOT SURE OF NAME. ALSO HX OF ANXIETY, DEPRESSION AND BIPOLAR DISORDER/SCHIZOPHRENIA. HX OF HYPERTENSION BUT RECENTLY STOPPED MEDS PATIENT WAS HAVING LOW BLOOD PRESSURE ISSUES. - Past Surgical History Past Surgical History: Yes Neuro Surgical History: No Pertinent History Cardiac: No Pertinent History Respiratory: No Pertinent History Gastrointestinal: Cholecystectomy Genitourinary: No Pertinent History Musculoskeletal: Other Female Surgical History: Hysterectomy, Section Other Surgical History: surgery right foot pins/toes,right knee "rebuilt"-screw in place, fareed hands neuro/nerve surgeries,right wrist x two cyst removed and nerve reconstruction,left wrist also,right eye-[place] removed ?, x two, back surgery - Social History Smoking Status: Former smoker How long have you smoked: 12 Exposure to second hand smoke: Yes Drug Use: none Patient Lives Alone: No - Social Determinants of Health Will the patient participate in the screening: Yes Do you worry about a steady place to live?: No Do you have any problems with any of the following?: No known problems In the past 12 months,have you had to go without utilities?: No Transportation Issues: No Has anyone in your support network made you feel unsafe?: No Have you or anyone in your house had to go without enough: No - Nursing Vital Signs Nursing Vital Signs: Initial Vital Signs Pulse Rate 79 04/05/24 23:39 Respiratory Rate 18 04/05/24 23:39 Pain Scale Pain Intensity 8 - Leander Coma Score Best Eye Response (Leander): (4) open spontaneously Best Verbal Response (Catarino): (5) oriented Best Motor Response (Catarino): (6) obeys commands Catarino Total: 15 - Physical Exam General Appearance: no apparent distress Head Injury: lacerations (5cm center of forehead), tenderness Eye Exam: bilateral eye: normal inspection, PERRL, EOMI, abnormal pupil (2mm) ENT Exam: airway nml Neck Exam: c-collar in place Cardiovascular/Respiratory Exam: no respiratory distress Extremity Exam: swelling (right knee, TTP, ROM limited by pain) Mental Status Exam: alert, oriented x 3, cooperative cone baker machine Exam: normal hearing, normal speech, PERRL, tongue midline Coordination/Gait Exam: normal finger to nose, normal cerebellar function Motor/Sensory Exam: no motor deficit, no sensory deficit, no pronator drift, CN II-XII intact SpO2 Interpretation: normal O2 Delivery: Room Air Procedures - Laceration/Wound Repair Head Time of Procedure: 01:50 Wound Location: forehead (center) Wound Length (cm): 5 Wound's Depth, Shape: superficial Wound Explored: clean Irrigated: Yes Hibiclens Prep: Yes Anesthesia: topical Wound Repaired With: Dermabond Sterile Dressing Applied?: No - Course Nursing assessment & vital signs reviewed: Yes - Radiology Exams Right Knee X-ray Interpretation: Interpreted by me, Other (proximal avulsion of MCL) - CT Exams Head CT Interpretation: Tele-radiologist Report, No/Intracranial Hemorrhag Cervical Spine CT Interpretation: Tele-radiologist Report, No Fracture Ordered Tests: Active Orders 24 hr Category Date Time Status CERVICAL SPINE WO CONTRAST [CT] Routine Exams 04/06/24 00:59 Taken KNEE (3 VIEWS) Routine Exams 04/06/24 00:59 Taken Medication Summary Discontinued Medications Generic Name Dose Route Start Last Admin Trade Name Justin PRN Reason Stop Dose Admin Acetaminophen 975 mg 04/05/24 23:57 04/06/24 00:01 Acetaminophen 325 Mg Tablet PO 04/05/24 23:58 975 mg STAT STA Administration Acetaminophen Confirm 04/06/24 00:00 Acetaminophen 325 Mg Tablet Administered 04/06/24 00:01 Dose 975 mg .ROUTE .STK-MED ONE Hydrocodone Bitart/Acetaminophen 1 tablet 04/06/24 01:55 04/06/24 02:27 Hydrocodone/Acetamin 10-325 Mg Tablet PO 04/06/24 01:56 1 tablet STAT ONE Administration Hydrocodone Bitart/Acetaminophen Confirm 04/06/24 02:26 Hydrocodone/Acetamin 10-325 Mg Tablet Administered 04/06/24 02:27 Dose 1 tablet .ROUTE .STK-MED ONE Lidocaine/Prilocaine 2.5 gm 04/06/24 01:13 04/06/24 01:24 Lidocaine/Prilocaine 5 Gm 5 Gm Tube TP 04/06/24 01:14 2.5 gm STAT ONE Administration Lidocaine/Prilocaine Confirm 04/06/24 01:23 Lidocaine/Prilocaine 5 Gm 5 Gm Tube Administered 04/06/24 01:24 Dose 5 gm TP .STK-MED ONE Lab/Rad Data: Laboratory Result Diagrams 04/05/24 00:30 04/05/24 00:30 Laboratory Results 04/05/24 04/05/24 Range/Units 00:30 00:30 WBC 6.1 (3.98-10.04) x10^3/uL RBC 4.80 (3.93-5.22) x10^6/uL Hgb 12.8 (11.2-15.7) g/dL Hct 41.9 (34.1-44.9) % MCV 87.3 (79.4-94.8) fL MCH 26.7 (25.6-32.2) pg MCHC 30.5 L (32.2-35.5) g/dL RDW 15.2 H (11.7-14.4) % Plt Count 79 L (182-369) x10^3/uL MPV 13.0 H (9.4-12.3) fL Gran % 53.8 (34.0-71.1) % Immature Gran % (Auto) 0.7 H (0.001-0.429) % Nucleat RBC Rel Count 0.0 (0.00-0.2) % Eos # (Auto) 0.17 (0.04-0.36) x10^3/uL Immature Gran # (Auto) 0.04 H (0.001-0.031) x10^3u/L Absolute Lymphs (auto) 2.09 (1.18-3.74) x10^3/uL Absolute Monos (auto) 0.51 (0.24-0.86) x10^3/uL Absolute Nucleated RBC 0.00 (0.00-0.012) x10^3u/L Lymphocytes % 34.2 (19.3-51.7) % Monocytes % 8.3 (4.7-12.5) % Eosinophils % 2.8 (0.7-5.8) % Basophils % 0.2 (0.1-1.2) % Absolute Granulocytes 3.29 (1.56-6.13) x10^3/uL Basophils # 0.01 (0.01-0.08) x10^3/uL Sodium 138 (135-145) mmol/L Potassium 3.7 (3.5-5.1) mmol/L Chloride 107 (98-107) mmol/L Carbon Dioxide 22 (22-30) mmol/L Anion Gap 12.7 (5-15) MEQ/L BUN 8 (7-17) mg/dL Creatinine 0.86 (0.52-1.04) mg/dL Estimated GFR 77.8 ML/MIN Glucose 150 H (74-106) mg/dL Calcium 9.0 (8.4-10.2) mg/dL Total Bilirubin 0.30 (0.2-1.3) mg/dL AST 23 (14-36) U/L ALT 16 (0-35) U/L Alkaline Phosphatase 71 (38-126) U/L Serum Total Protein 5.5 L (6.3-8.2) g/dL Albumin 3.3 L (3.5-5.0) g/dL - Progress Progress Note: Fall with potential head and neck injury Slipped and fell, hitting the knee and sustaining a head laceration. No reported neck pain, but CT scan of the head and neck is warranted to rule out internal injuries or fractures. - Order CT scan of the head and neck Head laceration Laceration on the head from the fall. The wound is suitable for closure without stitches, as it holds together well unless pulled. Preference to avoid stitches. - Clean the wound and apply local anesthetic - Use medical adhesive to close the laceration Knee pain Fall resulted in direct impact on the knee. Limited range of motion due to pain, but no swelling or bruising. Severity appears mild as they can lift the leg with some limitation. - XR of right knee - Administer acetaminophen for pain management - Avoid NSAIDs due to increased bleeding risk Patient given option of suture vs glue to repair laceration, patient elected to proceed with glue. Dermabond placed over the laceration. CT head and C spine neg for acute pathology. Will remove C-collar. DC home with return precautions. Recommend follow up with orthopedics for right knee. Counseled pt/family regarding: lab results, diagnosis, need for follow-up, rad results Medical Desision Making - Diagnostic Testing Diagnostic test were ordered, analyzed, and reviewed by me: Yes Radiological Interpretation: Interpreted by me, Reviewed by me, Teleradiologist Report - Risk of complications The pt has a mod risk of morbidity or mortality based on: Need for prescription drug management - Departure Departure Disposition: Home Clinical Impression: Laceration, Head trauma, Post-traumatic headache, Injury of medial collateral ligament of right knee Condition: Good Critical Care Time: No Referrals: OMAR BENSON MD [Primary Care Provider] - Follow up/PCP as directed Instructions: Laceration Repair With Glue ED, Head injury in adults, Ligament Injuries in the Knee (DC) Prescriptions: Hydrocodone/Acetaminophen [Hydrocodone-Acetamin 7.5-325] 1 each PO Q6H PRN 3 Days #12 tablet MDD 4 tab PRN Reason: Moderate To Severe Pain
[2024-04-06] MEDS ORDERED: TYLENOL 325 MG ONE
[2024-04-06] MEDS: TYLENOL 325 MG PO STA (00:01)
[2024-04-06 01:12] LABS: Absolute Neutrophil Ct (ANC) 3.29 x10^3/uL (1.56-6.13); BASOPHIL % 0.2 % (0.1-1.2); Basophil (Absolute #) 0.01 x10^3/uL (0.01-0.08); Eosinophil % 2.8 % (0.7-5.8); Eosinophil (Absolute #) 0.17 x10^3/uL (0.04-0.36); Hematocrit 41.9 % (34.1-44.9); Hemoglobin 12.8 g/dL (11.2-15.7); IMMATURE GRAN # 0.04 x10^3u/L (0.001-0.031); IMMATURE GRAN % 0.7 % (0.001-0.429); Lymphocyte (Absolute #) 2.09 x10^3/uL (1.18-3.74); Lymphocytes % 34.2 % (19.3-51.7); Mean Cell Volume 87.3 fL (79.4-94.8); Mean Corpuscular Hemoglobin 26.7 pg (25.6-32.2); Mean Corpuscular Hgb Concent. 30.5 g/dL (32.2-35.5); Monocyte (Absolute #) 0.51 x10^3/uL (0.24-0.86); Monocytes % 8.3 % (4.7-12.5); Neutrophil % 53.8 % (34.0-71.1); Platelet Count 79 x10^3/uL (182-369); Red Cell Distribution Width 15.2 % (11.7-14.4); White Blood Count 6.1 x10^3/uL (3.98-10.04)
[2024-04-06 01:22] LABS: ALBUMIN 3.3 g/dL (3.5-5.0); ANION GAP 12.7 MEQ/L (5-15); BILIRUBIN,TOTAL 0.3 mg/dL (0.2-1.3); Creatinine 1 0.86 mg/dL (0.52-1.04); EST GLOMERULAR FILTRATION RATE 77.8 ML/MIN; Potassium 3.7 mmol/L (3.5-5.1); Total Protein 5.5 g/dL (6.3-8.2)
[2024-04-06] MEDS ORDERED: EMLA Cream 5 GM TP ONE (01:23)
[2024-04-06] MEDS: EMLA Cream 5 GM TP ONE (01:24)
[2024-04-06] MEDS ORDERED: NORCO 10-325 MG ONE (02:26)
[2024-04-06] MEDS: NORCO 10-325 MG PO ONE (02:27)
--- NOTE | 2024-04-06 02:40 | XRAY ---
CLINICAL HISTORY: headache, falle COMPARISON: 12/30/2023 08:34:21 CELL PREPARER TECHNIQUE: Multiple axial images are obtained from the skull base to the vertex without contrast. CT scan was performed according to ALARA (as low as reasonable achievable). FINDINGS: There is cerebral atrophy. No evidence of space occupying lesion, hemorrhage, edema, mass effect, midline shift, extra axial collection, or hydrocephalus is noted. Basal cisterns are symmetric and normal in size and configuration. There are scattered periventricular hypodensities as can be seen with chronic microvascular ischemic changes. The parada-white matter differentiation is preserved. Visualized paranasal sinuses and mastoid air cells are well aerated. Orbital contents are within normal limits. Bony structures are intact. IMPRESSION: 1. No evidence of acute intracranial abnormality is demonstrated. 2. Chronic microvascular ischemic changes. 3. Cerebral atrophy. No other new interval abnormality since prior study. Electronically Signed by: Reymundo Potts MD. (04/06/2024 02:35:34 EST)
--- NOTE | 2024-04-06 02:44 | XRAY ---
CLINICAL HISTORY: FALLS, NECK PAIN COMPARISON: 12/30/2023 08:36:52 PROJECT MANAGEMENT ENGINEER TECHNIQUE: Computed tomography of the cervical spine performed without intravenous contrast. Contiguous axial images were obtained from the skull base to T2, with sagittal and coronal reformatted images reconstructed from the axial data. CT scan was performed according to ALARA (as low as reasonable achievable). FINDINGS: Loss of cervical lordosis - suggest possibility of muscle spasm/positional. Degenerative changes involving cervical spine in the form of multilevel marginal osteophytes, disc space reduction and facetal arthrosis. Posterior uncovertebral arthrosis is noted at C5-C6 and C6-C7 level, which indenting ventral thecal sac and causes bilateral neuroforaminal narrowing. Cervical vertebral bodies are normal in height and alignment, with no evidence of fracture or subluxation. Lateral masses of C1 are symmetrical, and the dens is intact. Prevertebral soft tissues are not widened. The remaining suprahyoid and infrahyoid soft tissues in the neck are unremarkable. Thyroid gland appears unremarkable. IMPRESSION: 1.No acute fracture or subluxation in the cervical spine. Cervical spondylosis. No other new interval abnormality since prior study. Electronically Signed by: Reymundo Potts MD. (04/06/2024 02:39:35 EST)
[2024-04-06 02:54] VITALS: BP 113/84; PULSE 78; O2SAT 97
--- NOTE | 2024-04-06 08:55 | XRAY ---
Indication: Status post fall. Comparison: None 3 portable views right knee demonstrates osteopenia, mild/moderate tricompartmental degenerative changes, medial supracondylar curvilinear heterotopic ossification, and intact proximal tibial orthopedic screw. No acute bony, articular, or soft tissue abnormalities.
== END 2024-04-06 03:08 | disposition home or self-care (01) ==
LOC: ED 23:36
DX: S09.90XA Unspecified injury of head, initial encounter (principal); S01.81XA Laceration without foreign body of other part of head, initial encounter; S83.411A Sprain of medial collateral ligament of right knee, initial encounter; W01.0XXA Fall on same level from slipping, tripping and stumbling without subsequent striking against object, initial encounter; G44.319 Acute post-traumatic headache, not intractable; E78.5 Hyperlipidemia, unspecified; E11.9 Type 2 diabetes mellitus without complications; Z79.891 Long term (current) use of opiate analgesic; Z79.85 Long-term (current) use of injectable non-insulin antidiabetic drugs; Z79.899 Other long term (current) drug therapy
CPT/HCPCS: 12002; 36415; 70450; 72125; 73562; 80053; 85025; 99284; A9270-GY

== ENCOUNTER 2024-04-06 18:30 | Emergency (ER) | payer MEDICARE ==
--- NOTE | 2024-04-06 18:38 | ERPHSYRPT ---
- History of Present Illness Time Seen by Provider: 04/06/24 18:38 Source: patient, family Exam Limitations: no limitations Physician History: This is a 58-year-old white female who was seen in our emergency department yesterday, 04/05/2024, after fall causing vertically oriented 3 cm middle forehead skin laceration that was repaired with glue. CT scan of the head showed no acute intracranial abnormality and no skull fracture. Patient's preference on was to avoid suture placement. Patient is here today for wound check there is some serous drainage from the site. Timing/Duration: today Quality: painful (To palpation) Severity: mild Location: face (Mid forehead) Associated Symptoms: denies symptoms Allergies/Adverse Reactions: famotidine [From Pepcid] Allergy (Severe, Verified 04/05/24 23:54) Vomiting potassium chloride Allergy (Severe, Verified 04/05/24 23:54) Swelling of Tongue and Lips liquid potassium caused tongue swelling. pt takes tablets without issue propranolol [From Inderal LA] Allergy (Severe, Verified 04/05/24 23:54) Anaphylactic Reaction sumatriptan [From Imitrex] Allergy (Severe, Verified 04/05/24 23:54) Anaphylactic Reaction sumatriptan succinate [From Imitrex] Allergy (Severe, Verified 04/05/24 23:54) Anaphylactic Reaction zolpidem [From Ambien] Allergy (Verified 04/05/24 23:54) insulin aspart [From Novolog Mix 70-30 U-100 Insuln] Adverse Reaction (Verified 04/05/24 23:54) Anaphylactic Reaction insulin aspart protamine human [From Novolog Mix 70-30 U-100 Insuln] Adverse Reaction (Verified 04/05/24 23:54) Anaphylactic Reaction Home Medications: Ascorbic Acid 500 mg [Vitamin C 500 MG] 500 mg PO DAILY 11/04/18 [History] Furosemide 20 mg [Lasix 20 mg] 40 mg PO DAILY 11/04/18 [History] Levothyroxine Sodium 75 Mcg [Synthroid 75 Mcg] 75 mcg PO DAILY 11/04/18 [History] Lipase/Protease/Amylase [Armando Zuleta 24,000 Units Capsule] 2 each PO QID 11/04/18 [History] Montelukast Sodium 10 mg [Singulair 10 MG] 10 mg PO DAILY 11/04/18 [History] Potassium Chloride Tab* [Klor Con 10 MEQ] 10 meq PO BID 11/04/18 [History] Topiramate 50 mg PO HS 11/04/18 [History] Gabapentin [Neurontin 300 mg] 600 mg PO TID 08/01/20 [History] Levocetirizine Dihydrochloride 5 mg PO DAILY 08/01/20 [History] Losartan Potassium [Cozaar] 50 mg PO HS 08/01/20 [History] haloperidoL [Haloperidol] 10 mg PO TID 08/01/20 [History] Carvedilol [Coreg ] 6.25 mg PO BID 12/10/23 [History] Dulaglutide [Trulicity] 1.5 mg SQ WEEKLY 12/10/23 [History] Ergocalciferol (Vitamin D2) [Vitamin D2] 50,000 unit PO Q7D 12/10/23 [History] Esomeprazole Magnesium 40 mg PO DAILY 12/10/23 [History] Haloperidol [Haldol] 5 mg PO UD 12/10/23 [History] Hydroxyzine HCl 25 mg [Atarax 25 mg] 25 mg PO TID PRN 12/10/23 [History] Insulin Degludec [Tresiba] 70 units SQ QAM 12/10/23 [History] Lactulose 15 ml PO BID 12/10/23 [History] Meclizine HCl 25 mg [Antivert 25 mg] 12.5 mg PO TID PRN 12/10/23 [History] Metoprolol Succinate 25 mg PO DAILY 12/10/23 [History] Oxycodone HCl/Acetaminophen [Oxycodone-Acetaminophn 7.5-325] 1 each PO QID [History] Paliperidone [Paliperidone ER] 6 mg PO DAILY 12/10/23 [History] Ropinirole HCl 0.25 mg PO HS 12/10/23 [History] Ropinirole HCl 5 mg PO UD 12/10/23 [History] Rosuvastatin Calcium 40 mg PO HS 12/10/23 [History] Trazodone HCl 50 mg [Desyrel 50 mg] 300 mg PO HS 12/10/23 [History] Trihexyphenidyl HCl 5 mg PO BID 12/10/23 [History] Hx Tetanus, Diphtheria Vaccination/Date Given: Yes Hx Influenza Vaccination/Date Given: Yes Hx Pneumococcal Vaccination/Date Given: No Travel Risk - Emerging Infectious Disease Are you exhibiting symptoms associated with any current EIDs: No - Review of Systems Constitutional: No Symptoms Eyes: No Symptoms Ears, Nose, & Throat: No Symptoms Respiratory: No Symptoms Cardiac: No Symptoms Abdominal/Gastrointestinal: No Symptoms Genitourinary Symptoms: No Symptoms Musculoskeletal: No Symptoms Skin: Other (Serous drainage (mild amount) from laceration repair site with glue) Neurological: No Symptoms Psychological: No Symptoms Endocrine: No Symptoms Hematologic/Lymphatic: No Symptoms Immunological/Allergic: No Symptoms All Other Systems: Reviewed and Negative - Past Medical History Pertinent Past Medical History: Yes Neurological History: Other ENT History: Other Cardiac History: Arrhythmia, High Cholesterol Respiratory History: Asthma Endocrine Medical History: Diabetes Type II, Hypothyroidism Musculoskeletal History: Fractures, Osteoarthritis GI Medical History: Diverticulosis, GERD, Gallbladder Disease History: No Pertinent History Psycho-Social History: Anxiety, Bipolar, Depression, Other Female Reproductive Disorders: Fibroids Other Medical History: FX "RIGHT KNEE" AT AGE 15 WITH SCREW PLACEMENT. DX'D WITH PARKINSON'S YEARS AGO AND PER PATIENT ALSO WITH DEGENERATIVE MUSCLE DISEASE BUT NOT SURE OF NAME. ALSO HX OF ANXIETY, DEPRESSION AND BIPOLAR DISORDER/SCHIZOPHRENIA. HX OF HYPERTENSION BUT RECENTLY STOPPED MEDS PATIENT WAS HAVING LOW BLOOD PRESSURE ISSUES. - Past Surgical History Past Surgical History: Yes Neuro Surgical History: No Pertinent History Cardiac: No Pertinent History Respiratory: No Pertinent History Gastrointestinal: Cholecystectomy Genitourinary: No Pertinent History Musculoskeletal: Other Female Surgical History: Hysterectomy, Section Other Surgical History: surgery right foot pins/toes,right knee "rebuilt"-screw in place, fareed hands neuro/nerve surgeries,right wrist x two cyst removed and nerve reconstruction,left wrist also,right eye-[place] removed ?, x two, back surgery - Social History Smoking Status: Former smoker How long have you smoked: 12 Exposure to second hand smoke: Yes Drug Use: none Patient Lives Alone: No - Social Determinants of Health Will the patient participate in the screening: Yes Do you worry about a steady place to live?: No In the past 12 months,have you had to go without utilities?: No Transportation Issues: No Has anyone in your support network made you feel unsafe?: No Have you or anyone in your house had to go without enough: No - Nursing Vital Signs Nursing Vital Signs: Initial Vital Signs Temperature 96.7 F 04/06/24 18:37 Pulse Rate 98 H 04/06/24 18:37 Respiratory Rate 18 04/06/24 18:37 Blood Pressure 117/82 04/06/24 18:37 O2 Sat by Pulse Oximetry 99 04/06/24 18:37 Pain Scale Pain Intensity 8 - Physical Exam General Appearance: no apparent distress, alert, anxiety Eye Exam: PERRL/EOMI, eyes nml inspection Ears, Nose, Throat Exam: normal ENT inspection, moist mucous membranes Neck Exam: normal inspection, non-tender, supple, full range of motion Respiratory Exam: airway intact, No chest tenderness, No respiratory distress Gastrointestinal/Abdomen Exam: No tenderness Pelvic Exam: not done Rectal Exam: not done Extremity Exam: normal inspection, normal range of motion, pelvis stable Neurologic Exam: alert, oriented x 3, cooperative, cat dog or other pet groomer II-XII nml as tested, normal mood/affect, sensation nml Skin Exam: laceration (Vertically oriented 3 cm mid forehead skin laceration repair site with glue is intact. There is very mild amount of serous drainage from this area. No subcutaneous hematoma or fluid collection apparent) Lymphatic Exam: No adenopathy SpO2 Interpretation: normal O2 Delivery: Room Air - Course Nursing assessment & vital signs reviewed: Yes - Progress Progress: improved Progress Note: 04/06/24 19:02 Procedure note: Timeout performed at 6:50 PM. I evaluated the wound. There is no expressible fluid. The laceration repair site is intact with glue. I offered the patient to place stitches/sutures and she prefers not to have that performed. We applied benzoin to the wound site and outlined skin area on either side of the laceration repair site and then placed 1/2 inch Steri-Strips to help secure to even a greater extent, the laceration repair site. We showed the patient and she is happy with this and does not want sutures placed. Patient tolerated the procedure well. Counseled pt/family regarding: diagnosis, need for follow-up Medical Desision Making - Independent Historian Additional History obtained from: Family - Diagnostic Testing Diagnostic test were ordered, analyzed, and reviewed by me: No - Risk of complications Low Risk: Low risk of morbidity from additional dx testing or treatment - Departure Departure Disposition: Home Clinical Impression: Visit for wound check Condition: Stable Critical Care Time: No Referrals: OMAR BENSON MD [Primary Care Provider] - Follow up/PCP as directed Additional Instructions: Do not get this laceration repair site/Steri-Strip site wet until the morning of 04/08/2024. In the interim, you may apply ice pack (not directly on the skin) to this site 3-4 times a day. On the morning of 04/08/2024 you may shower and allow the water to flow over this site. Blot dry use a foreign languages department chair. Do not rub. Do not pull off the Steri-Strips. Allow them to fall off on their own in approximately 7 days.
[2024-04-06 18:45] VITALS: PULSE 98; TEMP 96.7
[2024-04-06 19:25] VITALS: BP 102/76; RESP 20; O2SAT 96
== END 2024-04-06 19:23 | disposition home or self-care (01) ==
LOC: ED 18:30
DX: Z48.00 Encounter for change or removal of nonsurgical wound dressing (principal)
CPT/HCPCS: 99281; 99282